=== PATIENT | female | born 1980 | race Caucasian/White ===

== ENCOUNTER 2019-10-21 18:29 | Emergency (ER) | payer OTHER ==
--- NOTE | 2019-10-21 19:31 | RAD REPORT ---
[facility] 7[facility]17 pm CLINICAL HISTORY: Chest pain COMPARISON: none FINDINGS: Lungs are hyperaerated The lungs appear clear of acute infiltrate. The heart is normal size
[2019-10-21 19:51] LABS: Absolute Lymphocytes (CBC) 2.5 K/uL (0.7-4.9); Basophils % 0.6 % (0-1.3); Hematocrit 40.2 % (36.0-45.0); Lymphocytes % 32.9 % (15.3-44.8); MPV 8.3 fL (7.6-11.3)
[2019-10-21] MEDS ORDERED: HYDROCODONE/APAP 5/325 MG TAB ONE (20:01)
[2019-10-21 20:21] LABS: BUN Blood Urea Nitrogen 4 mg/dL (7-18); Bicarbonate 28 mmol/L (21-32); Glucose Level 85 mg/dL (74-106); Magnesium 2.3 mg/dL (1.8-2.4); NT PRO-BNP 22 pg/mL (<125); Sodium Level 139 mmol/L (136-145); Troponin (Emerg Dept Use Only) < 0.02 ng/mL (0.0-0.045)
[2019-10-21] MEDS ORDERED: NA CHLORIDE 0.9% 250 ML ONE (20:32)
[2019-10-21] MEDS ORDERED: KCL 20 MEQ/100 mL IVPB 20 MEQ/100 ML BAG IV ONE (20:33)
[2019-10-21 20:37] LABS: Urine Blood NEGATIVE (NEG); Urine Glucose NEGATIVE (NEG); Urine Protein NEGATIVE (NEG); Urine Specific Gravity <1.005 (1.005-1.030); Urine pH 6.5 (5.0-7.0)
--- NOTE | 2019-10-21 22:14 | EDPHYS ---
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 19:38 The patient presents with a history of heart racing. Context: The symptoms occur at rn rest. 19:38 Onset: The symptoms/episode began/occurred at an unknown time. 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 Modifying factors: The symptoms are aggravated by nothing. The symptoms are alleviated by nothing. Associated signs and symptoms: Pertinent positives: lightheadedness, Pertinent negatives: chest pain, fever, SOB, syncope, near-syncope, vertigo, vomiting. Severity of symptoms: At their worst the symptoms were mild in the emergency department the symptoms are unchanged. The patient has experienced similar episodes in the past. Reports hx of tachycardia, unspecified, reports recently her cardia pp which has 6 lead ecg, showing HR between 100-130s, no chest pain/sob, assoc with dizziness but no syncope. Has had multiple w/u in past including 2 holter monitors that didn't show abnormality, prescribed propranolol in past. Denies current illness/vomiting/diarrhea/drugs. . 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 ca1 Historical: - Allergies: 18:46 Sulfa (Sulfonamide Antibiotics); ca1 18:46 Demerol; ca1 - Home Meds: 18:46 Wellbutrin Oral [Active]; gabapentin oral oral [Active]; amitriptyline Oral [Active]; ca1 eszopiclone oral oral [Active]; propranolol Oral [Active]; Omeprazole Oral [Active]; Promethazine Oral [Active]; - PMHx: 18:46 Gastroparesis; tachycardia; Asthma; Nerve pains; ca1 - PSHx: 18:46 Tonsillectomy; staph infection removed from shoulder; right knee surgery; plate to ca1 right leg; screws to right ankle; band and screws to left ankle; - Immunization history:: Adult Immunizations up to date, Flu vaccine is up to date. - Social history:: Smoking status: Patient denies any tobacco usage or history of. Patient/guardian denies using tobacco, the patient reports quitting approximately 3 years ago. - Family history:: not pertinent. - Hospitalizations: : No recent hospitalization is reported. ROS: 19:38 Constitutional: Negative for fever, chills, and weight loss, Eyes: Negative for injury, rn pain, redness, and discharge, Neck: Negative for injury, pain, and swelling, Cardiovascular: Negative for chest pain, and edema, Respiratory: Negative for shortness of breath, cough, wheezing Abdomen/GI: Negative for abdominal pain, nausea, vomiting, diarrhea, and constipation, MS/Extremity: Negative for injury and deformity, Skin: Negative for injury, rash, and discoloration, Neuro: Negative for headache, weakness, numbness, tingling, and seizure. Exam: 19:18 ECG was reviewed by the Attending Physician. rn 19:38 Constitutional: This is a well developed, well nourished patient who is awake, alert, rn and in no acute distress. Head/Face: Normocephalic, atraumatic. Eyes: Pupils equal round and reactive to light, extra-ocular motions intact. Lids and lashes normal. Conjunctiva and sclera are non-icteric and not injected. Cornea within normal limits. Periorbital areas with no swelling, redness, or edema. Cardiovascular: Tachycardic, regular, intact distal pulses Respiratory: Lungs have equal breath sounds bilaterally, clear to auscultation. No increased work of breathing, no retractions or nasal flaring. Skin: Warm, dry with normal turgor. Normal color with no rashes, no lesions, and no evidence of cellulitis. MS/ Extremity: Pulses equal, no cyanosis. Neurovascular intact. Full, normal range of motion. Equal circumference. Neuro: Awake and alert, GCS 15, oriented to person, place, time, and situation. Cranial nerves II-XII grossly intact. Motor strength 5/5 in all extremities. Sensory grossly intact. Cerebellar exam normal. Vital Signs: 18:39 BP 143 / 86; Pulse 112; Resp 16 S; Temp 98.4(O); Pulse Ox 98% on R/A; Weight 59.42 kg ca1 (R); Height 5 ft. 5 in. (165.10 cm) (R); 19:30 BP 132 / 94; Pulse 97; Resp 15; Pulse Ox 100% on R/A; lp1 20:30 BP 148 / 78; Pulse 96; Resp 18; Pulse Ox 100% on R/A; lp1 21:30 BP 132 / 84; Pulse 93; Resp 20; Pulse Ox 100% on R/A; lp1 18:39 Body Mass Index 21.80 (59.42 kg, 165.10 cm) ca1 MDM: 18:58 Patient medically screened. rn 22:11 Differential diagnosis: arrythmia, dehydration, stress disorder, PE, dehydration, rn effects from smoking, infection, electrolyte abnormality. Data reviewed: vital signs, nurses notes, lab test result(s), EKG, radiologic studies, CT scan, plain films, and as a result, I will discharge patient. Counseling: I had a detailed discussion with the patient and/or guardian regarding: the historical points, exam findings, and any diagnostic results supporting the discharge/admit diagnosis, lab results, radiology results, the need for outpatient follow up, to return to the emergency department if symptoms worsen or persist or if there are any questions or concerns that arise at home. Response to treatment: the patient's symptoms have markedly improved after treatment, and as a result, I will discharge patient. Special discussion: I discussed with the patient/guardian in detail that at this point there is no indication for admission to the hospital. It is understood, however, that if the symptoms persist or worsen the patient needs to return immediately for re-evaluation. Based on the history and exam findings, there is no indication for further emergent testing or inpatient evaluation. I discussed with the patient/guardian the need to see the internal control manager for further evaluation of the symptoms. ED course: Ct shows emphysema, spoke at length with patient, urged to f/u with pulmonology, take multivitamins for potassium, and take her propranolol that her fitness/wellness director prescribed more regularly. . 10/20 19:09 Order name: Basic Metabolic Panel; Complete Time: 20: rn 10/20 19:09 Order name: CBC with Diff; Complete Time: 20: rn 10/20 19:09 Order name: Magnesium; Complete Time: 20: rn 10/20 19:09 Order name: NT PRO-BNP; Complete Time: 20: rn 10/20 19:09 Order name: Troponin (emerg Dept Use Only); Complete Time: 20:22 rn 10/20 19:09 Order name: D-Dimer; Complete Time: 20:02 rn 10/20 19:09 Order name: XRAY Chest (1 view); Complete Time: 19:50 rn 10/20 19:09 Order name: TSH; Complete Time: 20:22 rn 10/20 19:09 Order name: T4 Free; Complete Time: 20:22 rn 10/20 20:02 Order name: CT Chest For PE Angio rn 10/20 20:27 Order name: Urine Dipstick--Ancillary (enter results); Complete Time: 22:01 mw2 10/20 19:09 Order name: EKG; Complete Time: 19:10 rn 10/20 19:09 Order name: Cardiac monitoring; Complete Time: 19:45 rn 10/20 19:09 Order name: EKG - Nurse/Tech; Complete Time: 19:45 rn 10/20 19:09 Order name: IV Saline Lock; Complete Time: 19:45 rn 10/20 19:09 Order name: Labs collected and sent; Complete Time: 19:45 rn 10/20 19:09 Order name: O2 Per Protocol; Complete Time: 19:46 rn 10/20 19:09 Order name: O2 Sat Monitoring; Complete Time: 19:46 rn EC:18 Rate is 110 beats/min. Rhythm is regular. QRS [place] is Normal. ME interval is normal. rn QRS interval is normal. QT interval is normal. No Q waves. T waves are Normal. No ST changes noted. Clinical impression: Normal ECG and Sinus tachycardia. Interpreted by me. Reviewed by me. Administered Medications: 20:01 Drug: [place] 5 mg-325 mg 1 tabs Route: PO; lp1 21:58 Follow up: Response: Pain is decreased lp1 20:52 Drug: Potassium Chloride 20 mEq Route: IV; Rate: calculated rate; Site: right lp1 antecubital; 20:52 Drug: NS 0.9% 250 ml Route: IV; Rate: per protocol; Site: right antecubital; lp1 23:15 Follow up: IV Status: Completed infusion lp1 Disposition: 10/21/19 22:13 Discharged to Home. Impression: Tachycardia, unspecified, Hypokalemia, Emphysema, unspecified. - Condition is Stable. - Discharge Instructions: Potassium Content of Foods, Hypokalemia. - Medication Reconciliation Form, Thank You Letter, Antibiotic Education, Prescription Opioid Use form. - Follow up: Private Physician; When: As needed; Reason: Recheck today's complaints, Re-evaluation by your physician. - Problem is new. - Symptoms have improved. Signatures: Dispatcher [employer] EDMS José Manuel Villarreal MD MD rn Pena, Laura, RN RN lp1 Mae Hanks RN RN [facility] Hillary Gamboa RN RN Corrections: (The following items were deleted from the chart) 23:33 22:13 10/21/2019 22:13 Discharged to Home. Impression: Tachycardia, unspecified; ah Hypokalemia; Emphysema, unspecified. Condition is Stable. Forms are Medication Reconciliation Form, Thank You Letter, Antibiotic Education, Prescription Opioid Use. Follow up: Private Physician; When: As needed; Reason: Recheck today's complaints, Re-evaluation by your physician. Problem is new. Symptoms have improved. rn
--- NOTE | 2019-10-21 22:14 | ER ---
Nurse's Notes [facility] Name: Ellie Perera Age: 38 yrs Sex: Female : 1980 Arrival Date: 10/21/2019 Time: 18:34 Bed 4 Private MD: Diagnosis: Tachycardia, unspecified;Hypokalemia;Emphysema, unspecified Presentation: 10/20 18:39 Chief complaint: Patient states: Monitoring heart rate on the [employer] humberto on phone, HR ca1 highest was 131, but is steady between 116 to 121. Reports history of tachycardia. reports dizziness, neck pain and nausea. Denies fever. Coronavirus screen: The patient has NOT traveled to [place] in the past 14 days. The patient has NOT had contact with known and/or suspected case of Coronavirus. Ebola Screen: Patient negative for fever greater than or equal to 101.5 degrees Fahrenheit, and additional compatible Ebola Virus Disease symptoms Patient denies exposure to infectious person. Patient denies travel to an Ebola-affected area in the 21 days before illness onset. No symptoms or risks identified at this time. Initial Sepsis Screen: Does the patient meet any 2 criteria? No. Patient's initial sepsis screen is negative. Does the patient have a suspected source of infection? No. Patient's initial sepsis screen is negative. Risk Assessment: Do you want to hurt yourself or someone else? Patient reports no desire to harm self or others. Onset of symptoms was October 21, 2019. 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 ca1 Historical: - Allergies: 18:46 Sulfa (Sulfonamide Antibiotics); ca1 18:46 Demerol; ca1 - Home Meds: 18:46 Wellbutrin Oral [Active]; gabapentin oral oral [Active]; amitriptyline Oral [Active]; ca1 eszopiclone oral oral [Active]; propranolol Oral [Active]; Omeprazole Oral [Active]; Promethazine Oral [Active]; - PMHx: 18:46 Gastroparesis; tachycardia; Asthma; Nerve pains; ca1 - PSHx: 18:46 Tonsillectomy; staph infection removed from shoulder; right knee surgery; plate to ca1 right leg; screws to right ankle; band and screws to left ankle; - Immunization history:: Adult Immunizations up to date, Flu vaccine is up to date. - Social history:: Smoking status: Patient denies any tobacco usage or history of. Patient/guardian denies using tobacco, the patient reports quitting approximately 3 years ago. - Family history:: not pertinent. - Hospitalizations: : No recent hospitalization is reported. Screenin:44 Abuse screen: Denies threats or abuse. Denies injuries from another. Nutritional lp1 screening: No deficits noted. Tuberculosis screening: No symptoms or risk factors identified. Fall Risk None identified. Assessment: 19:29 General: Appears in no apparent distress. Behavior is calm, cooperative, appropriate lp1 for age. Pain: Complains of pain in chest, bilateral lower legs. Neuro: Level of Consciousness is awake, alert, obeys commands, Oriented to person, place, time, situation, Reports dizziness. Cardiovascular: Patient's skin is warm and dry. Rhythm is sinus tachycardia. Respiratory: Respiratory effort is even, unlabored, Respiratory pattern is regular. 19:31 GI: Abdomen is flat. : No signs and/or symptoms were reported regarding the lp1 genitourinary system. EENT: No signs and/or symptoms were reported regarding the EENT system. Derm: Skin is pink, warm \T\ dry. Musculoskeletal: No deficits noted. 19:57 Reassessment: Provider notified of patient complaint of chronic leg pain, pain scale of lp1 8/10; Verbal order for [place] 5-325 PO now. 21:09 Reassessment: Patient is alert, oriented x 3, equal unlabored respirations, skin lp1 warm/dry/pink. Patient returned from CT at this time; No further needs at this time. 22:30 Reassessment: Patient aware of pending discharge; Potassium infusion continuing. lp1 Vital Signs: 18:39 BP 143 / 86; Pulse 112; Resp 16 S; Temp 98.4(O); Pulse Ox 98% on R/A; Weight 59.42 kg ca1 (R); Height 5 ft. 5 in. (165.10 cm) (R); 19:30 BP 132 / 94; Pulse 97; Resp 15; Pulse Ox 100% on R/A; lp1 20:30 BP 148 / 78; Pulse 96; Resp 18; Pulse Ox 100% on R/A; lp1 21:30 BP 132 / 84; Pulse 93; Resp 20; Pulse Ox 100% on R/A; lp1 18:39 Body Mass Index 21.80 (59.42 kg, 165.10 cm) ca1 ED Course: 18:34 Patient arrived in ED. mr 18:41 Triage completed. ca1 18:46 Arm band placed on. ca1 18:58 José Manuel Villarreal MD is Attending Physician. rn 19:15 Patient has correct armband on for positive identification. Placed in gown. Bed in low lp1 position. Call light in reach. lunchroom monitor on. Pulse ox on. NIBP on. 19:19 XRAY Chest (1 view) In Process Unspecified. EDMS 19:29 Stephanie Loving, RN is Primary Nurse. lp1 19:40 Inserted saline lock: 20 gauge in right antecubital area, using aseptic technique. lp1 Blood collected. 20:02 Notified ED physician of a critical lab result(s). D-dimer of 511. jd3 21:[address] back from [address]. 21:13 CT Chest For PE Angio In Process Unspecified. EDMS 23:20 No provider procedures requiring assistance completed. IV discontinued, intact, bleeding controlled, No redness/swelling at site. Pressure dressing applied. Administered Medications: 20:01 Drug: [place] 5 mg-325 mg 1 tabs Route: PO; lp1 21:58 Follow up: Response: Pain is decreased lp1 20:52 Drug: Potassium Chloride 20 mEq Route: IV; Rate: calculated rate; Site: right lp1 antecubital; 20:52 Drug: NS 0.9% 250 ml Route: IV; Rate: per protocol; Site: right antecubital; lp1 23:15 Follow up: IV Status: Completed infusion lp1 Outcome: 22:13 Discharge ordered by . rn 23:20 Discharged to home ambulatory. 23:20 Condition: good 23:20 Discharge instructions given to patient, family, Instructed on discharge instructions, follow up and referral plans. Demonstrated understanding of instructions, follow-up care. 23:33 Patient left the ED. Signatures: Dispatcher [employer] EDCO Marla Perera José Manuel Villarreal MD MD rn Pena, Laura, RN RN lp1 Jose Malin RN RN jd3 Mae Hanks RN RN ca1 Hillary Gamboa RN RN Corrections: (The following items were deleted from the chart) 18:47 18:46 LMP 10/13/2019 ca1 ca1 19:55 19:29 Pain: Complains of pain in chest lp1 lp1 20:04 19:57 Reassessment: Provider notified of patient complaint of leg pain; Verbal order lp1 for [place] 5-325 PO now lp1 22:48 20:30 BP 148 / ???; Pulse 78bpm; Resp 96bpm; Pulse Ox 100% RA; lp1 lp1
[2019-10-22 02:09] VITALS: TEMP 98.4
[2019-10-22 02:11] VITALS: O2SAT 100
[2019-10-22 02:14] VITALS: BP 132/84
--- NOTE | 2019-10-22 08:24 | EKG ---
Test Date: 2019-10-21 Test Time: 19:16:42 Trim Technician: Aileen FRAIRE MEASUREMENT RESULTS: Intervals: Rate: 110 CA: 180 QRSD: 86 QT: 338 QTc: 457 [place]: P: 75 CA: 180 QRS: 69 T: 47 INTERPRETIVE STATEMENTS: Sinus tachycardia Otherwise normal ECG No previous ECG available for comparison Electronically Signed On 10-22-19 08:23:52 EXECUTIVE ADMIN by Shree Gamboa
--- NOTE | 2019-10-22 11:02 | RAD REPORT ---
EXAM DESCRIPTION: CT Chest For PE Angio CLINICAL HISTORY: 38 years Female Chest pain; Palpitations TECHNIQUE: Contiguous axial images obtained through the chest were obtained from the thoracic inlet to the level of the upper abdomen during the pulmonary arterial phase of intravenous contrast adminis tration. Coronal, sagittal, and coronal oblique reformatted images provided. This CT exam was performed according to our departmental dose-optimization program, which includes on e or more of the following dose reduction techniques: automated exposure control, adjustment of the m A and/or kV according to patient size, and/or use of iterative reconstruction technique. COMPARISON: No prior exams provided for comparison. FINDINGS: There is no pulmonary embolus. The thoracic aorta is normal without aneurysm or dissection. The heart is normal in size without niurka cardial effusion. Mild to moderate paraseptal emphysema. No focal airspace infiltrate, pleural effusion, or pneumothora x. The central airways are patent. No enlarged mediastinal lymph nodes. There are no visualized acute osseous or upper abdominal abnormalities. IMPRESSION: No pulmonary embolus. Emphysema. No acute cardiopulmonary findings. Electronically signed by: Yudelka Gibbs MD 10/21/2019 9:40 PM CENTER CONSULTANT Due to temporary technical issues with the PACS/Fluency reporting system, reports are being signed by the in house radiologist as a courtesy to ensure prompt reporting. The interpreting radiologist is f ully responsible for the content of the report.
== END 2019-10-21 23:33 | disposition home or self-care (01) ==
LOC: ER 18:29
DX: R00.0 Tachycardia, unspecified (principal); E87.6 Hypokalemia; J43.9 Emphysema, unspecified; J45.909 Unspecified asthma, uncomplicated; Z88.2 Allergy status to sulfonamides; Z88.5 Allergy status to narcotic agent
CPT/HCPCS: 96365; 93005; 85025; 80048; 36415; 83735; 85379; 84443; 81003; 84484; 84439; 83880; 71275; 71045; 96375; 99285; 96366; Q9967; J7030

== ENCOUNTER 2022-10-21 04:24 | Emergency (ER) | payer OTHER ==
--- OUTSIDE RECORDS SUMMARY | 2022-10-21 04:43 | XMS REPORT | Continuity of Care Document ---
:[address] [facility] t Address [address] [place] [address] Care Team Providers Name Role Phone Luanne De La Rosa Primary Care Physician [phone] Problems This patient has no known problems. Allergies, Adverse Reactions, Alerts Allergy Allergy Status Severity Reaction(s) Onset Inactive Treating Comm ents Source Name Type Date Date Clinician n Propensi Active ty to 6-27 adverse 00:00: reaction 00 to drug Demerol Propensi Active - Oral ty to 3-28 adverse 00:00: reaction 00 to drug Sulfa Propensi Active (Sulfona ty to 1-17 mide adverse 00:00: Antibiot reaction 00 ics) to drug Medications Ordered Filled Start Stop Current Ordering Indication Dosage Frequency Signature Comments Components Source Medication Medication Date Date Medication? Clinician (SIG) Name Name TAKE 08-21 No CAPSULES BY 0-19 MOUTH THREE 00:00: TIMES DAILY 00 NEEDED TAKE 08-21 No CAPSULES BY 0-19 MOUTH THREE 00:00: TIMES DAILY 00 NEEDED TAKE 08-21 No CAPSULES BY 0-19 MOUTH THREE 00:00: TIMES DAILY 00 NEEDED TAKE 2021-08 No TABLET BY 0-18 MOUTH EVERY 00:00: DAY 00 TAKE 2021-08 No TABLET BY 0-18 MOUTH EVERY 00:00: DAY 00 TAKE 2021-08 No TABLET BY 0-18 MOUTH EVERY 00:00: DAY 00 TAKE No 300 TABLET BY 8-16 MOUTH EVERY 00:00: DAY 00 TAKE No 300 TABLET BY 8-16 MOUTH EVERY 00:00: DAY 00 TAKE No 300 TABLET BY 8-16 MOUTH EVERY 00:00: DAY 00 TAKE 1 2022-0 No 300 TABLET BY 8-16 MOUTH EVERY 00:00: DAY 00 TAKE 1-2 2022-0 No 300 CAPSULES BY 8-15 MOUTH THREE 00:00: TIMES DAILY 00 NEEDED TAKE 1-2 2022-0 No 300 CAPSULES BY 8-15 MOUTH THREE 00:00: TIMES DAILY 00 NEEDED TAKE 1-2 2022-0 No 300 CAPSULES BY 8-15 MOUTH THREE 00:00: TIMES DAILY 00 NEEDED TAKE 1-2 2022-0 No 300 CAPSULES BY 8-15 MOUTH THREE 00:00: TIMES DAILY 00 NEEDED TAKE 1 TO 2 2022-0 No CAPSULES BY 6-27 MOUTH THREE 00:00: TIMES DAILY 00 NEEDED &lt 2022-0 No 6-27 00:00: 00 INHALE 1 2022-0 No PUFF BY 6-27 MOUTH EVERY 00:00: 24 HOURS 00 TAKE 1 TO 2 2022-0 No CAPSULES BY 6-27 MOUTH THREE 00:00: TIMES DAILY 00 NEEDED &lt 2022-0 No 6-27 00:00: 00 INHALE 1 2022-0 No PUFF BY 6-27 MOUTH EVERY 00:00: 24 HOURS 00 TAKE 1 TO 2 2022-0 No CAPSULES BY 6-27 MOUTH THREE 00:00: TIMES DAILY 00 NEEDED &lt 2022-0 No 6-27 00:00: 00 INHALE 1 2022-0 No PUFF BY 6-27 MOUTH EVERY 00:00: 24 HOURS 00 TAKE 1 TO 2 2022-0 No CAPSULES BY 6-27 MOUTH THREE 00:00: TIMES DAILY 00 NEEDED &lt 2022-0 No 6-27 00:00: 00 INHALE 1 2022-0 No PUFF BY 6-27 MOUTH EVERY 00:00: 24 HOURS 00 Dose 2022-0 No Unknown 4-07 00:00: 00 Dose 2022-0 No Unknown 4-07 00:00: 00 Dose 2022-0 No Unknown 4-07 00:00: 00 Dose 2022-0 No Unknown 4-07 00:00: 00 Dose 2022-0 No Unknown 4-07 00:00: 00 Dose 2022-0 No Unknown 4-07 00:00: 00 Dose 2022-0 No Unknown 4-07 00:00: 00 Dose 2022-0 No Unknown 4-07 00:00: 00 Dose 2022-0 No Unknown 4-07 00:00: 00 Dose 2022-0 No Unknown 4-07 00:00: 00 Dose 2022-0 No Unknown 4-07 00:00: 00 Dose 2022-0 No Unknown 4-07 00:00: 00 Dose 2022-0 No Unknown 4-07 00:00: 00 Dose 2022-0 No Unknown 4-07 00:00: 00 Dose 2022-0 No Unknown 4-07 00:00: 00 Dose 2022-0 No Unknown 4-07 00:00: 00 Dose 2022-0 No Unknown 4-07 00:00: 00 Dose 2022-0 No Unknown 4-07 00:00: 00 Dose 2022-0 No Unknown 4-07 00:00: 00 Dose 2022-0 No Unknown 4-07 00:00: 00 Dose 2022-0 No Unknown 4-07 00:00: 00 Dose 2022-0 No Unknown 4-07 00:00: 00 Dose 2022-0 No Unknown 4-07 00:00: 00 Dose 2022-0 No Unknown 4-07 00:00: 00 Dose 2022-0 No Unknown 4-06 00:00: 00 Dose 2022-0 No Unknown 4-06 00:00: 00 Dose 2022-0 No Unknown 4-06 00:00: 00 Dose 2022-0 No Unknown 4-06 00:00: 00 Dose 2022-0 No Unknown 4-06 00:00: 00 Dose 2022-0 No Unknown 4-06 00:00: 00 Dose 2022-0 No Unknown 4-06 00:00: 00 Dose 2022-0 No Unknown 4-06 00:00: 00 Dose 2022-0 No Unknown 4-06 00:00: 00 Dose 2022-0 No Unknown 4-06 00:00: 00 Dose 2022-0 No Unknown 4-06 00:00: 00 Dose 2022-0 No Unknown 4-06 00:00: 00 pravastatin 2022-0 No 1mg 40 mg 4-01 tablet 00:00: 00 pravastatin 2022-0 No 1mg 40 mg 4-01 tablet 00:00: 00 pravastatin 2022-0 No 1mg 40 mg 4-01 tablet 00:00: 00 pravastatin 2022-0 No 1mg 40 mg 4-01 tablet 00:00: 00 Dose 2022-0 No Unknown 3-28 00:00: 00 Dose 2022-0 No Unknown 3-28 00:00: 00 Dose 2022-0 No Unknown 3-28 00:00: 00 Dose 2022-0 No Unknown 3-28 00:00: 00 Dose 2022-0 No Unknown 3-28 00:00: 00 Dose 2022-0 No Unknown 3-28 00:00: 00 Dose 2022-0 No Unknown 3-28 00:00: 00 Dose 2022-0 No Unknown 3-28 00:00: 00 Dose 2022-0 No Unknown 3-28 00:00: 00 Dose 2022-0 No Unknown 3-28 00:00: 00 Dose 2022-0 No Unknown 3-28 00:00: 00 Dose 2022-0 No Unknown 3-28 00:00: 00 Dose 2022-0 No Unknown 3-28 00:00: 00 Dose 2022-0 No Unknown 3-28 00:00: 00 Dose 2022-0 No Unknown 3-28 00:00: 00 Dose 2022-0 No Unknown 3-28 00:00: 00 Dose 2022-0 No Unknown 3-28 00:00: 00 Dose 2022-0 No Unknown 3-28 00:00: 00 Dose 2022-0 No Unknown 3-28 00:00: 00 Dose 2022-0 No Unknown 3-28 00:00: 00 Dose 2022-0 No Unknown 3-28 00:00: 00 Dose 2022-0 No Unknown 3-28 00:00: 00 Dose 2022-0 No Unknown 3-28 00:00: 00 Dose 2022-0 No Unknown 3-28 00:00: 00 Dose 2022-0 No Unknown 3-28 00:00: 00 Dose 2022-0 No Unknown 3-28 00:00: 00 Dose 2022-0 No Unknown 3-28 00:00: 00 Dose 2022-0 No Unknown 3-28 00:00: 00 Dose 2022-0 No Unknown 3-28 00:00: 00 Dose 2022-0 No Unknown 3-28 00:00: 00 Dose 2022-0 No Unknown 3-28 00:00: 00 Dose 2022-0 No Unknown 3-28 00:00: 00 Dose 2022-0 No Unknown 3-28 00:00: 00 Dose 2022-0 No Unknown 3-28 00:00: 00 Dose 2022-0 No Unknown 3-28 00:00: 00 Dose 2022-0 No Unknown 3-28 00:00: 00 Dose 2022-0 No Unknown 3-28 00:00: 00 Dose 2022-0 No Unknown 3-28 00:00: 00 Dose 2022-0 No Unknown 3-28 00:00: 00 Dose 2022-0 No Unknown 3-28 00:00: 00 Dose 2022-0 No Unknown 3-28 00:00: 00 Dose 2022-0 No Unknown 3-28 00:00: 00 Dose 2022-0 No Unknown 3-28 00:00: 00 Dose 2022-0 No Unknown 3-28 00:00: 00 Dose 2022-0 No Unknown 3-28 00:00: 00 Dose 2022-0 No Unknown 3-28 00:00: 00 Dose 2022-0 No Unknown 3-28 00:00: 00 Dose 2022-0 No Unknown 3-28 00:00: 00 Dose 2022-0 No Unknown 3-28 00:00: 00 Dose 2022-0 No Unknown 3-28 00:00: 00 Dose 2022-0 No Unknown 3-28 00:00: 00 Dose 2022-0 No Unknown 3-28 00:00: 00 Dose 2022-0 No Unknown 3-28 00:00: 00 Dose 2022-0 No Unknown 3-28 00:00: 00 Dose 2022-0 No Unknown 3-28 00:00: 00 Dose 2022-0 No Unknown 3-28 00:00: 00 Dose 2022-0 No Unknown 3-28 00:00: 00 Dose 2022-0 No Unknown 3-28 00:00: 00 Dose 2022-0 No Unknown 3-28 00:00: 00 Dose 2022-0 No Unknown 3-28 00:00: 00 Dose 2022-0 No Unknown 3-28 00:00: 00 Dose 2022-0 No Unknown 3-28 00:00: 00 Dose 2022-0 No Unknown 3-28 00:00: 00 Dose 2022-0 No Unknown 3-28 00:00: 00 Dose 2022-0 No Unknown 3-28 00:00: 00 Dose 2022-0 No Unknown 3-28 00:00: 00 Dose 2022-0 No Unknown 3-28 00:00: 00 Dose 2022-0 No Unknown 3-28 00:00: 00 Dose 2022-0 No Unknown 3-28 00:00: 00 Dose 2022-0 No Unknown 3-28 00:00: 00 Dose 2022-0 No Unknown 3-28 00:00: 00 Dose 2022-0 No Unknown 3-28 00:00: 00 Dose 2022-0 No Unknown 3-28 00:00: 00 Dose 2022-0 No Unknown 3-28 00:00: 00 Dose 2022-0 No Unknown 3-28 00:00: 00 Dose 2022-0 No Unknown 3-28 00:00: 00 Dose 2022-0 No Unknown 3-28 00:00: 00 Dose 2022-0 No Unknown 3-28 00:00: 00 Dose 2022-0 No Unknown 3-28 00:00: 00 Dose 2022-0 No Unknown 3-28 00:00: 00 Dose 2022-0 No Unknown 3-28 00:00: 00 Dose 2022-0 No Unknown 3-28 00:00: 00 Dose 2022-0 No Unknown 3-28 00:00: 00 Dose 2022-0 No Unknown 3-28 00:00: 00 Dose 2022-0 No Unknown 3-28 00:00: 00 Dose 2022-0 No Unknown 3-28 00:00: 00 Dose 2022-0 No Unknown 3-28 00:00: 00 Dose 2022-0 No Unknown 3-28 00:00: 00 Dose 2022-0 No Unknown 3-28 00:00: 00 Dose 2022-0 No Unknown 3-28 00:00: 00 Dose 2022-0 No Unknown 3-28 00:00: 00 Dose 2022-0 No Unknown 3-28 00:00: 00 Dose 2022-0 No Unknown 3-28 00:00: 00 Dose 2022-0 No Unknown 3-28 00:00: 00 Dose 2022-0 No Unknown 3-28 00:00: 00 Dose 2022-0 No Unknown 3-28 00:00: 00 Dose 2022-0 No Unknown 3-28 00:00: 00 Dose 2022-0 No Unknown 3-28 00:00: 00 Dose 2022-0 No Unknown 3-28 00:00: 00 Dose 2022-0 No Unknown 3-28 00:00: 00 Dose 2022-0 No Unknown 3-28 00:00: 00 Dose 2022-0 No Unknown 3-28 00:00: 00 Dose 2022-0 No Unknown 3-28 00:00: 00 Dose 2022-0 No Unknown 3-28 00:00: 00 Dose 2022-0 No Unknown 3-28 00:00: 00 Dose 2022-0 No Unknown 3-28 00:00: 00 Dose 2022-0 No Unknown 3-28 00:00: 00 Dose 2022-0 No Unknown 3-28 00:00: 00 Dose 2022-0 No Unknown 3-28 00:00: 00 Dose 2022-0 No Unknown 3-28 00:00: 00 Dose 2022-0 No Unknown 3-28 00:00: 00 Dose 2022-0 No Unknown 3-28 00:00: 00 Dose 2022-0 No Unknown 3-28 00:00: 00 Dose 2022-0 No Unknown 3-28 00:00: 00 Dose 2022-0 No Unknown 3-28 00:00: 00 Dose 2022-0 No Unknown 3-28 00:00: 00 Dose 2022-0 No Unknown 3-28 00:00: 00 Dose 2022-0 No Unknown 3-28 00:00: 00 Dose 2022-0 No Unknown 3-28 00:00: 00 Dose 2022-0 No Unknown 3-28 00:00: 00 Dose 2022-0 No Unknown 3-28 00:00: 00 Dose 2022-0 No Unknown 3-28 00:00: 00 Dose 2022-0 No Unknown 3-28 00:00: 00 Dose 2022-0 No Unknown 3-28 00:00: 00 Dose 2022-0 No Unknown 3-28 00:00: 00 Dose 2022-0 No Unknown 3-28 00:00: 00 Dose 2022-0 No Unknown 3-28 00:00: 00 Dose 2022-0 No Unknown 3-28 00:00: 00 Dose 2022-0 No Unknown 3-28 00:00: 00 Dose 2022-0 No Unknown 3-28 00:00: 00 Dose 2022-0 No Unknown 3-28 00:00: 00 Dose 2022-0 No Unknown 3-28 00:00: 00 Dose 2022-0 No Unknown 3-28 00:00: 00 Dose 2022-0 No Unknown 3-28 00:00: 00 Dose 2022-0 No Unknown 3-28 00:00: 00 Dose 2022-0 No Unknown 3-28 00:00: 00 Dose 2022-0 No Unknown 3-28 00:00: 00 Dose 2022-0 No Unknown 3-28 00:00: 00 Dose 2022-0 No Unknown 3-28 00:00: 00 Dose 2022-0 No Unknown 3-28 00:00: 00 Dose 2022-0 No Unknown 3-28 00:00: 00 Dose 2022-0 No Unknown 3-28 00:00: 00 Dose 2022-0 No Unknown 3-28 00:00: 00 Dose 2022-0 No Unknown 3-28 00:00: 00 Dose 2022-0 No Unknown 3-28 00:00: 00 Dose 2022-0 No Unknown 3-28 00:00: 00 Dose 2022-0 No Unknown 3-28 00:00: 00 Dose 2022-0 No Unknown 3-28 00:00: 00 Dose 2022-0 No Unknown 3-28 00:00: 00 Dose 2022-0 No Unknown 3-28 00:00: 00 Dose 2022-0 No Unknown 3-28 00:00: 00 Dose 2022-0 No Unknown 3-28 00:00: 00 Dose 2022-0 No Unknown 3-28 00:00: 00 Dose 2022-0 No Unknown 3-28 00:00: 00 Dose 2022-0 No Unknown 3-28 00:00: 00 Dose 2022-0 No Unknown 3-28 00:00: 00 Dose 2022-0 No Unknown 3-28 00:00: 00 Dose 2022-0 No Unknown 3-28 00:00: 00 Dose 2022-0 No Unknown 3-28 00:00: 00 Dose 2022-0 No Unknown 3-28 00:00: 00 Dose 2022-0 No Unknown 3-28 00:00: 00 Dose 2022-0 No Unknown 3-28 00:00: 00 Dose 2022-0 No Unknown 3-28 00:00: 00 Dose 2022-0 No Unknown 3-28 00:00: 00 Dose 2022-0 No Unknown 3-28 00:00: 00 Dose 2022-0 No Unknown 3-28 00:00: 00 Dose 2022-0 No Unknown 3-28 00:00: 00 Dose 2022-0 No Unknown 3-28 00:00: 00 Dose 2022-0 No Unknown 3-28 00:00: 00 Dose 2022-0 No Unknown 3-28 00:00: 00 Dose 2022-0 No Unknown 3-28 00:00: 00 Dose 2022-0 No Unknown 3-28 00:00: 00 Dose 2022-0 No Unknown 3-28 00:00: 00 Dose 2022-0 No Unknown 3-28 00:00: 00 Dose 2022-0 No Unknown 3-28 00:00: 00 Dose 2022-0 No Unknown 3-28 00:00: 00 Dose 2022-0 No Unknown 3-28 00:00: 00 Dose 2022-0 No Unknown 3-28 00:00: 00 Dose 2022-0 No Unknown 3-28 00:00: 00 Dose 2022-0 No Unknown 3-28 00:00: 00 Dose 2022-0 No Unknown 3-28 00:00: 00 Dose 2022-0 No Unknown 3-28 00:00: 00 Dose 2022-0 No Unknown 3-28 00:00: 00 Dose 2022-0 No Unknown 3-28 00:00: 00 Dose 2022-0 No Unknown 3-28 00:00: 00 Dose 2022-0 No Unknown 3-28 00:00: 00 Dose 2022-0 No Unknown 3-28 00:00: 00 Dose 2022-0 No Unknown 3-28 00:00: 00 Dose 2022-0 No Unknown 3-28 00:00: 00 Dose 2022-0 No Unknown 3-28 00:00: 00 Dose 2022-0 No Unknown 3-28 00:00: 00 Dose 2022-0 No Unknown 3-28 00:00: 00 Dose 2022-0 No Unknown 3-28 00:00: 00 Dose 2022-0 No Unknown 3-28 00:00: 00 Dose 2022-0 No Unknown 3-28 00:00: 00 Dose 2022-0 No Unknown 3-28 00:00: 00 Dose 2022-0 No Unknown 3-28 00:00: 00 Dose 2022-0 No Unknown 3-28 00:00: 00 Dose 2022-0 No Unknown 3-28 00:00: 00 Dose 2022-0 No Unknown 3-28 00:00: 00 Dose 2022-0 No Unknown 3-28 00:00: 00 Dose 2022-0 No Unknown 3-28 00:00: 00 Dose 2022-0 No Unknown 3-28 00:00: 00 Dose 2022-0 No Unknown 3-28 00:00: 00 Dose 2022-0 No Unknown 3-28 00:00: 00 Dose 2022-0 No Unknown 3-28 00:00: 00 Dose 2022-0 No Unknown 3-28 00:00: 00 Dose 2022-0 No Unknown 3-28 00:00: 00 Dose 2022-0 No Unknown 3-28 00:00: 00 Dose 2022-0 No Unknown 3-28 00:00: 00 Dose 2022-0 No Unknown 3-28 00:00: 00 Dose 2022-0 No Unknown 3-28 00:00: 00 Dose 2022-0 No Unknown 3-28 00:00: 00 Dose 2022-0 No Unknown 3-28 00:00: 00 Dose 2022-0 No Unknown 3-28 00:00: 00 Dose 2022-0 No Unknown 3-28 00:00: 00 Dose 2022-0 No Unknown 3-28 00:00: 00 Dose 2022-0 No Unknown 3-28 00:00: 00 Dose 2022-0 No Unknown 3-28 00:00: 00 Dose 2022-0 No Unknown 3-28 00:00: 00 Dose 2022-0 No Unknown 3-28 00:00: 00 Dose 2022-0 No Unknown 3-28 00:00: 00 Dose 2022-0 No Unknown 3-28 00:00: 00 Dose 2022-0 No Unknown 3-28 00:00: 00 Dose 2022-0 No Unknown 3-28 00:00: 00 Dose 2022-0 No Unknown 3-28 00:00: 00 Dose 2022-0 No Unknown 3-28 00:00: 00 Dose 2022-0 No Unknown 3-28 00:00: 00 Dose 2022-0 No Unknown 3-28 00:00: 00 Dose 2022-0 No Unknown 3-28 00:00: 00 Dose 2022-0 No Unknown 3-28 00:00: 00 Dose 2022-0 No Unknown 3-28 00:00: 00 Dose 2022-0 No Unknown 3-28 00:00: 00 Dose 2022-0 No Unknown 3-28 00:00: 00 Dose 2022-0 No Unknown 3-28 00:00: 00 Dose 2022-0 No Unknown 3-28 00:00: 00 Dose 2022-0 No Unknown 3-28 00:00: 00 Dose 2022-0 No Unknown 3-28 00:00: 00 Dose 2022-0 No Unknown 3-28 00:00: 00 Dose 2022-0 No Unknown 3-28 00:00: 00 Dose 2022-0 No Unknown 3-28 00:00: 00 Dose 2022-0 No Unknown 3-28 00:00: 00 Dose 2022-0 No Unknown 3-28 00:00: 00 Dose 2022-0 No Unknown 3-28 00:00: 00 Dose 2022-0 No Unknown 3-28 00:00: 00 Dose 2022-0 No Unknown 3-28 00:00: 00 Dose 2022-0 No Unknown 3-28 00:00: 00 Dose 2022-0 No Unknown 3-28 00:00: 00 Dose 2022-0 No Unknown 3-28 00:00: 00 Dose 2022-0 No Unknown 3-28 00:00: 00 Dose 2022-0 No Unknown 3-28 00:00: 00 Dose 2022-0 No Unknown 3-28 00:00: 00 Dose 2022-0 No Unknown 3-28 00:00: 00 Dose 2022-0 No Unknown 3-28 00:00: 00 Dose 2022-0 No Unknown 3-28 00:00: 00 Dose 2022-0 No Unknown 3-28 00:00: 00 Dose 2022-0 No Unknown 3-28 00:00: 00 Dose 2022-0 No Unknown 3-28 00:00: 00 Dose 2022-0 No Unknown 3-28 00:00: 00 Dose 2022-0 No Unknown 3-28 00:00: 00 Dose 2022-0 No Unknown 3-28 00:00: 00 Dose 2022-0 No Unknown 3-28 00:00: 00 Dose 2022-0 No Unknown 3-28 00:00: 00 Dose 2022-0 No Unknown 3-28 00:00: 00 Dose 2022-0 No Unknown 3-28 00:00: 00 Dose 2022-0 No Unknown 3-28 00:00: 00 Dose 2022-0 No Unknown 3-28 00:00: 00 Dose 2022-0 No Unknown 3-28 00:00: 00 Dose 2022-0 No Unknown 3-28 00:00: 00 Dose 2022-0 No Unknown 3-28 00:00: 00 Dose 2022-0 No Unknown 3-28 00:00: 00 Dose 2022-0 No Unknown 3-28 00:00: 00 Dose 2022-0 No Unknown 3-28 00:00: 00 Dose 2022-0 No Unknown 3-28 00:00: 00 Dose 2022-0 No Unknown 3-28 00:00: 00 Dose 2022-0 No Unknown 3-28 00:00: 00 Dose 2022-0 No Unknown 3-28 00:00: 00 Dose 2022-0 No Unknown 3-28 00:00: 00 Dose 2022-0 No Unknown 3-28 00:00: 00 Dose 2022-0 No Unknown 3-28 00:00: 00 Dose 2022-0 No Unknown 3-28 00:00: 00 Dose 2022-0 No Unknown 3-28 00:00: 00 Dose 2022-0 No Unknown 3-28 00:00: 00 Dose 2022-0 No Unknown 3-28 00:00: 00 Dose 2022-0 No Unknown 3-28 00:00: 00 Dose 2022-0 No Unknown 3-28 00:00: 00 Dose 2022-0 No Unknown 3-28 00:00: 00 Dose 2022-0 No Unknown 3-28 00:00: 00 Dose 2022-0 No Unknown 3-28 00:00: 00 Dose 2022-0 No Unknown 3-28 00:00: 00 Dose 2022-0 No Unknown 3-28 00:00: 00 Dose 2022-0 No Unknown 3-28 00:00: 00 Dose 2022-0 No Unknown 3-28 00:00: 00 Dose 2022-0 No Unknown 3-28 00:00: 00 Dose 2022-0 No Unknown 3-28 00:00: 00 Dose 2022-0 No Unknown 3-28 00:00: 00 Dose 2022-0 No Unknown 3-28 00:00: 00 Dose 2022-0 No Unknown 3-28 00:00: 00 Dose 2022-0 No Unknown 3-28 00:00: 00 Dose 2022-0 No Unknown 3-28 00:00: 00 Dose 2022-0 No Unknown 3-28 00:00: 00 Dose 2022-0 No Unknown 3-28 00:00: 00 Dose 2022-0 No Unknown 3-28 00:00: 00 Dose 2022-0 No Unknown 3-28 00:00: 00 Dose 2022-0 No Unknown 3-28 00:00: 00 Dose 2022-0 No Unknown 3-28 00:00: 00 Dose 2022-0 No Unknown 3-28 00:00: 00 Dose 2022-0 No Unknown 3-28 00:00: 00 Dose 2022-0 No Unknown 3-28 00:00: 00 Dose 2022-0 No Unknown 3-28 00:00: 00 Dose 2022-0 No Unknown 3-28 00:00: 00 Dose 2022-0 No Unknown 3-28 00:00: 00 Dose 2022-0 No Unknown 3-28 00:00: 00 Dose 2022-0 No Unknown 3-28 00:00: 00 Dose 2022-0 No Unknown 3-28 00:00: 00 Dose 2022-0 No Unknown 3-28 00:00: 00 Dose 2022-0 No Unknown 3-28 00:00: 00 Dose 2022-0 No Unknown 3-28 00:00: 00 Dose 2022-0 No Unknown 3-28 00:00: 00 Dose 2022-0 No Unknown 3-28 00:00: 00 Dose 2022-0 No Unknown 3-28 00:00: 00 Dose 2022-0 No Unknown 3-28 00:00: 00 Dose 2022-0 No Unknown 3-28 00:00: 00 Dose 2022-0 No Unknown 3-28 00:00: 00 Dose 2022-0 No Unknown 3-28 00:00: 00 Dose 2022-0 No Unknown 3-28 00:00: 00 Dose 2022-0 No Unknown 3-28 00:00: 00 Dose 2022-0 No Unknown 3-28 00:00: 00 Dose 2022-0 No Unknown 3-28 00:00: 00 Dose 2022-0 No Unknown 3-28 00:00: 00 Dose 2022-0 No Unknown 3-28 00:00: 00 Dose 2022-0 No Unknown 3-28 00:00: 00 Dose 2022-0 No Unknown 3-28 00:00: 00 Dose 2022-0 No Unknown 3-28 00:00: 00 Dose 2022-0 No Unknown 3-28 00:00: 00 Dose 2022-0 No Unknown 3-28 00:00: 00 Dose 2022-0 No Unknown 3-28 00:00: 00 Dose 2022-0 No Unknown 3-28 00:00: 00 Dose 2022-0 No Unknown 3-28 00:00: 00 Dose 2022-0 No Unknown 3-28 00:00: 00 Dose 2022-0 No Unknown 3-28 00:00: 00 Dose 2022-0 No Unknown 3-28 00:00: 00 Dose 2022-0 No Unknown 3-28 00:00: 00 Dose 2022-0 No Unknown 3-28 00:00: 00 Dose 2022-0 No Unknown 3-28 00:00: 00 Dose 2022-0 No Unknown 3-28 00:00: 00 Dose 2022-0 No Unknown 3-28 00:00: 00 Dose 2022-0 No Unknown 3-28 00:00: 00 Dose 2022-0 No Unknown 3-28 00:00: 00 Dose 2022-0 No Unknown 3-28 00:00: 00 Dose 2022-0 No Unknown 3-28 00:00: 00 Dose 2022-0 No Unknown 3-28 00:00: 00 Dose 2022-0 No Unknown 3-28 00:00: 00 Dose 2022-0 No Unknown 3-28 00:00: 00 Dose 2022-0 No Unknown 3-28 00:00: 00 Dose 2022-0 No Unknown 3-28 00:00: 00 Dose 2022-0 No Unknown 3-28 00:00: 00 Dose 2022-0 No Unknown 3-28 00:00: 00 Dose 2022-0 No Unknown 3-28 00:00: 00 Dose 2022-0 No Unknown 3-28 00:00: 00 Dose 2022-0 No Unknown 3-28 00:00: 00 Dose 2022-0 No Unknown 3-28 00:00: 00 Dose 2022-0 No Unknown 3-28 00:00: 00 Dose 2022-0 No Unknown 3-28 00:00: 00 Dose 2022-0 No Unknown 3-28 00:00: 00 Dose 2022-0 No Unknown 3-28 00:00: 00 Dose 2022-0 No Unknown 3-28 00:00: 00 Dose 2022-0 No Unknown 3-28 00:00: 00 Dose 2022-0 No Unknown 3-28 00:00: 00 Dose 2022-0 No Unknown 3-28 00:00: 00 Dose 2022-0 No Unknown 3-28 00:00: 00 Dose 2022-0 No Unknown 3-28 00:00: 00 Dose 2022-0 No Unknown 3-28 00:00: 00 Dose 2022-0 No Unknown 3-28 00:00: 00 Dose 2022-0 No Unknown 3-28 00:00: 00 Dose 2022-0 No Unknown 3-28 00:00: 00 Dose 2022-0 No Unknown 3-28 00:00: 00 Dose 2022-0 No Unknown 3-28 00:00: 00 Dose 2022-0 No Unknown 3-28 00:00: 00 Dose 2022-0 No Unknown 3-28 00:00: 00 Dose 2022-0 No Unknown 3-28 00:00: 00 Dose 2022-0 No Unknown 3-28 00:00: 00 Dose 2022-0 No Unknown 3-28 00:00: 00 Dose 2022-0 No Unknown 3-28 00:00: 00 Dose 2022-0 No Unknown 3-28 00:00: 00 Dose 2022-0 No Unknown 3-28 00:00: 00 Dose 2022-0 No Unknown 3-28 00:00: 00 Dose 2022-0 No Unknown 3-28 00:00: 00 Dose 2022-0 No Unknown 3-28 00:00: 00 Dose 2022-0 No Unknown 3-28 00:00: 00 Dose 2022-0 No Unknown 3-28 00:00: 00 Dose 2022-0 No Unknown 3-28 00:00: 00 Dose 2022-0 No Unknown 3-28 00:00: 00 Dose 2022-0 No Unknown 3-28 00:00: 00 Dose 2022-0 No Unknown 3-28 00:00: 00 Dose 2022-0 No Unknown 3-28 00:00: 00 Dose 2022-0 No Unknown 3-28 00:00: 00 Dose 2022-0 No Unknown 3-28 00:00: 00 Dose 2022-0 No Unknown 3-28 00:00: 00 Dose 2022-0 No Unknown 3-28 00:00: 00 Dose 2022-0 No Unknown 3-28 00:00: 00 Dose 2022-0 No Unknown 3-28 00:00: 00 Dose 2022-0 No Unknown 3-28 00:00: 00 Dose 2022-0 No Unknown 3-28 00:00: 00 Dose 2022-0 No Unknown 3-28 00:00: 00 Dose 2022-0 No Unknown 3-28 00:00: 00 Dose 2022-0 No Unknown 3-28 00:00: 00 Dose 2022-0 No Unknown 3-28 00:00: 00 Dose 2022-0 No Unknown 3-28 00:00: 00 Dose 2022-0 No Unknown 3-28 00:00: 00 Dose 2022-0 No Unknown 3-28 00:00: 00 Dose 2022-0 No Unknown 3-28 00:00: 00 Dose 2022-0 No Unknown 3-28 00:00: 00 Dose 2022-0 No Unknown 3-28 00:00: 00 Dose 2022-0 No Unknown 3-28 00:00: 00 Dose 2022-0 No Unknown 3-28 00:00: 00 Dose 2022-0 No Unknown 3-28 00:00: 00 Dose 2022-0 No Unknown 3-28 00:00: 00 Dose 2022-0 No Unknown 3-28 00:00: 00 Dose 2022-0 No Unknown 3-28 00:00: 00 Dose 2022-0 No Unknown 3-28 00:00: 00 Dose 2022-0 No Unknown 3-28 00:00: 00 Dose 2022-0 No Unknown 3-28 00:00: 00 Dose 2022-0 No Unknown 3-28 00:00: 00 Dose 2022-0 No Unknown 3-28 00:00: 00 Dose 2022-0 No Unknown 3-28 00:00: 00 Dose 2022-0 No Unknown 3-28 00:00: 00 Dose 2022-0 No Unknown 3-28 00:00: 00 Dose 2022-0 No Unknown 3-28 00:00: 00 Dose 2022-0 No Unknown 3-28 00:00: 00 Dose 2022-0 No Unknown 3-28 00:00: 00 Dose 2022-0 No Unknown 3-28 00:00: 00 Dose 2022-0 No Unknown 3-28 00:00: 00 Dose 2022-0 No Unknown 3-28 00:00: 00 Dose 2022-0 No Unknown 3-28 00:00: 00 Dose 2022-0 No Unknown 3-28 00:00: 00 Dose 2022-0 No Unknown 3-28 00:00: 00 Dose 2022-0 No Unknown 3-28 00:00: 00 Dose 2022-0 No Unknown 3-28 00:00: 00 Dose 2022-0 No Unknown 3-28 00:00: 00 Dose 2022-0 No Unknown 3-28 00:00: 00 Dose 2022-0 No Unknown 3-28 00:00: 00 Dose 2022-0 No Unknown 3-28 00:00: 00 Dose 2022-0 No Unknown 3-28 00:00: 00 Dose 2022-0 No Unknown 3-28 00:00: 00 Dose 2022-0 No Unknown 3-28 00:00: 00 Dose 2022-0 No Unknown 3-28 00:00: 00 Dose 2022-0 No Unknown 3-28 00:00: 00 Dose 2022-0 No Unknown 3-28 00:00: 00 Dose 2022-0 No Unknown 3-28 00:00: 00 Dose 2022-0 No Unknown 3-28 00:00: 00 Dose 2022-0 No Unknown 3-28 00:00: 00 Dose 2022-0 No Unknown 3-28 00:00: 00 Dose 2022-0 No Unknown 3-28 00:00: 00 Dose 2022-0 No Unknown 3-28 00:00: 00 Dose 2022-0 No Unknown 3-28 00:00: 00 Dose 2022-0 No Unknown 3-28 00:00: 00 Dose 2022-0 No Unknown 3-28 00:00: 00 Dose 2022-0 No Unknown 3-28 00:00: 00 Dose 2022-0 No Unknown 3-28 00:00: 00 Dose 2022-0 No Unknown 3-28 00:00: 00 Dose 2022-0 No Unknown 3-28 00:00: 00 Dose 2022-0 No Unknown 3-28 00:00: 00 Dose 2022-0 No Unknown 3-28 00:00: 00 Dose 2022-0 No Unknown 3-28 00:00: 00 Dose 2022-0 No Unknown 3-28 00:00: 00 Dose 2022-0 No Unknown 3-28 00:00: 00 Dose 2022-0 No Unknown 3-28 00:00: 00 Dose 2022-0 No Unknown 3-28 00:00: 00 Dose 2022-0 No Unknown 3-28 00:00: 00 Dose 2022-0 No Unknown 3-28 00:00: 00 Dose 2022-0 No Unknown 3-28 00:00: 00 Dose 2022-0 No Unknown 3-28 00:00: 00 Dose 2022-0 No Unknown 3-28 00:00: 00 Dose 2022-0 No Unknown 3-28 00:00: 00 Dose 2022-0 No Unknown 3-28 00:00: 00 Dose 2022-0 No Unknown 3-28 00:00: 00 Dose 2022-0 No Unknown 3-28 00:00: 00 Dose 2022-0 No Unknown 3-28 00:00: 00 Dose 2022-0 No Unknown 3-28 00:00: 00 Dose 2022-0 No Unknown 3-28 00:00: 00 Dose 2022-0 No Unknown 3-28 00:00: 00 Dose 2022-0 No Unknown 3-28 00:00: 00 Dose 2022-0 No Unknown 3-28 00:00: 00 Dose 2022-0 No Unknown 3-28 00:00: 00 Dose 2022-0 No Unknown 3-28 00:00: 00 Dose 2022-0 No Unknown 3-28 00:00: 00 Dose 2022-0 No Unknown 3-28 00:00: 00 Dose 2022-0 No Unknown 3-28 00:00: 00 Dose 2022-0 No Unknown 3-28 00:00: 00 Dose 2022-0 No Unknown 3-28 00:00: 00 Dose 2022-0 No Unknown 3-28 00:00: 00 Dose 2022-0 No Unknown 3-28 00:00: 00 Dose 2022-0 No Unknown 3-28 00:00: 00 Dose 2022-0 No Unknown 3-28 00:00: 00 Dose 2022-0 No Unknown 3-28 00:00: 00 Dose 2022-0 No Unknown 3-28 00:00: 00 Dose 2022-0 No Unknown 3-28 00:00: 00 Dose 2022-0 No Unknown 3-28 00:00: 00 Dose 2022-0 No Unknown 3-28 00:00: 00 Dose 2022-0 No Unknown 3-28 00:00: 00 Dose 2022-0 No Unknown 3-28 00:00: 00 Dose 2022-0 No Unknown 3-28 00:00: 00 Dose 2022-0 No Unknown 3-28 00:00: 00 Dose 2022-0 No Unknown 3-28 00:00: 00 Dose 2022-0 No Unknown 3-28 00:00: 00 Dose 2022-0 No Unknown 3-28 00:00: 00 Dose 2022-0 No Unknown 3-28 00:00: 00 Dose 2022-0 No Unknown 3-28 00:00: 00 Dose 2022-0 No Unknown 3-28 00:00: 00 Dose 2022-0 No Unknown 3-28 00:00: 00 Dose 2022-0 No Unknown 3-28 00:00: 00 Dose 2022-0 No Unknown 3-28 00:00: 00 Dose 2022-0 No Unknown 3-28 00:00: 00 Dose 2022-0 No Unknown 3-28 00:00: 00 Dose 2022-0 No Unknown 3-28 00:00: 00 Dose 2022-0 No Unknown 3-28 00:00: 00 Dose 2022-0 No Unknown 3-28 00:00: 00 Dose 2022-0 No Unknown 3-28 00:00: 00 Dose 2022-0 No Unknown 3-28 00:00: 00 Dose 2022-0 No Unknown 3-28 00:00: 00 Dose 2022-0 No Unknown 3-28 00:00: 00 Dose 2022-0 No Unknown 3-28 00:00: 00 Dose 2022-0 No Unknown 3-28 00:00: 00 Dose 2022-0 No Unknown 3-28 00:00: 00 Dose 2022-0 No Unknown 3-28 00:00: 00 Dose 2022-0 No Unknown 3-28 00:00: 00 Dose 2022-0 No Unknown 3-28 00:00: 00 Dose 2022-0 No Unknown 3-28 00:00: 00 Dose 2022-0 No Unknown 3-28 00:00: 00 Dose 2022-0 No Unknown 3-28 00:00: 00 Dose 2022-0 No Unknown 3-28 00:00: 00 Dose 2022-0 No Unknown 3-28 00:00: 00 Dose 2022-0 No Unknown 3-28 00:00: 00 Dose 2022-0 No Unknown 3-28 00:00: 00 Dose 2022-0 No Unknown 3-28 00:00: 00 Dose 2022-0 No Unknown 3-28 00:00: 00 Dose 2022-0 No Unknown 3-28 00:00: 00 Dose 2022-0 No Unknown 3-28 00:00: 00 Dose 2022-0 No Unknown 3-28 00:00: 00 Dose 2022-0 No Unknown 3-28 00:00: 00 Dose 2022-0 No Unknown 3-28 00:00: 00 Dose 2022-0 No Unknown 3-28 00:00: 00 Dose 2022-0 No Unknown 3-28 00:00: 00 Dose 2022-0 No Unknown 3-28 00:00: 00 Dose 2022-0 No Unknown 3-28 00:00: 00 Dose 2022-0 No Unknown 3-28 00:00: 00 Dose 2022-0 No Unknown 3-28 00:00: 00 Dose 2022-0 No Unknown 3-28 00:00: 00 Dose 2022-0 No Unknown 3-28 00:00: 00 Dose 2022-0 No Unknown 3-28 00:00: 00 Dose 2022-0 No Unknown 3-28 00:00: 00 Dose 2022-0 No Unknown 3-28 00:00: 00 Dose 2022-0 No Unknown 3-28 00:00: 00 Dose 2022-0 No Unknown 3-28 00:00: 00 Dose 2022-0 No Unknown 3-28 00:00: 00 Dose 2022-0 No Unknown 3-28 00:00: 00 Dose 2022-0 No Unknown 3-28 00:00: 00 Dose 2022-0 No Unknown 3-28 00:00: 00 Dose 2022-0 No Unknown 3-28 00:00: 00 Dose 2022-0 No Unknown 3-28 00:00: 00 Dose 2022-0 No Unknown 3-28 00:00: 00 Dose 2022-0 No Unknown 3-28 00:00: 00 Dose 2022-0 No Unknown 3-28 00:00: 00 Dose 2022-0 No Unknown 3-28 00:00: 00 Dose 2022-0 No Unknown 3-28 00:00: 00 Dose 2022-0 No Unknown 3-28 00:00: 00 Dose 2022-0 No Unknown 3-28 00:00: 00 Dose 2022-0 No Unknown 3-28 00:00: 00 Dose 2022-0 No Unknown 3-28 00:00: 00 Dose 2022-0 No Unknown 3-28 00:00: 00 Dose 2022-0 No Unknown 3-28 00:00: 00 Dose 2022-0 No Unknown 3-28 00:00: 00 Dose 2022-0 No Unknown 3-28 00:00: 00 Dose 2022-0 No Unknown 3-28 00:00: 00 Dose 2022-0 No Unknown 3-28 00:00: 00 Dose 2022-0 No Unknown 3-28 00:00: 00 Dose 2022-0 No Unknown 3-28 00:00: 00 Dose 2022-0 No Unknown 3-28 00:00: 00 Dose 2022-0 No Unknown 3-28 00:00: 00 Dose 2022-0 No Unknown 3-28 00:00: 00 Dose 2022-0 No Unknown 3-28 00:00: 00 Dose 2022-0 No Unknown 3-28 00:00: 00 Dose 2022-0 No Unknown 3-28 00:00: 00 Dose 2022-0 No Unknown 3-28 00:00: 00 Dose 2022-0 No Unknown 3-28 00:00: 00 Dose 2022-0 No Unknown 3-28 00:00: 00 Dose 2022-0 No Unknown 3-28 00:00: 00 Dose 2022-0 No Unknown 3-28 00:00: 00 Dose 2022-0 No Unknown 3-28 00:00: 00 Dose 2022-0 No Unknown 3-28 00:00: 00 Dose 2022-0 No Unknown 3-28 00:00: 00 Dose 2022-0 No Unknown 3-28 00:00: 00 Dose 2022-0 No Unknown 3-28 00:00: 00 Dose 2022-0 No Unknown 3-28 00:00: 00 Dose 2022-0 No Unknown 3-28 00:00: 00 Dose 2022-0 No Unknown 3-28 00:00: 00 Dose 2022-0 No Unknown 3-28 00:00: 00 Dose 2022-0 No Unknown 3-28 00:00: 00 Dose 2022-0 No Unknown 3-28 00:00: 00 Dose 2022-0 No Unknown 3-28 00:00: 00 Dose 2022-0 No Unknown 3-28 00:00: 00 Dose 2022-0 No Unknown 3-28 00:00: 00 Dose 2022-0 No Unknown 3-28 00:00: 00 Dose 2022-0 No Unknown 3-28 00:00: 00 Dose 2022-0 No Unknown 3-28 00:00: 00 Dose 2022-0 No Unknown 3-28 00:00: 00 Dose 2022-0 No Unknown 3-28 00:00: 00 Dose 2022-0 No Unknown 3-28 00:00: 00 Dose 2022-0 No Unknown 3-28 00:00: 00 Dose 2022-0 No Unknown 3-28 00:00: 00 Dose 2022-0 No Unknown 3-28 00:00: 00 Dose 2022-0 No Unknown 3-28 00:00: 00 Dose 2022-0 No Unknown 3-28 00:00: 00 Dose 2022-0 No Unknown 3-28 00:00: 00 Dose 2022-0 No Unknown 3-28 00:00: 00 Dose 2022-0 No Unknown 3-28 00:00: 00 Dose 2022-0 No Unknown 3-28 00:00: 00 Dose 2022-0 No Unknown 3-28 00:00: 00 Dose 2022-0 No Unknown 3-28 00:00: 00 Dose 2022-0 No Unknown 3-28 00:00: 00 Dose 2022-0 No Unknown 3-28 00:00: 00 Dose 2022-0 No Unknown 3-28 00:00: 00 Dose 2022-0 No Unknown 3-28 00:00: 00 Dose 2022-0 No Unknown 3-28 00:00: 00 Dose 2022-0 No Unknown 3-28 00:00: 00 Dose 2022-0 No Unknown 3-28 00:00: 00 Dose 2022-0 No Unknown 3-28 00:00: 00 Dose 2022-0 No Unknown 3-28 00:00: 00 Dose 2022-0 No Unknown 3-28 00:00: 00 Dose 2022-0 No Unknown 3-28 00:00: 00 Dose 2022-0 No Unknown 3-28 00:00: 00 Dose 2022-0 No Unknown 3-28 00:00: 00 Dose 2022-0 No Unknown 3-28 00:00: 00 Dose 2022-0 No Unknown 3-28 00:00: 00 Dose 2022-0 No Unknown 3-28 00:00: 00 Dose 2022-0 No Unknown 3-28 00:00: 00 Dose 2022-0 No Unknown 3-28 00:00: 00 Dose 2022-0 No Unknown 3-28 00:00: 00 Dose 2022-0 No Unknown 3-28 00:00: 00 Dose 2022-0 No Unknown 3-28 00:00: 00 Dose 2022-0 No Unknown 3-28 00:00: 00 Dose 2022-0 No Unknown 3-28 00:00: 00 Dose 2022-0 No Unknown 3-28 00:00: 00 Dose 2022-0 No Unknown 3-28 00:00: 00 Dose 2022-0 No Unknown 3-28 00:00: 00 Dose 2022-0 No Unknown 3-28 00:00: 00 Dose 2022-0 No Unknown 3-28 00:00: 00 Dose 2022-0 No Unknown 3-28 00:00: 00 Dose 2022-0 No Unknown 3-28 00:00: 00 Dose 2022-0 No Unknown 3-28 00:00: 00 Dose 2022-0 No Unknown 3-28 00:00: 00 Dose 2022-0 No Unknown 3-28 00:00: 00 Dose 2022-0 No Unknown 3-28 00:00: 00 Dose 2022-0 No Unknown 3-28 00:00: 00 Dose 2022-0 No Unknown 3-28 00:00: 00 Dose 2022-0 No Unknown 3-28 00:00: 00 Dose 2022-0 No Unknown 3-28 00:00: 00 Dose 2022-0 No Unknown 3-28 00:00: 00 Dose 2022-0 No Unknown 3-28 00:00: 00 Dose 2022-0 No Unknown 3-28 00:00: 00 Dose 2022-0 No Unknown 3-28 00:00: 00 Dose 2022-0 No Unknown 3-28 00:00: 00 Dose 2022-0 No Unknown 3-28 00:00: 00 Dose 2022-0 No Unknown 3-28 00:00: 00 Dose 2022-0 No Unknown 3-28 00:00: 00 Dose 2022-0 No Unknown 3-28 00:00: 00 Dose 2022-0 No Unknown 3-28 00:00: 00 Dose 2022-0 No Unknown 3-28 00:00: 00 Dose 2022-0 No Unknown 3-28 00:00: 00 Dose 2022-0 No Unknown 3-28 00:00: 00 Dose 2022-0 No Unknown 3-28 00:00: 00 Dose 2022-0 No Unknown 3-28 00:00: 00 Dose 2022-0 No Unknown 3-28 00:00: 00 Dose 2022-0 No Unknown 3-28 00:00: 00 Dose 2022-0 No Unknown 3-28 00:00: 00 Dose 2022-0 No Unknown 3-28 00:00: 00 Dose 2022-0 No Unknown 3-28 00:00: 00 Dose 2022-0 No Unknown 3-28 00:00: 00 Dose 2022-0 No Unknown 3-28 00:00: 00 Dose 2022-0 No Unknown 3-28 00:00: 00 Dose 2022-0 No Unknown 3-28 00:00: 00 Dose 2022-0 No Unknown 3-28 00:00: 00 Dose 2022-0 No Unknown 3-28 00:00: 00 Dose 2022-0 No Unknown 3-28 00:00: 00 Dose 2022-0 No Unknown 3-28 00:00: 00 Dose 2022-0 No Unknown 3-28 00:00: 00 Dose 2022-0 No Unknown 3-28 00:00: 00 Dose 2022-0 No Unknown 3-28 00:00: 00 Dose 2022-0 No Unknown 3-28 00:00: 00 Dose 2022-0 No Unknown 3-28 00:00: 00 Dose 2022-0 No Unknown 3-28 00:00: 00 Dose 2022-0 No Unknown 3-28 00:00: 00 Dose 2022-0 No Unknown 3-28 00:00: 00 Dose 2022-0 No Unknown 3-28 00:00: 00 Dose 2022-0 No Unknown 3-28 00:00: 00 Dose 2022-0 No Unknown 3-28 00:00: 00 Dose 2022-0 No Unknown 3-28 00:00: 00 Dose 2022-0 No Unknown 3-28 00:00: 00 Dose 2022-0 No Unknown 3-28 00:00: 00 Dose 2022-0 No Unknown 3-28 00:00: 00 Dose 2022-0 No Unknown 3-28 00:00: 00 Dose 2022-0 No Unknown 3-28 00:00: 00 Dose 2022-0 No Unknown 3-28 00:00: 00 Dose 2022-0 No Unknown 3-28 00:00: 00 Dose 2022-0 No Unknown 3-28 00:00: 00 Dose 2022-0 No Unknown 3-28 00:00: 00 Dose 2022-0 No Unknown 3-28 00:00: 00 Dose 2022-0 No Unknown 3-28 00:00: 00 Dose 2022-0 No Unknown 3-28 00:00: 00 Dose 2022-0 No Unknown 3-28 00:00: 00 Dose 2022-0 No Unknown 3-28 00:00: 00 Dose 2022-0 No Unknown 3-28 00:00: 00 Dose 2022-0 No Unknown 3-28 00:00: 00 Dose 2022-0 No Unknown 3-28 00:00: 00 Dose 2022-0 No Unknown 3-28 00:00: 00 Dose 2022-0 No Unknown 3-28 00:00: 00 Dose 2022-0 No Unknown 3-28 00:00: 00 Dose 2022-0 No Unknown 3-28 00:00: 00 Dose 2022-0 No Unknown 3-28 00:00: 00 Dose 2022-0 No Unknown 3-28 00:00: 00 Dose 2022-0 No Unknown 3-28 00:00: 00 Dose 2022-0 No Unknown 3-28 00:00: 00 Dose 2022-0 No Unknown 3-28 00:00: 00 Dose 2022-0 No Unknown 3-28 00:00: 00 Dose 2022-0 No Unknown 3-28 00:00: 00 Dose 2022-0 No Unknown 3-28 00:00: 00 Dose 2022-0 No Unknown 3-28 00:00: 00 Dose 2022-0 No Unknown 3-28 00:00: 00 Dose 2022-0 No Unknown 3-28 00:00: 00 Dose 2022-0 No Unknown 3-28 00:00: 00 Dose 2022-0 No Unknown 3-28 00:00: 00 Dose 2022-0 No Unknown 3-28 00:00: 00 Dose 2022-0 No Unknown 3-28 00:00: 00 Dose 2022-0 No Unknown 3-28 00:00: 00 Dose 2022-0 No Unknown 3-28 00:00: 00 Dose 2022-0 No Unknown 3-28 00:00: 00 Dose 2022-0 No Unknown 3-28 00:00: 00 Dose 2022-0 No Unknown 3-28 00:00: 00 Dose 2022-0 No Unknown 3-28 00:00: 00 Dose 2022-0 No Unknown 3-28 00:00: 00 Dose 2022-0 No Unknown 3-28 00:00: 00 Dose 2022-0 No Unknown 3-28 00:00: 00 Dose 2022-0 No Unknown 3-28 00:00: 00 Dose 2022-0 No Unknown 3-28 00:00: 00 Dose 2022-0 No Unknown 3-28 00:00: 00 Dose 2022-0 No Unknown 3-28 00:00: 00 Dose 2022-0 No Unknown 3-28 00:00: 00 Dose 2022-0 No Unknown 3-28 00:00: 00 Dose 2022-0 No Unknown 3-28 00:00: 00 Dose 2022-0 No Unknown 3-28 00:00: 00 Dose 2022-0 No Unknown 3-28 00:00: 00 Dose 2022-0 No Unknown 3-28 00:00: 00 Dose 2022-0 No Unknown 3-28 00:00: 00 Dose 2022-0 No Unknown 3-28 00:00: 00 Dose 2022-0 No Unknown 3-28 00:00: 00 Dose 2022-0 No Unknown 3-28 00:00: 00 Dose 2022-0 No Unknown 3-28 00:00: 00 Dose 2022-0 No Unknown 3-28 00:00: 00 Dose 2022-0 No Unknown 3-28 00:00: 00 Dose 2022-0 No Unknown 3-28 00:00: 00 Dose 2022-0 No Unknown 3-28 00:00: 00 Dose 2022-0 No Unknown 3-28 00:00: 00 Dose 2022-0 No Unknown 3-28 00:00: 00 Dose 2022-0 No Unknown 3-28 00:00: 00 Dose 2022-0 No Unknown 3-28 00:00: 00 Dose 2022-0 No Unknown 3-28 00:00: 00 Dose 2022-0 No Unknown 3-28 00:00: 00 Dose 2022-0 No Unknown 3-28 00:00: 00 Dose 2022-0 No Unknown 3-28 00:00: 00 Dose 2022-0 No Unknown 3-28 00:00: 00 Dose 2022-0 No Unknown 3-28 00:00: 00 Dose 2022-0 No Unknown 3-28 00:00: 00 Dose 2022-0 No Unknown 3-28 00:00: 00 Dose 2022-0 No Unknown 3-28 00:00: 00 Dose 2022-0 No Unknown 3-28 00:00: 00 Dose 2022-0 No Unknown 3-28 00:00: 00 Dose 2022-0 No Unknown 3-28 00:00: 00 Dose 2022-0 No Unknown 3-28 00:00: 00 Dose 2022-0 No Unknown 3-28 00:00: 00 Dose 2022-0 No Unknown 3-28 00:00: 00 Dose 2022-0 No Unknown 3-28 00:00: 00 Dose 2022-0 No Unknown 3-28 00:00: 00 Dose 2022-0 No Unknown 3-28 00:00: 00 Dose 2022-0 No Unknown 3-28 00:00: 00 Dose 2022-0 No Unknown 3-28 00:00: 00 Dose 2022-0 No Unknown 3-28 00:00: 00 Dose 2022-0 No Unknown 3-28 00:00: 00 Dose 2022-0 No Unknown 3-28 00:00: 00 Dose 2022-0 No Unknown 3-28 00:00: 00 Dose 2022-0 No Unknown 3-28 00:00: 00 Dose 2022-0 No Unknown 3-28 00:00: 00 Dose 2022-0 No Unknown 3-28 00:00: 00 Dose 2022-0 No Unknown 3-28 00:00: 00 Dose 2022-0 No Unknown 3-28 00:00: 00 Dose 2022-0 No Unknown 3-28 00:00: 00 Dose 2022-0 No Unknown 3-28 00:00: 00 Dose 2022-0 No Unknown 3-28 00:00: 00 Dose 2022-0 No Unknown 3-28 00:00: 00 Dose 2022-0 No Unknown 3-28 00:00: 00 Dose 2022-0 No Unknown 3-28 00:00: 00 Dose 2022-0 No Unknown 3-28 00:00: 00 Dose 2022-0 No Unknown 3-28 00:00: 00 Dose 2022-0 No Unknown 3-28 00:00: 00 Dose 2022-0 No Unknown 3-28 00:00: 00 Dose 2022-0 No Unknown 3-28 00:00: 00 Dose 2022-0 No Unknown 3-28 00:00: 00 Dose 2022-0 No Unknown 3-28 00:00: 00 Dose 2022-0 No Unknown 3-28 00:00: 00 Dose 2022-0 No Unknown 3-28 00:00: 00 Dose 2022-0 No Unknown 3-28 00:00: 00 Dose 2022-0 No Unknown 3-28 00:00: 00 Dose 2022-0 No Unknown 3-28 00:00: 00 Dose 2022-0 No Unknown 3-28 00:00: 00 Dose 2022-0 No Unknown 3-28 00:00: 00 Dose 2022-0 No Unknown 3-28 00:00: 00 Dose 2022-0 No Unknown 3-28 00:00: 00 Dose 2022-0 No Unknown 3-28 00:00: 00 Dose 2022-0 No Unknown 3-28 00:00: 00 Dose 2022-0 No Unknown 3-28 00:00: 00 Dose 2022-0 No Unknown 3-28 00:00: 00 Dose 2022-0 No Unknown 3-28 00:00: 00 Dose 2022-0 No Unknown 3-28 00:00: 00 Dose 2022-0 No Unknown 3-28 00:00: 00 Dose 2022-0 No Unknown 3-28 00:00: 00 Dose 2022-0 No Unknown 3-28 00:00: 00 Dose 2022-0 No Unknown 3-28 00:00: 00 Dose 2022-0 No Unknown 3-28 00:00: 00 Dose 2022-0 No Unknown 3-28 00:00: 00 Dose 2022-0 No Unknown 3-28 00:00: 00 Dose 2022-0 No Unknown 3-28 00:00: 00 Dose 2022-0 No Unknown 3-28 00:00: 00 Dose 2022-0 No Unknown 3-28 00:00: 00 Dose 2022-0 No Unknown 3-28 00:00: 00 Dose 2022-0 No Unknown 3-28 00:00: 00 Dose 2022-0 No Unknown 3-28 00:00: 00 Dose 2022-0 No Unknown 3-28 00:00: 00 Dose 2022-0 No Unknown 3-28 00:00: 00 Dose 2022-0 No Unknown 3-28 00:00: 00 Dose 2022-0 No Unknown 3-28 00:00: 00 Dose 2022-0 No Unknown 3-28 00:00: 00 Dose 2022-0 No Unknown 3-28 00:00: 00 Dose 2022-0 No Unknown 3-28 00:00: 00 Dose 2022-0 No Unknown 3-28 00:00: 00 Dose 2022-0 No Unknown 3-28 00:00: 00 Dose 2022-0 No Unknown 3-28 00:00: 00 Dose 2022-0 No Unknown 3-28 00:00: 00 Dose 2022-0 No Unknown 3-28 00:00: 00 Dose 2022-0 No Unknown 3-28 00:00: 00 Dose 2022-0 No Unknown 3-28 00:00: 00 Dose 2022-0 No Unknown 3-28 00:00: 00 Dose 2022-0 No Unknown 3-28 00:00: 00 Dose 2022-0 No Unknown 3-28 00:00: 00 Dose 2022-0 No Unknown 3-28 00:00: 00 Dose 2022-0 No Unknown 3-28 00:00: 00 Dose 2022-0 No Unknown 3-28 00:00: 00 Dose 2022-0 No Unknown 3-28 00:00: 00 Dose 2022-0 No Unknown 3-28 00:00: 00 Dose 2022-0 No Unknown 3-28 00:00: 00 Dose 2022-0 No Unknown 3-28 00:00: 00 Dose 2022-0 No Unknown 3-28 00:00: 00 Dose 2022-0 No Unknown 3-28 00:00: 00 Dose 2022-0 No Unknown 3-28 00:00: 00 Dose 2022-0 No Unknown 3-28 00:00: 00 Dose 2022-0 No Unknown 3-28 00:00: 00 Dose 2022-0 No Unknown 3-28 00:00: 00 Dose 2022-0 No Unknown 3-28 00:00: 00 Dose 2022-0 No Unknown 3-28 00:00: 00 Dose 2022-0 No Unknown 3-28 00:00: 00 Dose 2022-0 No Unknown 3-28 00:00: 00 Dose 2022-0 No Unknown 3-28 00:00: 00 Dose 2022-0 No Unknown 3-28 00:00: 00 Dose 2022-0 No Unknown 3-28 00:00: 00 Dose 2022-0 No Unknown 3-28 00:00: 00 Dose 2022-0 No Unknown 3-28 00:00: 00 Dose 2022-0 No Unknown 3-28 00:00: 00 Dose 2022-0 No Unknown 3-28 00:00: 00 Dose 2022-0 No Unknown 3-28 00:00: 00 Dose 2022-0 No Unknown 3-28 00:00: 00 Dose 2022-0 No Unknown 3-28 00:00: 00 Dose 2022-0 No Unknown 3-28 00:00: 00 Dose 2022-0 No Unknown 3-28 00:00: 00 Dose 2022-0 No Unknown 3-28 00:00: 00 Dose 2022-0 No Unknown 3-28 00:00: 00 Dose 2022-0 No Unknown 3-28 00:00: 00 Dose 2022-0 No Unknown 3-28 00:00: 00 Dose 2022-0 No Unknown 3-28 00:00: 00 Dose 2022-0 No Unknown 3-28 00:00: 00 Dose 2022-0 No Unknown 3-28 00:00: 00 Dose 2022-0 No Unknown 3-28 00:00: 00 Dose 2022-0 No Unknown 3-28 00:00: 00 Dose 2022-0 No Unknown 3-28 00:00: 00 Dose 2022-0 No Unknown 3-28 00:00: 00 Dose 2022-0 No Unknown 3-28 00:00: 00 Dose 2022-0 No Unknown 3-28 00:00: 00 Dose 2022-0 No Unknown 3-28 00:00: 00 Dose 2022-0 No Unknown 3-28 00:00: 00 Dose 2022-0 No Unknown 3-28 00:00: 00 Dose 2022-0 No Unknown 3-28 00:00: 00 Dose 2022-0 No Unknown 3-28 00:00: 00 Dose 2022-0 No Unknown 3-28 00:00: 00 Dose 2022-0 No Unknown 3-28 00:00: 00 Dose 2022-0 No Unknown 3-28 00:00: 00 Dose 2022-0 No Unknown 3-28 00:00: 00 Dose 2022-0 No Unknown 3-28 00:00: 00 Dose 2022-0 No Unknown 3-28 00:00: 00 Dose 2022-0 No Unknown 3-28 00:00: 00 Dose 2022-0 No Unknown 3-28 00:00: 00 Dose 2022-0 No Unknown 3-28 00:00: 00 Dose 2022-0 No Unknown 3-28 00:00: 00 Dose 2022-0 No Unknown 3-28 00:00: 00 Dose 2022-0 No Unknown 3-28 00:00: 00 Dose 2022-0 No Unknown 3-28 00:00: 00 Dose 2022-0 No Unknown 3-28 00:00: 00 Dose 2022-0 No Unknown 3-28 00:00: 00 Dose 2022-0 No Unknown 3-28 00:00: 00 Dose 2022-0 No Unknown 3-28 00:00: 00 Dose 2022-0 No Unknown 3-28 00:00: 00 Dose 2022-0 No Unknown 3-28 00:00: 00 Dose 2022-0 No Unknown 3-28 00:00: 00 Dose 2022-0 No Unknown 3-28 00:00: 00 Dose 2022-0 No Unknown 3-28 00:00: 00 Dose 2022-0 No Unknown 3-28 00:00: 00 Dose 2022-0 No Unknown 3-28 00:00: 00 Dose 2022-0 No Unknown 3-28 00:00: 00 Dose 2022-0 No Unknown 3-28 00:00: 00 Dose 2022-0 No Unknown 3-28 00:00: 00 Dose 2022-0 No Unknown 3-28 00:00: 00 Dose 2022-0 No Unknown 3-28 00:00: 00 Dose 2022-0 No Unknown 3-28 00:00: 00 Dose 2022-0 No Unknown 3-28 00:00: 00 Dose 2022-0 No Unknown 3-28 00:00: 00 Dose 2022-0 No Unknown 3-28 00:00: 00 Dose 2022-0 No Unknown 3-28 00:00: 00 Dose 2022-0 No Unknown 3-28 00:00: 00 Dose 2022-0 No Unknown 3-28 00:00: 00 Dose 2022-0 No Unknown 3-28 00:00: 00 Dose 2022-0 No Unknown 3-28 00:00: 00 Dose 2022-0 No Unknown 3-28 00:00: 00 Dose 2022-0 No Unknown 3-28 00:00: 00 Dose 2022-0 No Unknown 3-28 00:00: 00 Dose 2022-0 No Unknown 3-28 00:00: 00 Dose 2022-0 No Unknown 3-28 00:00: 00 Dose 2022-0 No Unknown 3-28 00:00: 00 Dose 2022-0 No Unknown 3-28 00:00: 00 Dose 2022-0 No Unknown 3-28 00:00: 00 Dose 2022-0 No Unknown 3-28 00:00: 00 Dose 2022-0 No Unknown 3-28 00:00: 00 Dose 2022-0 No Unknown 3-28 00:00: 00 Dose 2022-0 No Unknown 3-28 00:00: 00 Dose 2022-0 No Unknown 3-28 00:00: 00 Dose 2022-0 No Unknown 3-28 00:00: 00 Dose 2022-0 No Unknown 3-28 00:00: 00 Dose 2022-0 No Unknown 3-28 00:00: 00 Dose 2022-0 No Unknown 3-28 00:00: 00 Dose 2022-0 No Unknown 3-28 00:00: 00 Dose 2022-0 No Unknown 3-28 00:00: 00 Dose 2022-0 No Unknown 3-28 00:00: 00 Dose 2022-0 No Unknown 3-28 00:00: 00 Dose 2022-0 No Unknown 3-28 00:00: 00 Dose 2022-0 No Unknown 3-28 00:00: 00 Dose 2022-0 No Unknown 3-28 00:00: 00 Dose 2022-0 No Unknown 3-28 00:00: 00 Dose 2022-0 No Unknown 3-28 00:00: 00 Dose 2022-0 No Unknown 3-28 00:00: 00 Dose 2022-0 No Unknown 3-28 00:00: 00 Dose 2022-0 No Unknown 3-28 00:00: 00 Dose 2022-0 No Unknown 3-28 00:00: 00 Dose 2022-0 No Unknown 3-28 00:00: 00 Dose 2022-0 No Unknown 3-28 00:00: 00 Dose 2022-0 No Unknown 3-28 00:00: 00 Dose 2022-0 No Unknown 3-28 00:00: 00 Dose 2022-0 No Unknown 3-28 00:00: 00 Dose 2022-0 No Unknown 3-28 00:00: 00 Dose 2022-0 No Unknown 3-28 00:00: 00 Dose 2022-0 No Unknown 3-28 00:00: 00 Dose 2022-0 No Unknown 3-28 00:00: 00 Dose 2022-0 No Unknown 3-28 00:00: 00 Dose 2022-0 No Unknown 3-28 00:00: 00 Dose 2022-0 No Unknown 3-28 00:00: 00 Dose 2022-0 No Unknown 3-28 00:00: 00 Dose 2022-0 No Unknown 3-28 00:00: 00 Dose 2022-0 No Unknown 3-28 00:00: 00 Dose 2022-0 No Unknown 3-28 00:00: 00 Dose 2022-0 No Unknown 3-28 00:00: 00 Dose 2022-0 No Unknown 3-28 00:00: 00 Dose 2022-0 No Unknown 3-28 00:00: 00 Dose 2022-0 No Unknown 3-28 00:00: 00 Dose 2022-0 No Unknown 3-28 00:00: 00 Dose 2022-0 No Unknown 3-28 00:00: 00 Dose 2022-0 No Unknown 3-28 00:00: 00 Dose 2022-0 No Unknown 3-28 00:00: 00 Dose 2022-0 No Unknown 3-28 00:00: 00 Dose 2022-0 No Unknown 3-28 00:00: 00 Dose 2022-0 No Unknown 3-28 00:00: 00 Dose 2022-0 No Unknown 3-28 00:00: 00 Dose 2022-0 No Unknown 3-28 00:00: 00 Dose 2022-0 No Unknown 3-28 00:00: 00 Dose 2022-0 No Unknown 3-28 00:00: 00 Dose 2022-0 No Unknown 3-28 00:00: 00 Dose 2022-0 No Unknown 3-28 00:00: 00 Dose 2022-0 No Unknown 3-28 00:00: 00 Dose 2022-0 No Unknown 3-28 00:00: 00 Dose 2022-0 No Unknown 3-28 00:00: 00 Dose 2022-0 No Unknown 3-28 00:00: 00 Dose 2022-0 No Unknown 3-28 00:00: 00 Dose 2022-0 No Unknown 3-28 00:00: 00 Dose 2022-0 No Unknown 3-28 00:00: 00 Dose 2022-0 No Unknown 3-28 00:00: 00 Dose 2022-0 No Unknown 3-28 00:00: 00 Dose 2022-0 No Unknown 3-28 00:00: 00 Dose 2022-0 No Unknown 3-28 00:00: 00 Dose 2022-0 No Unknown 3-28 00:00: 00 Dose 2022-0 No Unknown 3-28 00:00: 00 Dose 2022-0 No Unknown 3-28 00:00: 00 Dose 2022-0 No Unknown 3-28 00:00: 00 Dose 2022-0 No Unknown 3-28 00:00: 00 Dose 2022-0 No Unknown 3-28 00:00: 00 Dose 2022-0 No Unknown 3-28 00:00: 00 Dose 2022-0 No Unknown 3-28 00:00: 00 Dose 2022-0 No Unknown 3-28 00:00: 00 Dose 2022-0 No Unknown 3-28 00:00: 00 Dose 2022-0 No Unknown 3-28 00:00: 00 Dose 2022-0 No Unknown 3-28 00:00: 00 Dose 2022-0 No Unknown 3-28 00:00: 00 Dose 2022-0 No Unknown 3-28 00:00: 00 Dose 2022-0 No Unknown 3-28 00:00: 00 Dose 2022-0 No Unknown 3-28 00:00: 00 Dose 2022-0 No Unknown 3-28 00:00: 00 Dose 2022-0 No Unknown 3-28 00:00: 00 Dose 2022-0 No Unknown 3-28 00:00: 00 Dose 2022-0 No Unknown 3-28 00:00: 00 Dose 2022-0 No Unknown 3-28 00:00: 00 Dose 2022-0 No Unknown 3-28 00:00: 00 Dose 2022-0 No Unknown 3-28 00:00: 00 Dose 2022-0 No Unknown 3-28 00:00: 00 Dose 2022-0 No Unknown 3-28 00:00: 00 Dose 2022-0 No Unknown 3-28 00:00: 00 Dose 2022-0 No Unknown 3-28 00:00: 00 Dose 2022-0 No Unknown 3-28 00:00: 00 Dose 2022-0 No Unknown 3-28 00:00: 00 Dose 2022-0 No Unknown 3-28 00:00: 00 Dose 2022-0 No Unknown 3-28 00:00: 00 Dose 2022-0 No Unknown 3-28 00:00: 00 Dose 2022-0 No Unknown 3-28 00:00: 00 Dose 2022-0 No Unknown 3-28 00:00: 00 Dose 2022-0 No Unknown 3-28 00:00: 00 Dose 2022-0 No Unknown 3-28 00:00: 00 Dose 2022-0 No Unknown 3-28 00:00: 00 Dose 2022-0 No Unknown 3-28 00:00: 00 Dose 2022-0 No Unknown 3-28 00:00: 00 Dose 2022-0 No Unknown 3-28 00:00: 00 Dose 2022-0 No Unknown 3-28 00:00: 00 Dose 2022-0 No Unknown 3-28 00:00: 00 Dose 2022-0 No Unknown 3-28 00:00: 00 Dose 2022-0 No Unknown 3-28 00:00: 00 Dose 2022-0 No Unknown 3-28 00:00: 00 Dose 2022-0 No Unknown 3-28 00:00: 00 Dose 2022-0 No Unknown 3-28 00:00: 00 Dose 2022-0 No Unknown 3-28 00:00: 00 Dose 2022-0 No Unknown 3-28 00:00: 00 Dose 2022-0 No Unknown 3-28 00:00: 00 Dose 2022-0 No Unknown 3-28 00:00: 00 Dose 2022-0 No Unknown 3-28 00:00: 00 Dose 2022-0 No Unknown 3-28 00:00: 00 Dose 2022-0 No Unknown 3-28 00:00: 00 Dose 2022-0 No Unknown 3-28 00:00: 00 Dose 2022-0 No Unknown 3-28 00:00: 00 Dose 2022-0 No Unknown 3-28 00:00: 00 Dose 2022-0 No Unknown 3-28 00:00: 00 Dose 2022-0 No Unknown 3-28 00:00: 00 Dose 2022-0 No Unknown 3-28 00:00: 00 Dose 2022-0 No Unknown 3-28 00:00: 00 Dose 2022-0 No Unknown 3-28 00:00: 00 Dose 2022-0 No Unknown 3-28 00:00: 00 Dose 2022-0 No Unknown 3-28 00:00: 00 Dose 2022-0 No Unknown 3-28 00:00: 00 Dose 2022-0 No Unknown 3-28 00:00: 00 Dose 2022-0 No Unknown 3-28 00:00: 00 Dose 2022-0 No Unknown 3-28 00:00: 00 Dose 2022-0 No Unknown 3-28 00:00: 00 Dose 2022-0 No Unknown 3-28 00:00: 00 Dose 2022-0 No Unknown 3-28 00:00: 00 Dose 2022-0 No Unknown 3-28 00:00: 00 Dose 2022-0 No Unknown 3-28 00:00: 00 Dose 2022-0 No Unknown 3-28 00:00: 00 Dose 2022-0 No Unknown 3-28 00:00: 00 Dose 2022-0 No Unknown 3-28 00:00: 00 Dose 2022-0 No Unknown 3-28 00:00: 00 Dose 2022-0 No Unknown 3-28 00:00: 00 Dose 2022-0 No Unknown 3-28 00:00: 00 Dose 2022-0 No Unknown 3-28 00:00: 00 Dose 2022-0 No Unknown 3-28 00:00: 00 Dose 2022-0 No Unknown 3-28 00:00: 00 Dose 2022-0 No Unknown 3-28 00:00: 00 Dose 2022-0 No Unknown 3-28 00:00: 00 Dose 2022-0 No Unknown 3-28 00:00: 00 Dose 2022-0 No Unknown 3-28 00:00: 00 Dose 2022-0 No Unknown 3-28 00:00: 00 Dose 2022-0 No Unknown 3-28 00:00: 00 Dose 2022-0 No Unknown 3-28 00:00: 00 Dose 2022-0 No Unknown 3-28 00:00: 00 Dose 2022-0 No Unknown 3-28 00:00: 00 Dose 2022-0 No Unknown 3-28 00:00: 00 Dose 2022-0 No Unknown 3-28 00:00: 00 Dose 2022-0 No Unknown 3-28 00:00: 00 Dose 2022-0 No Unknown 3-28 00:00: 00 Dose 2022-0 No Unknown 3-28 00:00: 00 Dose 2022-0 No Unknown 3-28 00:00: 00 Dose 2022-0 No Unknown 3-28 00:00: 00 Dose 2022-0 No Unknown 3-28 00:00: 00 Dose 2022-0 No Unknown 3-28 00:00: 00 Dose 2022-0 No Unknown 3-28 00:00: 00 Dose 2022-0 No Unknown 3-28 00:00: 00 Dose 2022-0 No Unknown 3-28 00:00: 00 Dose 2022-0 No Unknown 3-28 00:00: 00 Dose 2022-0 No Unknown 3-28 00:00: 00 Dose 2022-0 No Unknown 3-28 00:00: 00 Dose 2022-0 No Unknown 3-28 00:00: 00 Dose 2022-0 No Unknown 3-28 00:00: 00 Dose 2022-0 No Unknown 3-28 00:00: 00 Dose 2022-0 No Unknown 3-28 00:00: 00 Dose 2022-0 No Unknown 3-28 00:00: 00 Dose 2022-0 No Unknown 3-28 00:00: 00 Dose 2022-0 No Unknown 3-28 00:00: 00 Dose 2022-0 No Unknown 3-28 00:00: 00 Dose 2022-0 No Unknown 3-28 00:00: 00 Dose 2022-0 No Unknown 3-28 00:00: 00 Dose 2022-0 No Unknown 3-28 00:00: 00 Dose 2022-0 No Unknown 3-28 00:00: 00 Dose 2022-0 No Unknown 3-28 00:00: 00 Dose 2022-0 No Unknown 3-28 00:00: 00 Dose 2022-0 No Unknown 3-28 00:00: 00 Dose 2022-0 No Unknown 3-28 00:00: 00 Dose 2022-0 No Unknown 3-28 00:00: 00 Dose 2022-0 No Unknown 3-28 00:00: 00 Dose 2022-0 No Unknown 3-28 00:00: 00 Dose 2022-0 No Unknown 3-28 00:00: 00 Dose 2022-0 No Unknown 3-28 00:00: 00 Dose 2022-0 No Unknown 3-28 00:00: 00 Dose 2022-0 No Unknown 3-28 00:00: 00 Dose 2022-0 No Unknown 3-28 00:00: 00 Dose 2022-0 No Unknown 3-28 00:00: 00 Dose 2022-0 No Unknown 3-28 00:00: 00 Dose 2022-0 No Unknown 3-28 00:00: 00 Dose 2022-0 No Unknown 3-28 00:00: 00 Dose 2022-0 No Unknown 3-28 00:00: 00 Dose 2022-0 No Unknown 3-28 00:00: 00 Dose 2022-0 No Unknown 3-28 00:00: 00 Dose 2022-0 No Unknown 3-28 00:00: 00 Dose 2022-0 No Unknown 3-28 00:00: 00 Dose 2022-0 No Unknown 3-28 00:00: 00 Dose 2022-0 No Unknown 3-28 00:00: 00 Dose 2022-0 No Unknown 3-28 00:00: 00 Dose 2022-0 No Unknown 3-28 00:00: 00 Dose 2022-0 No Unknown 3-28 00:00: 00 Dose 2022-0 No Unknown 3-28 00:00: 00 Dose 2022-0 No Unknown 3-28 00:00: 00 Dose 2022-0 No Unknown 3-28 00:00: 00 Dose 2022-0 No Unknown 3-28 00:00: 00 Dose 2022-0 No Unknown 3-28 00:00: 00 Dose 2022-0 No Unknown 3-28 00:00: 00 Dose 2022-0 No Unknown 3-28 00:00: 00 Dose 2022-0 No Unknown 3-28 00:00: 00 Dose 2022-0 No Unknown 3-28 00:00: 00 Dose 2022-0 No Unknown 3-28 00:00: 00 Dose 2022-0 No Unknown 3-28 00:00: 00 Dose 2022-0 No Unknown 3-28 00:00: 00 Dose 2022-0 No Unknown 3-28 00:00: 00 Dose 2022-0 No Unknown 3-28 00:00: 00 Dose 2022-0 No Unknown 3-28 00:00: 00 Dose 2022-0 No Unknown 3-28 00:00: 00 Dose 2022-0 No Unknown 3-28 00:00: 00 Dose 2022-0 No Unknown 3-28 00:00: 00 Dose 2022-0 No Unknown 3-28 00:00: 00 Dose 2022-0 No Unknown 3-28 00:00: 00 Dose 2022-0 No Unknown 3-28 00:00: 00 Dose 2022-0 No Unknown 3-28 00:00: 00 Dose 2022-0 No Unknown 3-28 00:00: 00 Dose 2022-0 No Unknown 3-28 00:00: 00 Dose 2022-0 No Unknown 3-28 00:00: 00 Dose 2022-0 No Unknown 3-28 00:00: 00 Dose 2022-0 No Unknown 3-28 00:00: 00 Dose 2022-0 No Unknown 3-28 00:00: 00 Dose 2022-0 No Unknown 3-28 00:00: 00 Dose 2022-0 No Unknown 3-28 00:00: 00 Dose 2022-0 No Unknown 3-28 00:00: 00 Dose 2022-0 No Unknown 3-28 00:00: 00 Dose 2022-0 No Unknown 3-28 00:00: 00 Dose 2022-0 No Unknown 3-28 00:00: 00 Dose 2022-0 No Unknown 3-28 00:00: 00 Dose 2022-0 No Unknown 3-28 00:00: 00 Dose 2022-0 No Unknown 3-28 00:00: 00 Dose 2022-0 No Unknown 3-28 00:00: 00 Dose 2022-0 No Unknown 3-28 00:00: 00 Dose 2022-0 No Unknown 3-28 00:00: 00 Dose 2022-0 No Unknown 3-28 00:00: 00 Dose 2022-0 No Unknown 3-28 00:00: 00 Dose 2022-0 No Unknown 3-28 00:00: 00 Dose 2022-0 No Unknown 3-28 00:00: 00 Dose 2022-0 No Unknown 3-28 00:00: 00 Dose 2022-0 No Unknown 3-28 00:00: 00 Dose 2022-0 No Unknown 3-28 00:00: 00 Dose 2022-0 No Unknown 3-28 00:00: 00 Dose 2022-0 No Unknown 3-28 00:00: 00 Dose 2022-0 No Unknown 3-28 00:00: 00 Dose 2022-0 No Unknown 3-28 00:00: 00 Dose 2022-0 No Unknown 3-28 00:00: 00 Dose 2022-0 No Unknown 3-28 00:00: 00 Dose 2022-0 No Unknown 3-28 00:00: 00 Dose 2022-0 No Unknown 3-28 00:00: 00 Dose 2022-0 No Unknown 3-28 00:00: 00 Dose 2022-0 No Unknown 3-28 00:00: 00 Dose 2022-0 No Unknown 3-28 00:00: 00 Dose 2022-0 No Unknown 3-28 00:00: 00 Dose 2022-0 No Unknown 3-28 00:00: 00 Dose 2022-0 No Unknown 3-28 00:00: 00 Dose 2022-0 No Unknown 3-28 00:00: 00 Dose 2022-0 No Unknown 3-28 00:00: 00 Dose 2022-0 No Unknown 3-28 00:00: 00 Dose 2022-0 No Unknown 3-28 00:00: 00 Dose 2022-0 No Unknown 3-28 00:00: 00 Dose 2022-0 No Unknown 3-28 00:00: 00 Dose 2022-0 No Unknown 3-28 00:00: 00 Dose 2022-0 No Unknown 3-28 00:00: 00 Dose 2022-0 No Unknown 3-28 00:00: 00 Dose 2022-0 No Unknown 3-28 00:00: 00 Dose 2022-0 No Unknown 3-28 00:00: 00 Dose 2022-0 No Unknown 3-28 00:00: 00 Dose 2022-0 No Unknown 3-28 00:00: 00 Dose 2022-0 No Unknown 3-28 00:00: 00 Dose 2022-0 No Unknown 3-28 00:00: 00 Dose 2022-0 No Unknown 3-28 00:00: 00 Dose 2022-0 No Unknown 3-28 00:00: 00 Dose 2022-0 No Unknown 3-28 00:00: 00 Dose 2022-0 No Unknown 3-28 00:00: 00 Dose 2022-0 No Unknown 3-28 00:00: 00 Dose 2022-0 No Unknown 3-28 00:00: 00 Dose 2022-0 No Unknown 3-28 00:00: 00 Dose 2022-0 No Unknown 3-28 00:00: 00 Dose 2022-0 No Unknown 3-28 00:00: 00 Dose 2022-0 No Unknown 3-28 00:00: 00 Dose 2022-0 No Unknown 3-28 00:00: 00 Dose 2022-0 No Unknown 3-28 00:00: 00 Dose 2022-0 No Unknown 3-28 00:00: 00 Dose 2022-0 No Unknown 3-28 00:00: 00 Dose 2022-0 No Unknown 3-28 00:00: 00 Dose 2022-0 No Unknown 3-28 00:00: 00 Dose 2022-0 No Unknown 3-28 00:00: 00 Dose 2022-0 No Unknown 3-28 00:00: 00 Dose 2022-0 No Unknown 3-28 00:00: 00 Dose 2022-0 No Unknown 3-28 00:00: 00 Dose 2022-0 No Unknown 3-28 00:00: 00 Dose 2022-0 No Unknown 3-28 00:00: 00 Dose 2022-0 No Unknown 3-28 00:00: 00 Dose 2022-0 No Unknown 3-28 00:00: 00 Dose 2022-0 No Unknown 3-28 00:00: 00 Dose 2022-0 No Unknown 3-28 00:00: 00 Dose 2022-0 No Unknown 3-28 00:00: 00 Dose 2022-0 No Unknown 3-28 00:00: 00 Dose 2022-0 No Unknown 3-28 00:00: 00 Dose 2022-0 No Unknown 3-28 00:00: 00 Dose 2022-0 No Unknown 3-28 00:00: 00 Dose 2022-0 No Unknown 3-28 00:00: 00 Dose 2022-0 No Unknown 3-28 00:00: 00 Dose 2022-0 No Unknown 3-28 00:00: 00 Dose 2022-0 No Unknown 3-28 00:00: 00 Dose 2022-0 No Unknown 3-28 00:00: 00 Dose 2022-0 No Unknown 3-28 00:00: 00 Dose 2022-0 No Unknown 3-28 00:00: 00 Dose 2022-0 No Unknown 3-28 00:00: 00 Dose 2022-0 No Unknown 3-28 00:00: 00 Dose 2022-0 No Unknown 3-28 00:00: 00 Dose 2022-0 No Unknown 3-28 00:00: 00 Dose 2022-0 No Unknown 3-28 00:00: 00 Dose 2022-0 No Unknown 3-28 00:00: 00 Dose 2022-0 No Unknown 3-28 00:00: 00 Dose 2022-0 No Unknown 3-28 00:00: 00 Dose 2022-0 No Unknown 3-28 00:00: 00 Dose 2022-0 No Unknown 3-28 00:00: 00 Dose 2022-0 No Unknown 3-28 00:00: 00 Dose 2022-0 No Unknown 3-28 00:00: 00 Dose 2022-0 No Unknown 3-28 00:00: 00 Dose 2022-0 No Unknown 3-28 00:00: 00 Dose 2022-0 No Unknown 3-28 00:00: 00 Dose 2022-0 No Unknown 3-28 00:00: 00 Dose 2022-0 No Unknown 3-28 00:00: 00 Dose 2022-0 No Unknown 3-28 00:00: 00 Dose 2022-0 No Unknown 3-28 00:00: 00 Dose 2022-0 No Unknown 3-28 00:00: 00 Dose 2022-0 No Unknown 3-28 00:00: 00 Dose 2022-0 No Unknown 3-28 00:00: 00 Dose 2022-0 No Unknown 3-28 00:00: 00 Dose 2022-0 No Unknown 3-28 00:00: 00 Dose 2022-0 No Unknown 3-28 00:00: 00 Dose 2022-0 No Unknown 3-28 00:00: 00 Dose 2022-0 No Unknown 3-28 00:00: 00 Dose 2022-0 No Unknown 3-28 00:00: 00 Dose 2022-0 No Unknown 3-28 00:00: 00 Dose 2022-0 No Unknown 3-28 00:00: 00 Dose 2022-0 No Unknown 3-28 00:00: 00 Dose 2022-0 No Unknown 3-28 00:00: 00 Dose 2022-0 No Unknown 3-28 00:00: 00 Dose 2022-0 No Unknown 3-28 00:00: 00 Dose 2022-0 No Unknown 3-28 00:00: 00 Dose 2022-0 No Unknown 3-28 00:00: 00 Dose 2022-0 No Unknown 3-28 00:00: 00 Dose 2022-0 No Unknown 3-28 00:00: 00 Dose 2022-0 No Unknown 3-28 00:00: 00 Dose 2022-0 No Unknown 3-28 00:00: 00 Dose 2022-0 No Unknown 3-28 00:00: 00 Dose 2022-0 No Unknown 3-28 00:00: 00 Dose 2022-0 No Unknown 3-28 00:00: 00 Dose 2022-0 No Unknown 3-28 00:00: 00 Dose 2022-0 No Unknown 3-28 00:00: 00 Dose 2022-0 No Unknown 3-28 00:00: 00 Dose 2022-0 No Unknown 3-28 00:00: 00 Dose 2022-0 No Unknown 3-28 00:00: 00 Dose 2022-0 No Unknown 3-28 00:00: 00 Dose 2022-0 No Unknown 3-28 00:00: 00 Dose 2022-0 No Unknown 3-28 00:00: 00 Dose 2022-0 No Unknown 3-28 00:00: 00 Dose 2022-0 No Unknown 3-28 00:00: 00 Dose 2022-0 No Unknown 3-28 00:00: 00 Dose 2022-0 No Unknown 3-28 00:00: 00 Dose 2022-0 No Unknown 3-28 00:00: 00 Dose 2022-0 No Unknown 3-28 00:00: 00 Dose 2022-0 No Unknown 3-28 00:00: 00 Dose 2022-0 No Unknown 3-28 00:00: 00 Dose 2022-0 No Unknown 3-28 00:00: 00 Dose 2022-0 No Unknown 3-28 00:00: 00 Dose 2022-0 No Unknown 3-28 00:00: 00 Dose 2022-0 No Unknown 3-28 00:00: 00 Dose 2022-0 No Unknown 3-28 00:00: 00 Dose 2022-0 No Unknown 3-28 00:00: 00 Dose 2022-0 No Unknown 3-28 00:00: 00 Dose 2022-0 No Unknown 3-28 00:00: 00 Dose 2022-0 No Unknown 3-28 00:00: 00 Dose 2022-0 No Unknown 3-28 00:00: 00 Dose 2022-0 No Unknown 3-28 00:00: 00 Dose 2022-0 No Unknown 3-28 00:00: 00 Dose 2022-0 No Unknown 3-28 00:00: 00 Dose 2022-0 No Unknown 3-28 00:00: 00 Dose 2022-0 No Unknown 3-28 00:00: 00 Dose 2022-0 No Unknown 3-28 00:00: 00 Dose 2022-0 No Unknown 3-28 00:00: 00 Dose 2022-0 No Unknown 3-28 00:00: 00 Dose 2022-0 No Unknown 3-28 00:00: 00 Dose 2022-0 No Unknown 3-28 00:00: 00 Dose 2022-0 No Unknown 3-28 00:00: 00 Dose 2022-0 No Unknown 3-28 00:00: 00 Dose 2022-0 No Unknown 3-28 00:00: 00 Dose 2022-0 No Unknown 3-28 00:00: 00 Dose 2022-0 No Unknown 3-28 00:00: 00 Dose 2022-0 No Unknown 3-28 00:00: 00 Dose 2022-0 No Unknown 3-28 00:00: 00 Dose 2022-0 No Unknown 3-28 00:00: 00 Dose 2022-0 No Unknown 3-28 00:00: 00 Dose 2022-0 No Unknown 3-28 00:00: 00 Dose 2022-0 No Unknown 3-28 00:00: 00 Dose 2022-0 No Unknown 3-28 00:00: 00 Dose 2022-0 No Unknown 3-28 00:00: 00 Dose 2022-0 No Unknown 3-28 00:00: 00 Dose 2022-0 No Unknown 3-28 00:00: 00 Dose 2022-0 No Unknown 3-28 00:00: 00 Dose 2022-0 No Unknown 3-28 00:00: 00 Dose 2022-0 No Unknown 3-28 00:00: 00 Dose 2022-0 No Unknown 3-28 00:00: 00 Dose 2022-0 No Unknown 3-28 00:00: 00 Dose 2022-0 No Unknown 3-28 00:00: 00 Dose 2022-0 No Unknown 3-28 00:00: 00 Dose 2022-0 No Unknown 3-28 00:00: 00 Dose 2022-0 No Unknown 3-28 00:00: 00 Dose 2022-0 No Unknown 3-28 00:00: 00 Dose 2022-0 No Unknown 3-28 00:00: 00 Dose 2022-0 No Unknown 3-28 00:00: 00 Dose 2022-0 No Unknown 3-28 00:00: 00 Dose 2022-0 No Unknown 3-28 00:00: 00 Dose 2022-0 No Unknown 3-28 00:00: 00 Dose 2022-0 No Unknown 3-28 00:00: 00 Dose 2022-0 No Unknown 3-28 00:00: 00 Dose 2022-0 No Unknown 3-28 00:00: 00 Dose 2022-0 No Unknown 3-28 00:00: 00 Dose 2022-0 No Unknown 3-28 00:00: 00 Dose 2022-0 No Unknown 3-28 00:00: 00 Dose 2022-0 No Unknown 3-28 00:00: 00 Dose 2022-0 No Unknown 3-28 00:00: 00 Dose 2022-0 No Unknown 3-28 00:00: 00 Dose 2022-0 No Unknown 3-28 00:00: 00 Dose 2022-0 No Unknown 3-28 00:00: 00 Dose 2022-0 No Unknown 3-28 00:00: 00 Dose 2022-0 No Unknown 3-28 00:00: 00 Dose 2022-0 No Unknown 3-28 00:00: 00 Dose 2022-0 No Unknown 3-28 00:00: 00 Dose 2022-0 No Unknown 3-28 00:00: 00 Dose 2022-0 No Unknown 3-28 00:00: 00 Dose 2022-0 No Unknown 3-28 00:00: 00 Dose 2022-0 No Unknown 3-28 00:00: 00 Dose 2022-0 No Unknown 3-28 00:00: 00 Dose 2022-0 No Unknown 3-28 00:00: 00 Dose 2022-0 No Unknown 3-28 00:00: 00 Dose 2022-0 No Unknown 3-28 00:00: 00 Dose 2022-0 No Unknown 3-28 00:00: 00 Dose 2022-0 No Unknown 3-28 00:00: 00 Dose 2022-0 No Unknown 3-28 00:00: 00 Dose 2022-0 No Unknown 3-28 00:00: 00 Dose 2022-0 No Unknown 3-28 00:00: 00 Dose 2022-0 No Unknown 3-28 00:00: 00 Dose 2022-0 No Unknown 3-28 00:00: 00 Dose 2022-0 No Unknown 3-28 00:00: 00 Dose 2022-0 No Unknown 3-28 00:00: 00 Dose 2022-0 No Unknown 3-28 00:00: 00 Dose 2022-0 No Unknown 3-28 00:00: 00 Dose 2022-0 No Unknown 3-28 00:00: 00 Dose 2022-0 No Unknown 3-28 00:00: 00 Dose 2022-0 No Unknown 3-28 00:00: 00 Dose 2022-0 No Unknown 3-28 00:00: 00 Dose 2022-0 No Unknown 3-28 00:00: 00 Dose 2022-0 No Unknown 3-28 00:00: 00 Dose 2022-0 No Unknown 3-28 00:00: 00 Dose 2022-0 No Unknown 3-28 00:00: 00 Dose 2022-0 No Unknown 3-28 00:00: 00 Dose 2022-0 No Unknown 3-28 00:00: 00 Dose 2022-0 No Unknown 3-28 00:00: 00 Dose 2022-0 No Unknown 3-28 00:00: 00 Dose 2022-0 No Unknown 3-28 00:00: 00 Dose 2022-0 No Unknown 3-28 00:00: 00 Dose 2022-0 No Unknown 3-28 00:00: 00 Dose 2022-0 No Unknown 3-28 00:00: 00 Dose 2022-0 No Unknown 3-28 00:00: 00 Dose 2022-0 No Unknown 3-28 00:00: 00 Dose 2022-0 No Unknown 3-28 00:00: 00 Dose 2022-0 No Unknown 3-28 00:00: 00 Dose 2022-0 No Unknown 3-28 00:00: 00 Dose 2022-0 No Unknown 3-28 00:00: 00 Dose 2022-0 No Unknown 3-28 00:00: 00 Dose 2022-0 No Unknown 3-28 00:00: 00 Dose 2022-0 No Unknown 3-28 00:00: 00 Dose 2022-0 No Unknown 3-28 00:00: 00 Dose 2022-0 No Unknown 3-28 00:00: 00 Dose 2022-0 No Unknown 3-28 00:00: 00 Dose 2022-0 No Unknown 3-28 00:00: 00 Dose 2022-0 No Unknown 3-28 00:00: 00 Dose 2022-0 No Unknown 3-28 00:00: 00 Dose 2022-0 No Unknown 3-28 00:00: 00 Dose 2022-0 No Unknown 3-28 00:00: 00 Dose 2022-0 No Unknown 3-28 00:00: 00 Dose 2022-0 No Unknown 3-28 00:00: 00 Dose 2022-0 No Unknown 3-28 00:00: 00 Dose 2022-0 No Unknown 3-28 00:00: 00 Dose 2022-0 No Unknown 3-28 00:00: 00 Dose 2022-0 No Unknown 3-28 00:00: 00 Dose 2022-0 No Unknown 3-28 00:00: 00 Dose 2022-0 No Unknown 3-28 00:00: 00 Dose 2022-0 No Unknown 3-28 00:00: 00 Dose 2022-0 No Unknown 3-28 00:00: 00 Dose 2022-0 No Unknown 3-28 00:00: 00 Dose 2022-0 No Unknown 3-28 00:00: 00 Dose 2022-0 No Unknown 3-28 00:00: 00 Dose 2022-0 No Unknown 3-28 00:00: 00 Dose 2022-0 No Unknown 3-28 00:00: 00 Dose 2022-0 No Unknown 3-28 00:00: 00 Dose 2022-0 No Unknown 3-28 00:00: 00 Dose 2022-0 No Unknown 3-28 00:00: 00 Dose 2022-0 No Unknown 3-28 00:00: 00 Dose 2022-0 No Unknown 3-28 00:00: 00 Dose 2022-0 No Unknown 3-28 00:00: 00 Dose 2022-0 No Unknown 3-28 00:00: 00 Dose 2022-0 No Unknown 3-28 00:00: 00 Dose 2022-0 No Unknown 3-28 00:00: 00 Dose 2022-0 No Unknown 3-28 00:00: 00 Dose 2022-0 No Unknown 3-28 00:00: 00 Dose 2022-0 No Unknown 3-28 00:00: 00 Dose 2022-0 No Unknown 3-28 00:00: 00 Dose 2022-0 No Unknown 3-28 00:00: 00 Dose 2022-0 No Unknown 3-28 00:00: 00 Dose 2022-0 No Unknown 3-28 00:00: 00 Dose 2022-0 No Unknown 3-28 00:00: 00 Dose 2022-0 No Unknown 3-28 00:00: 00 Dose 2022-0 No Unknown 3-28 00:00: 00 Dose 2022-0 No Unknown 3-28 00:00: 00 Dose 2022-0 No Unknown 3-28 00:00: 00 Dose 2022-0 No Unknown 3-28 00:00: 00 Dose 2022-0 No Unknown 3-28 00:00: 00 Dose 2022-0 No Unknown 3-28 00:00: 00 Dose 2022-0 No Unknown 3-28 00:00: 00 Dose 2022-0 No Unknown 3-28 00:00: 00 Dose 2022-0 No Unknown 3-28 00:00: 00 Dose 2022-0 No Unknown 3-28 00:00: 00 Dose 2022-0 No Unknown 3-28 00:00: 00 Dose 2022-0 No Unknown 3-28 00:00: 00 Dose 2022-0 No Unknown 3-28 00:00: 00 Dose 2022-0 No Unknown 3-28 00:00: 00 Dose 2022-0 No Unknown 3-28 00:00: 00 Dose 2022-0 No Unknown 3-28 00:00: 00 Dose 2022-0 No Unknown 3-28 00:00: 00 Dose 2022-0 No Unknown 3-28 00:00: 00 Dose 2022-0 No Unknown 3-28 00:00: 00 Dose 2022-0 No Unknown 3-28 00:00: 00 Dose 2022-0 No Unknown 3-28 00:00: 00 Dose 2022-0 No Unknown 3-28 00:00: 00 Dose 2022-0 No Unknown 3-28 00:00: 00 Dose 2022-0 No Unknown 3-28 00:00: 00 Dose 2022-0 No Unknown 3-28 00:00: 00 Dose 2022-0 No Unknown 3-28 00:00: 00 Dose 2022-0 No Unknown 3-28 00:00: 00 Dose 2022-0 No Unknown 3-28 00:00: 00 Dose 2022-0 No Unknown 3-28 00:00: 00 Dose 2022-0 No Unknown 3-28 00:00: 00 Dose 2022-0 No Unknown 3-28 00:00: 00 Dose 2022-0 No Unknown 3-28 00:00: 00 Dose 2022-0 No Unknown 3-28 00:00: 00 Dose 2022-0 No Unknown 3-28 00:00: 00 Dose 2022-0 No Unknown 3-28 00:00: 00 Dose 2022-0 No Unknown 3-28 00:00: 00 Dose 2022-0 No Unknown 3-28 00:00: 00 Dose 2022-0 No Unknown 3-28 00:00: 00 Dose 2022-0 No Unknown 3-28 00:00: 00 Dose 2022-0 No Unknown 3-28 00:00: 00 Dose 2022-0 No Unknown 3-28 00:00: 00 Dose 2022-0 No Unknown 3-28 00:00: 00 Dose 2022-0 No Unknown 3-28 00:00: 00 Dose 2022-0 No Unknown 3-28 00:00: 00 Dose 2022-0 No Unknown 3-28 00:00: 00 Dose 2022-0 No Unknown 3-28 00:00: 00 Dose 2022-0 No Unknown 3-28 00:00: 00 Dose 2022-0 No Unknown 3-28 00:00: 00 Dose 2022-0 No Unknown 3-28 00:00: 00 Dose 2022-0 No Unknown 3-28 00:00: 00 Dose 2022-0 No Unknown 3-28 00:00: 00 Dose 2022-0 No Unknown 3-28 00:00: 00 Dose 2022-0 No Unknown 3-28 00:00: 00 Dose 2022-0 No Unknown 3-28 00:00: 00 Dose 2022-0 No Unknown 3-28 00:00: 00 Dose 2022-0 No Unknown 3-28 00:00: 00 Dose 2022-0 No Unknown 3-28 00:00: 00 Dose 2022-0 No Unknown 3-28 00:00: 00 Dose 2022-0 No Unknown 3-28 00:00: 00 Dose 2022-0 No Unknown 3-28 00:00: 00 Dose 2022-0 No Unknown 3-28 00:00: 00 Dose 2022-0 No Unknown 3-28 00:00: 00 Dose 2022-0 No Unknown 3-28 00:00: 00 Dose 2022-0 No Unknown 3-28 00:00: 00 Dose 2022-0 No Unknown 3-28 00:00: 00 Dose 2022-0 No Unknown 3-28 00:00: 00 Dose 2022-0 No Unknown 3-28 00:00: 00 Dose 2022-0 No Unknown 3-28 00:00: 00 Dose 2022-0 No Unknown 3-28 00:00: 00 Dose 2022-0 No Unknown 3-28 00:00: 00 Dose 2022-0 No Unknown 3-28 00:00: 00 Dose 2022-0 No Unknown 3-28 00:00: 00 Dose 2022-0 No Unknown 3-28 00:00: 00 Dose 2022-0 No Unknown 3-28 00:00: 00 Dose 2022-0 No Unknown 3-28 00:00: 00 Dose 2022-0 No Unknown 3-28 00:00: 00 Dose 2022-0 No Unknown 3-28 00:00: 00 Dose 2022-0 No Unknown 3-28 00:00: 00 Dose 2022-0 No Unknown 3-28 00:00: 00 Dose 2022-0 No Unknown 3-28 00:00: 00 Dose 2022-0 No Unknown 3-28 00:00: 00 Dose 2022-0 No Unknown 3-28 00:00: 00 Dose 2022-0 No Unknown 3-28 00:00: 00 Dose 2022-0 No Unknown 3-28 00:00: 00 Dose 2022-0 No Unknown 3-28 00:00: 00 Dose 2022-0 No Unknown 3-28 00:00: 00 Dose 2022-0 No Unknown 3-28 00:00: 00 Dose 2022-0 No Unknown 3-28 00:00: 00 Dose 2022-0 No Unknown 3-28 00:00: 00 Dose 2022-0 No Unknown 3-28 00:00: 00 Dose 2022-0 No Unknown 3-28 00:00: 00 Dose 2022-0 No Unknown 3-28 00:00: 00 Dose 2022-0 No Unknown 3-28 00:00: 00 Dose 2022-0 No Unknown 3-28 00:00: 00 Dose 2022-0 No Unknown 3-28 00:00: 00 Dose 2022-0 No Unknown 3-28 00:00: 00 Dose 2022-0 No Unknown 3-28 00:00: 00 Dose 2022-0 No Unknown 3-28 00:00: 00 Dose 2022-0 No Unknown 3-28 00:00: 00 Dose 2022-0 No Unknown 3-28 00:00: 00 Dose 2022-0 No Unknown 3-28 00:00: 00 Dose 2022-0 No Unknown 3-28 00:00: 00 Dose 2022-0 No Unknown 3-28 00:00: 00 Dose 2022-0 No Unknown 3-28 00:00: 00 Dose 2022-0 No Unknown 3-28 00:00: 00 Dose 2022-0 No Unknown 3-28 00:00: 00 Dose 2022-0 No Unknown 3-28 00:00: 00 Dose 2022-0 No Unknown 3-28 00:00: 00 Dose 2022-0 No Unknown 3-28 00:00: 00 Dose 2022-0 No Unknown 3-28 00:00: 00 Dose 2022-0 No Unknown 3-28 00:00: 00 Dose 2022-0 No Unknown 3-28 00:00: 00 Dose 2022-0 No Unknown 3-28 00:00: 00 Dose 2022-0 No Unknown 3-28 00:00: 00 Dose 2022-0 No Unknown 3-28 00:00: 00 Dose 2022-0 No Unknown 3-28 00:00: 00 Dose 2022-0 No Unknown 3-28 00:00: 00 Dose 2022-0 No Unknown 3-28 00:00: 00 Dose 2022-0 No Unknown 3-28 00:00: 00 Dose 2022-0 No Unknown 3-28 00:00: 00 Dose 2022-0 No Unknown 3-28 00:00: 00 Dose 2022-0 No Unknown 3-28 00:00: 00 Dose 2022-0 No Unknown 3-28 00:00: 00 Dose 2022-0 No Unknown 3-28 00:00: 00 Dose 2022-0 No Unknown 3-28 00:00: 00 Dose 2022-0 No Unknown 3-28 00:00: 00 Dose 2022-0 No Unknown 3-28 00:00: 00 Dose 2022-0 No Unknown 3-28 00:00: 00 Dose 2022-0 No Unknown 3-28 00:00: 00 Dose 2022-0 No Unknown 3-28 00:00: 00 Dose 2022-0 No Unknown 3-28 00:00: 00 Dose 2022-0 No Unknown 3-28 00:00: 00 Dose 2022-0 No Unknown 3-28 00:00: 00 Dose 2022-0 No Unknown 3-28 00:00: 00 Dose 2022-0 No Unknown 3-28 00:00: 00 Dose 2022-0 No Unknown 3-28 00:00: 00 Dose 2022-0 No Unknown 3-28 00:00: 00 Dose 2022-0 No Unknown 3-28 00:00: 00 Dose 2022-0 No Unknown 3-28 00:00: 00 Dose 2022-0 No Unknown 3-28 00:00: 00 Dose 2022-0 No Unknown 3-28 00:00: 00 Dose 2022-0 No Unknown 3-28 00:00: 00 Dose 2022-0 No Unknown 3-28 00:00: 00 Dose 2022-0 No Unknown 3-28 00:00: 00 Dose 2022-0 No Unknown 3-28 00:00: 00 Dose 2022-0 No Unknown 3-28 00:00: 00 Dose 2022-0 No Unknown 3-28 00:00: 00 Dose 2022-0 No Unknown 3-28 00:00: 00 Dose 2022-0 No Unknown 3-28 00:00: 00 Dose 2022-0 No Unknown 3-28 00:00: 00 Dose 2022-0 No Unknown 3-28 00:00: 00 Dose 2022-0 No Unknown 3-28 00:00: 00 Dose 2022-0 No Unknown 3-28 00:00: 00 Dose 2022-0 No Unknown 3-28 00:00: 00 Dose 2022-0 No Unknown 3-28 00:00: 00 Dose 2022-0 No Unknown 3-28 00:00: 00 Dose 2022-0 No Unknown 3-28 00:00: 00 Dose 2022-0 No Unknown 3-28 00:00: 00 Dose 2022-0 No Unknown 3-28 00:00: 00 Dose 2022-0 No Unknown 3-28 00:00: 00 Dose 2022-0 No Unknown 3-28 00:00: 00 Dose 2022-0 No Unknown 3-28 00:00: 00 Dose 2022-0 No Unknown 3-28 00:00: 00 Dose 2022-0 No Unknown 3-28 00:00: 00 Dose 2022-0 No Unknown 3-28 00:00: 00 Dose 2022-0 No Unknown 3-28 00:00: 00 Dose 2022-0 No Unknown 3-28 00:00: 00 Dose 2022-0 No Unknown 3-28 00:00: 00 Dose 2022-0 No Unknown 3-28 00:00: 00 Dose 2022-0 No Unknown 3-28 00:00: 00 Dose 2022-0 No Unknown 3-28 00:00: 00 Dose 2022-0 No Unknown 3-28 00:00: 00 Dose 2022-0 No Unknown 3-28 00:00: 00 Dose 2022-0 No Unknown 3-28 00:00: 00 Dose 2022-0 No Unknown 3-28 00:00: 00 Dose 2022-0 No Unknown 3-28 00:00: 00 Dose 2022-0 No Unknown 3-28 00:00: 00 Dose 2022-0 No Unknown 3-28 00:00: 00 Dose 2022-0 No Unknown 3-28 00:00: 00 Dose 2022-0 No Unknown 3-28 00:00: 00 Dose 2022-0 No Unknown 3-28 00:00: 00 Dose 2022-0 No Unknown 3-28 00:00: 00 Dose 2022-0 No Unknown 3-28 00:00: 00 Dose 2022-0 No Unknown 3-28 00:00: 00 Dose 2022-0 No Unknown 3-28 00:00: 00 Dose 2022-0 No Unknown 3-28 00:00: 00 Dose 2022-0 No Unknown 3-28 00:00: 00 Dose 2022-0 No Unknown 3-28 00:00: 00 Dose 2022-0 No Unknown 3-28 00:00: 00 Dose 2022-0 No Unknown 3-28 00:00: 00 Dose 2022-0 No Unknown 3-28 00:00: 00 Dose 2022-0 No Unknown 3-28 00:00: 00 Dose 2022-0 No Unknown 3-28 00:00: 00 Dose 2022-0 No Unknown 3-28 00:00: 00 Dose 2022-0 No Unknown 3-28 00:00: 00 Dose 2022-0 No Unknown 3-28 00:00: 00 Dose 2022-0 No Unknown 3-28 00:00: 00 Dose 2022-0 No Unknown 3-28 00:00: 00 Dose 2022-0 No Unknown 3-28 00:00: 00 Dose 2022-0 No Unknown 3-28 00:00: 00 Dose 2022-0 No Unknown 3-28 00:00: 00 Dose 2022-0 No Unknown 3-28 00:00: 00 Dose 2022-0 No Unknown 3-28 00:00: 00 Dose 2022-0 No Unknown 3-28 00:00: 00 Dose 2022-0 No Unknown 3-28 00:00: 00 Dose 2022-0 No Unknown 3-28 00:00: 00 Dose 2022-0 No Unknown 3-28 00:00: 00 Dose 2022-0 No Unknown 3-28 00:00: 00 Dose 2022-0 No Unknown 3-28 00:00: 00 Dose 2022-0 No Unknown 3-28 00:00: 00 Dose 2022-0 No Unknown 3-28 00:00: 00 Dose 2022-0 No Unknown 3-28 00:00: 00 Dose 2022-0 No Unknown 3-28 00:00: 00 Dose 2022-0 No Unknown 3-28 00:00: 00 Dose 2022-0 No Unknown 3-28 00:00: 00 Dose 2022-0 No Unknown 3-28 00:00: 00 Dose 2022-0 No Unknown 3-28 00:00: 00 Dose 2022-0 No Unknown 3-28 00:00: 00 Dose 2022-0 No Unknown 3-28 00:00: 00 Dose 2022-0 No Unknown 3-28 00:00: 00 Dose 2022-0 No Unknown 3-28 00:00: 00 Dose 2022-0 No Unknown 3-28 00:00: 00 Dose 2022-0 No Unknown 3-28 00:00: 00 Dose 2022-0 No Unknown 3-28 00:00: 00 Dose 2022-0 No Unknown 3-28 00:00: 00 Dose 2022-0 No Unknown 3-28 00:00: 00 Dose 2022-0 No Unknown 3-28 00:00: 00 Dose 2022-0 No Unknown 3-28 00:00: 00 Dose 2022-0 No Unknown 3-28 00:00: 00 Dose 2022-0 No Unknown 3-28 00:00: 00 Dose 2022-0 No Unknown 3-28 00:00: 00 Dose 2022-0 No Unknown 3-28 00:00: 00 Dose 2022-0 No Unknown 3-28 00:00: 00 Dose 2022-0 No Unknown 3-28 00:00: 00 Dose 2022-0 No Unknown 3-28 00:00: 00 Dose 2022-0 No Unknown 3-28 00:00: 00 Dose 2022-0 No Unknown 3-28 00:00: 00 Dose 2022-0 No Unknown 3-28 00:00: 00 Dose 2022-0 No Unknown 3-28 00:00: 00 Dose 2022-0 No Unknown 3-28 00:00: 00 Dose 2022-0 No Unknown 3-28 00:00: 00 Dose 2022-0 No Unknown 3-28 00:00: 00 Dose 2022-0 No Unknown 3-28 00:00: 00 Dose 2022-0 No Unknown 3-28 00:00: 00 Dose 2022-0 No Unknown 3-28 00:00: 00 Dose 2022-0 No Unknown 3-28 00:00: 00 Dose 2022-0 No Unknown 3-28 00:00: 00 Dose 2022-0 No Unknown 3-28 00:00: 00 Dose 2022-0 No Unknown 3-28 00:00: 00 Dose 2022-0 No Unknown 3-28 00:00: 00 Dose 2022-0 No Unknown 3-28 00:00: 00 Dose 2022-0 No Unknown 3-28 00:00: 00 Dose 2022-0 No Unknown 3-28 00:00: 00 Dose 2022-0 No Unknown 3-28 00:00: 00 Dose 2022-0 No Unknown 3-28 00:00: 00 Dose 2022-0 No Unknown 3-28 00:00: 00 Dose 2022-0 No Unknown 3-28 00:00: 00 Dose 2022-0 No Unknown 3-28 00:00: 00 Dose 2022-0 No Unknown 3-28 00:00: 00 Dose 2022-0 No Unknown 3-28 00:00: 00 Dose 2022-0 No Unknown 3-28 00:00: 00 Dose 2022-0 No Unknown 3-28 00:00: 00 Dose 2022-0 No Unknown 3-28 00:00: 00 Dose 2022-0 No Unknown 3-28 00:00: 00 Dose 2022-0 No Unknown 3-28 00:00: 00 Dose 2022-0 No Unknown 3-28 00:00: 00 Dose 2022-0 No Unknown 3-28 00:00: 00 Dose 2022-0 No Unknown 3-28 00:00: 00 Dose 2022-0 No Unknown 3-28 00:00: 00 Dose 2022-0 No Unknown 3-28 00:00: 00 Dose 2022-0 No Unknown 3-28 00:00: 00 Dose 2022-0 No Unknown 3-28 00:00: 00 Dose 2022-0 No Unknown 3-28 00:00: 00 Dose 2022-0 No Unknown 3-28 00:00: 00 Dose 2022-0 No Unknown 3-28 00:00: 00 Dose 2022-0 No Unknown 3-28 00:00: 00 Dose 2022-0 No Unknown 3-28 00:00: 00 Dose 2022-0 No Unknown 3-28 00:00: 00 Dose 2022-0 No Unknown 3-28 00:00: 00 Dose 2022-0 No Unknown 3-28 00:00: 00 Dose 2022-0 No Unknown 3-28 00:00: 00 Dose 2022-0 No Unknown 3-28 00:00: 00 Dose 2022-0 No Unknown 3-28 00:00: 00 Dose 2022-0 No Unknown 3-28 00:00: 00 Dose 2022-0 No Unknown 3-28 00:00: 00 Dose 2022-0 No Unknown 3-28 00:00: 00 Dose 2022-0 No Unknown 3-28 00:00: 00 Dose 2022-0 No Unknown 3-28 00:00: 00 Dose 2022-0 No Unknown 3-28 00:00: 00 Dose 2022-0 No Unknown 3-28 00:00: 00 Dose 2022-0 No Unknown 3-28 00:00: 00 Dose 2022-0 No Unknown 3-28 00:00: 00 Dose 2022-0 No Unknown 3-28 00:00: 00 Dose 2022-0 No Unknown 3-28 00:00: 00 Dose 2022-0 No Unknown 3-28 00:00: 00 Dose 2022-0 No Unknown 3-28 00:00: 00 Dose 2022-0 No Unknown 3-28 00:00: 00 Dose 2022-0 No Unknown 3-28 00:00: 00 Dose 2022-0 No Unknown 3-28 00:00: 00 Dose 2022-0 No Unknown 3-28 00:00: 00 Dose 2022-0 No Unknown 3-28 00:00: 00 Dose 2022-0 No Unknown 3-28 00:00: 00 Dose 2022-0 No Unknown 3-28 00:00: 00 Dose 2022-0 No Unknown 3-28 00:00: 00 Dose 2022-0 No Unknown 3-28 00:00: 00 Dose 2022-0 No Unknown 3-28 00:00: 00 Dose 2022-0 No Unknown 3-28 00:00: 00 Dose 2022-0 No Unknown 3-28 00:00: 00 Dose 2022-0 No Unknown 3-28 00:00: 00 Dose 2022-0 No Unknown 3-28 00:00: 00 Dose 2022-0 No Unknown 3-28 00:00: 00 Dose 2022-0 No Unknown 3-28 00:00: 00 Dose 2022-0 No Unknown 3-28 00:00: 00 Dose 2022-0 No Unknown 3-28 00:00: 00 Dose 2022-0 No Unknown 3-28 00:00: 00 Dose 2022-0 No Unknown 3-28 00:00: 00 Dose 2022-0 No Unknown 3-28 00:00: 00 Dose 2022-0 No Unknown 3-28 00:00: 00 Dose 2022-0 No Unknown 3-28 00:00: 00 Dose 2022-0 No Unknown 3-28 00:00: 00 Dose 2022-0 No Unknown 3-28 00:00: 00 Dose 2022-0 No Unknown 3-28 00:00: 00 Dose 2022-0 No Unknown 3-28 00:00: 00 Dose 2022-0 No Unknown 3-28 00:00: 00 Dose 2022-0 No Unknown 3-28 00:00: 00 Dose 2022-0 No Unknown 3-28 00:00: 00 Dose 2022-0 No Unknown 3-28 00:00: 00 Dose 2022-0 No Unknown 3-28 00:00: 00 Dose 2022-0 No Unknown 3-28 00:00: 00 Dose 2022-0 No Unknown 3-28 00:00: 00 Dose 2022-0 No Unknown 3-28 00:00: 00 Dose 2022-0 No Unknown 3-28 00:00: 00 Dose 2022-0 No Unknown 3-28 00:00: 00 Dose 2022-0 No Unknown 3-28 00:00: 00 Dose 2022-0 No Unknown 3-28 00:00: 00 Dose 2022-0 No Unknown 3-28 00:00: 00 Dose 2022-0 No Unknown 3-28 00:00: 00 Dose 2022-0 No Unknown 3-28 00:00: 00 Dose 2022-0 No Unknown 3-28 00:00: 00 Dose 2022-0 No Unknown 3-28 00:00: 00 Dose 2022-0 No Unknown 3-28 00:00: 00 Dose 2022-0 No Unknown 3-28 00:00: 00 Dose 2022-0 No Unknown 3-28 00:00: 00 Dose 2022-0 No Unknown 3-28 00:00: 00 Dose 2022-0 No Unknown 3-28 00:00: 00 Dose 2022-0 No Unknown 3-28 00:00: 00 Dose 2022-0 No Unknown 3-28 00:00: 00 Dose 2022-0 No Unknown 3-28 00:00: 00 Dose 2022-0 No Unknown 3-28 00:00: 00 Dose 2022-0 No Unknown 3-28 00:00: 00 Dose 2022-0 No Unknown 3-28 00:00: 00 Dose 2022-0 No Unknown 3-28 00:00: 00 Dose 2022-0 No Unknown 3-28 00:00: 00 Dose 2022-0 No Unknown 3-28 00:00: 00 Dose 2022-0 No Unknown 3-28 00:00: 00 Dose 2022-0 No Unknown 3-28 00:00: 00 Dose 2022-0 No Unknown 3-28 00:00: 00 Dose 2022-0 No Unknown 3-28 00:00: 00 Dose 2022-0 No Unknown 3-28 00:00: 00 Dose 2022-0 No Unknown 3-28 00:00: 00 Dose 2022-0 No Unknown 3-28 00:00: 00 Dose 2022-0 No Unknown 3-28 00:00: 00 Dose 2022-0 No Unknown 3-28 00:00: 00 Dose 2022-0 No Unknown 3-28 00:00: 00 Dose 2022-0 No Unknown 3-28 00:00: 00 Dose 2022-0 No Unknown 3-28 00:00: 00 Dose 2022-0 No Unknown 3-28 00:00: 00 Dose 2022-0 No Unknown 3-28 00:00: 00 Dose 2022-0 No Unknown 3-28 00:00: 00 Dose 2022-0 No Unknown 3-28 00:00: 00 Dose 2022-0 No Unknown 3-28 00:00: 00 Dose 2022-0 No Unknown 3-28 00:00: 00 Dose 2022-0 No Unknown 3-28 00:00: 00 Dose 2022-0 No Unknown 3-28 00:00: 00 Dose 2022-0 No Unknown 3-28 00:00: 00 Dose 2022-0 No Unknown 3-28 00:00: 00 Dose 2022-0 No Unknown 3-28 00:00: 00 Dose 2022-0 No Unknown 3-28 00:00: 00 Dose 2022-0 No Unknown 3-28 00:00: 00 Dose 2022-0 No Unknown 3-28 00:00: 00 Dose 2022-0 No Unknown 3-28 00:00: 00 Dose 2022-0 No Unknown 3-28 00:00: 00 Dose 2022-0 No Unknown 3-28 00:00: 00 Dose 2022-0 No Unknown 3-28 00:00: 00 Dose 2022-0 No Unknown 3-28 00:00: 00 Dose 2022-0 No Unknown 3-28 00:00: 00 Dose 2022-0 No Unknown 3-28 00:00: 00 Dose 2022-0 No Unknown 3-28 00:00: 00 Dose 2022-0 No Unknown 3-28 00:00: 00 Dose 2022-0 No Unknown 3-28 00:00: 00 Dose 2022-0 No Unknown 3-28 00:00: 00 Dose 2022-0 No Unknown 3-28 00:00: 00 Dose 2022-0 No Unknown 3-28 00:00: 00 Dose 2022-0 No Unknown 3-28 00:00: 00 Dose 2022-0 No Unknown 3-28 00:00: 00 Dose 2022-0 No Unknown 3-28 00:00: 00 Dose 2022-0 No Unknown 3-28 00:00: 00 Dose 2022-0 No Unknown 3-28 00:00: 00 Dose 2022-0 No Unknown 3-28 00:00: 00 Dose 2022-0 No Unknown 3-28 00:00: 00 Dose 2022-0 No Unknown 3-28 00:00: 00 Dose 2022-0 No Unknown 3-28 00:00: 00 Dose 2022-0 No Unknown 3-28 00:00: 00 Dose 2022-0 No Unknown 3-28 00:00: 00 Dose 2022-0 No Unknown 3-28 00:00: 00 Dose 2022-0 No Unknown 3-28 00:00: 00 Dose 2022-0 No Unknown 3-28 00:00: 00 Dose 2022-0 No Unknown 3-28 00:00: 00 Dose 2022-0 No Unknown 3-28 00:00: 00 Dose 2022-0 No Unknown 3-28 00:00: 00 Dose 2022-0 No Unknown 3-28 00:00: 00 Dose 2022-0 No Unknown 3-28 00:00: 00 Dose 2022-0 No Unknown 3-28 00:00: 00 Dose 2022-0 No Unknown 3-28 00:00: 00 Dose 2022-0 No Unknown 3-28 00:00: 00 Dose 2022-0 No Unknown 3-28 00:00: 00 Dose 2022-0 No Unknown 3-28 00:00: 00 Dose 2022-0 No Unknown 3-28 00:00: 00 Dose 2022-0 No Unknown 3-28 00:00: 00 Dose 2022-0 No Unknown 3-28 00:00: 00 Dose 2022-0 No Unknown 3-28 00:00: 00 Dose 2022-0 No Unknown 3-28 00:00: 00 Dose 2022-0 No Unknown 3-28 00:00: 00 Dose 2022-0 No Unknown 3-28 00:00: 00 Dose 2022-0 No Unknown 3-28 00:00: 00 Dose 2022-0 No Unknown 3-28 00:00: 00 Dose 2022-0 No Unknown 3-28 00:00: 00 Dose 2022-0 No Unknown 3-28 00:00: 00 Dose 2022-0 No Unknown 3-28 00:00: 00 Dose 2022-0 No Unknown 3-28 00:00: 00 Dose 2022-0 No Unknown 3-28 00:00: 00 Dose 2022-0 No Unknown 3-28 00:00: 00 Dose 2022-0 No Unknown 3-28 00:00: 00 Dose 2022-0 No Unknown 3-28 00:00: 00 Dose 2022-0 No Unknown 3-28 00:00: 00 Dose 2022-0 No Unknown 3-28 00:00: 00 Dose 2022-0 No Unknown 3-28 00:00: 00 Dose 2022-0 No Unknown 3-28 00:00: 00 Dose 2022-0 No Unknown 3-28 00:00: 00 Dose 2022-0 No Unknown 3-28 00:00: 00 Dose 2022-0 No Unknown 3-28 00:00: 00 Dose 2022-0 No Unknown 3-28 00:00: 00 Dose 2022-0 No Unknown 3-28 00:00: 00 Dose 2022-0 No Unknown 3-28 00:00: 00 Dose 2022-0 No Unknown 3-28 00:00: 00 Dose 2022-0 No Unknown 3-28 00:00: 00 Dose 2022-0 No Unknown 3-28 00:00: 00 Dose 2022-0 No Unknown 3-28 00:00: 00 Dose 2022-0 No Unknown 3-28 00:00: 00 Dose 2022-0 No Unknown 3-28 00:00: 00 Dose 2022-0 No Unknown 3-28 00:00: 00 Dose 2022-0 No Unknown 3-28 00:00: 00 Dose 2022-0 No Unknown 3-28 00:00: 00 Dose 2022-0 No Unknown 3-28 00:00: 00 Dose 2022-0 No Unknown 3-28 00:00: 00 Dose 2022-0 No Unknown 3-28 00:00: 00 Dose 2022-0 No Unknown 3-28 00:00: 00 Dose 2022-0 No Unknown 3-28 00:00: 00 Dose 2022-0 No Unknown 3-28 00:00: 00 Dose 2022-0 No Unknown 3-28 00:00: 00 Dose 2022-0 No Unknown 3-28 00:00: 00 Dose 2022-0 No Unknown 3-28 00:00: 00 Dose 2022-0 No Unknown 3-28 00:00: 00 Dose 2022-0 No Unknown 3-28 00:00: 00 Dose 2022-0 No Unknown 3-28 00:00: 00 Dose 2022-0 No Unknown 3-28 00:00: 00 Dose 2022-0 No Unknown 3-28 00:00: 00 Dose 2022-0 No Unknown 3-28 00:00: 00 Dose 2022-0 No Unknown 3-28 00:00: 00 Dose 2022-0 No Unknown 3-28 00:00: 00 Dose 2022-0 No Unknown 3-28 00:00: 00 Dose 2022-0 No Unknown 3-28 00:00: 00 Dose 2022-0 No Unknown 3-28 00:00: 00 Dose 2022-0 No Unknown 3-28 00:00: 00 Dose 2022-0 No Unknown 3-28 00:00: 00 Dose 2022-0 No Unknown 3-28 00:00: 00 Dose 2022-0 No Unknown 3-28 00:00: 00 Dose 2022-0 No Unknown 3-28 00:00: 00 Dose 2022-0 No Unknown 3-28 00:00: 00 Dose 2022-0 No Unknown 3-28 00:00: 00 Dose 2022-0 No Unknown 3-28 00:00: 00 Dose 2022-0 No Unknown 3-28 00:00: 00 Dose 2022-0 No Unknown 3-28 00:00: 00 Dose 2022-0 No Unknown 3-28 00:00: 00 Dose 2022-0 No Unknown 3-28 00:00: 00 Dose 2022-0 No Unknown 3-28 00:00: 00 Dose 2022-0 No Unknown 3-28 00:00: 00 Dose 2022-0 No Unknown 3-28 00:00: 00 Dose 2022-0 No Unknown 3-28 00:00: 00 Dose 2022-0 No Unknown 3-28 00:00: 00 Dose 2022-0 No Unknown 3-28 00:00: 00 Dose 2022-0 No Unknown 3-28 00:00: 00 Dose 2022-0 No Unknown 3-28 00:00: 00 Dose 2022-0 No Unknown 3-28 00:00: 00 Dose 2022-0 No Unknown 3-28 00:00: 00 Dose 2022-0 No Unknown 3-28 00:00: 00 Dose 2022-0 No Unknown 3-28 00:00: 00 Dose 2022-0 No Unknown 3-28 00:00: 00 Dose 2022-0 No Unknown 3-28 00:00: 00 Dose 2022-0 No Unknown 3-28 00:00: 00 Dose 2022-0 No Unknown 3-28 00:00: 00 Dose 2022-0 No Unknown 3-28 00:00: 00 Dose 2022-0 No Unknown 3-28 00:00: 00 Dose 2022-0 No Unknown 3-28 00:00: 00 Dose 2022-0 No Unknown 3-28 00:00: 00 Dose 2022-0 No Unknown 3-28 00:00: 00 Dose 2022-0 No Unknown 3-28 00:00: 00 Dose 2022-0 No Unknown 3-28 00:00: 00 Dose 2022-0 No Unknown 3-28 00:00: 00 Dose 2022-0 No Unknown 3-28 00:00: 00 Dose 2022-0 No Unknown 3-28 00:00: 00 Dose 2022-0 No Unknown 3-28 00:00: 00 Dose 2022-0 No Unknown 3-28 00:00: 00 Dose 2022-0 No Unknown 3-28 00:00: 00 Dose 2022-0 No Unknown 3-28 00:00: 00 Dose 2022-0 No Unknown 3-28 00:00: 00 Dose 2022-0 No Unknown 3-28 00:00: 00 Dose 2022-0 No Unknown 3-28 00:00: 00 Dose 2022-0 No Unknown 3-28 00:00: 00 Dose 2022-0 No Unknown 3-28 00:00: 00 Dose 2022-0 No Unknown 3-28 00:00: 00 Dose 2022-0 No Unknown 3-28 00:00: 00 Dose 2022-0 No Unknown 3-28 00:00: 00 Dose 2022-0 No Unknown 3-28 00:00: 00 Dose 2022-0 No Unknown 3-28 00:00: 00 Dose 2022-0 No Unknown 3-28 00:00: 00 Dose 2022-0 No Unknown 3-28 00:00: 00 Dose 2022-0 No Unknown 3-28 00:00: 00 Dose 2022-0 No Unknown 3-28 00:00: 00 Dose 2022-0 No Unknown 3-28 00:00: 00 Dose 2022-0 No Unknown 3-28 00:00: 00 Dose 2022-0 No Unknown 3-28 00:00: 00 Dose 2022-0 No Unknown 3-28 00:00: 00 Dose 2022-0 No Unknown 3-28 00:00: 00 Dose 2022-0 No Unknown 3-28 00:00: 00 Dose 2022-0 No Unknown 3-28 00:00: 00 Dose 2022-0 No Unknown 3-28 00:00: 00 Dose 2022-0 No Unknown 3-28 00:00: 00 Dose 2022-0 No Unknown 3-28 00:00: 00 Dose 2022-0 No Unknown 3-28 00:00: 00 Dose 2022-0 No Unknown 3-28 00:00: 00 Dose 2022-0 No Unknown 3-28 00:00: 00 Dose 2022-0 No Unknown 3-28 00:00: 00 Dose 2022-0 No Unknown 3-28 00:00: 00 Dose 2022-0 No Unknown 3-28 00:00: 00 Dose 2022-0 No Unknown 3-28 00:00: 00 Dose 2022-0 No Unknown 3-28 00:00: 00 Dose 2022-0 No Unknown 3-28 00:00: 00 Dose 2022-0 No Unknown 3-28 00:00: 00 Dose 2022-0 No Unknown 3-28 00:00: 00 Dose 2022-0 No Unknown 3-28 00:00: 00 Dose 2022-0 No Unknown 3-28 00:00: 00 Dose 2022-0 No Unknown 3-28 00:00: 00 Dose 2022-0 No Unknown 3-28 00:00: 00 Dose 2022-0 No Unknown 3-28 00:00: 00 Dose 2022-0 No Unknown 3-28 00:00: 00 Dose 2022-0 No Unknown 3-28 00:00: 00 Dose 2022-0 No Unknown 3-28 00:00: 00 Dose 2022-0 No Unknown 3-28 00:00: 00 Dose 2022-0 No Unknown 3-28 00:00: 00 Dose 2022-0 No Unknown 3-28 00:00: 00 Dose 2022-0 No Unknown 3-28 00:00: 00 Dose 2022-0 No Unknown 3-28 00:00: 00 Dose 2022-0 No Unknown 3-28 00:00: 00 Dose 2022-0 No Unknown 3-28 00:00: 00 Dose 2022-0 No Unknown 3-28 00:00: 00 Dose 2022-0 No Unknown 3-28 00:00: 00 Dose 2022-0 No Unknown 3-28 00:00: 00 Dose 2022-0 No Unknown 3-28 00:00: 00 Dose 2022-0 No Unknown 3-28 00:00: 00 Dose 2022-0 No Unknown 3-28 00:00: 00 Dose 2022-0 No Unknown 3-28 00:00: 00 Dose 2022-0 No Unknown 3-28 00:00: 00 Dose 2022-0 No Unknown 3-28 00:00: 00 Dose 2022-0 No Unknown 3-28 00:00: 00 Dose 2022-0 No Unknown 3-28 00:00: 00 Dose 2022-0 No Unknown 3-28 00:00: 00 Dose 2022-0 No Unknown 3-28 00:00: 00 Dose 2022-0 No Unknown 3-28 00:00: 00 Dose 2022-0 No Unknown 3-28 00:00: 00 Dose 2022-0 No Unknown 3-28 00:00: 00 Dose 2022-0 No Unknown 3-28 00:00: 00 Dose 2022-0 No Unknown 3-28 00:00: 00 Dose 2022-0 No Unknown 3-28 00:00: 00 Dose 2022-0 No Unknown 3-28 00:00: 00 Dose 2022-0 No Unknown 3-28 00:00: 00 Dose 2022-0 No Unknown 3-28 00:00: 00 Dose 2022-0 No Unknown 3-28 00:00: 00 Dose 2022-0 No Unknown 3-28 00:00: 00 Dose 2022-0 No Unknown 3-28 00:00: 00 Dose 2022-0 No Unknown 3-28 00:00: 00 Dose 2022-0 No Unknown 3-28 00:00: 00 Dose 2022-0 No Unknown 3-28 00:00: 00 Dose 2022-0 No Unknown 3-28 00:00: 00 Dose 2022-0 No Unknown 3-28 00:00: 00 Dose 2022-0 No Unknown 3-28 00:00: 00 Dose 2022-0 No Unknown 3-28 00:00: 00 Dose 2022-0 No Unknown 3-28 00:00: 00 Dose 2022-0 No Unknown 3-28 00:00: 00 Dose 2022-0 No Unknown 3-28 00:00: 00 Dose 2022-0 No Unknown 3-28 00:00: 00 Dose 2022-0 No Unknown 3-28 00:00: 00 Dose 2022-0 No Unknown 3-28 00:00: 00 Dose 2022-0 No Unknown 3-28 00:00: 00 Dose 2022-0 No Unknown 3-28 00:00: 00 Dose 2022-0 No Unknown 3-28 00:00: 00 Dose 2022-0 No Unknown 3-28 00:00: 00 Dose 2022-0 No Unknown 3-28 00:00: 00 Dose 2022-0 No Unknown 3-28 00:00: 00 Dose 2022-0 No Unknown 3-28 00:00: 00 Dose 2022-0 No Unknown 3-28 00:00: 00 Dose 2022-0 No Unknown 3-28 00:00: 00 Dose 2022-0 No Unknown 3-28 00:00: 00 Dose 2022-0 No Unknown 3-28 00:00: 00 Dose 2022-0 No Unknown 3-28 00:00: 00 Dose 2022-0 No Unknown 3-28 00:00: 00 Dose 2022-0 No Unknown 3-28 00:00: 00 Dose 2022-0 No Unknown 3-28 00:00: 00 Dose 2022-0 No Unknown 3-28 00:00: 00 Dose 2022-0 No Unknown 3-28 00:00: 00 Dose 2022-0 No Unknown 3-28 00:00: 00 Dose 2022-0 No Unknown 3-28 00:00: 00 Dose 2022-0 No Unknown 3-28 00:00: 00 Dose 2022-0 No Unknown 3-28 00:00: 00 Dose 2022-0 No Unknown 3-28 00:00: 00 Dose 2022-0 No Unknown 3-28 00:00: 00 Dose 2022-0 No Unknown 3-28 00:00: 00 Dose 2022-0 No Unknown 3-28 00:00: 00 Dose 2022-0 No Unknown 3-28 00:00: 00 Dose 2022-0 No Unknown 3-28 00:00: 00 Dose 2022-0 No Unknown 3-28 00:00: 00 Dose 2022-0 No Unknown 3-28 00:00: 00 Dose 2022-0 No Unknown 3-28 00:00: 00 Dose 2022-0 No Unknown 3-28 00:00: 00 Dose 2022-0 No Unknown 3-28 00:00: 00 Dose 2022-0 No Unknown 3-28 00:00: 00 Dose 2022-0 No Unknown 3-28 00:00: 00 Dose 2022-0 No Unknown 3-28 00:00: 00 Dose 2022-0 No Unknown 3-28 00:00: 00 Dose 2022-0 No Unknown 3-28 00:00: 00 Dose 2022-0 No Unknown 3-28 00:00: 00 Dose 2022-0 No Unknown 3-28 00:00: 00 Dose 2022-0 No Unknown 3-28 00:00: 00 Dose 2022-0 No Unknown 3-28 00:00: 00 Dose 2022-0 No Unknown 3-28 00:00: 00 Dose 2022-0 No Unknown 3-28 00:00: 00 Dose 2022-0 No Unknown 3-28 00:00: 00 Dose 2022-0 No Unknown 3-28 00:00: 00 Dose 2022-0 No Unknown 3-28 00:00: 00 Dose 2022-0 No Unknown 3-28 00:00: 00 Dose 2022-0 No Unknown 3-28 00:00: 00 Dose 2022-0 No Unknown 3-28 00:00: 00 Dose 2022-0 No Unknown 3-28 00:00: 00 Dose 2022-0 No Unknown 3-28 00:00: 00 Dose 2022-0 No Unknown 3-28 00:00: 00 Dose 2022-0 No Unknown 3-28 00:00: 00 Dose 2022-0 No Unknown 3-28 00:00: 00 Dose 2022-0 No Unknown 3-28 00:00: 00 Dose 2022-0 No Unknown 3-28 00:00: 00 Dose 2022-0 No Unknown 3-28 00:00: 00 Dose 2022-0 No Unknown 3-28 00:00: 00 Dose 2022-0 No Unknown 3-28 00:00: 00 Dose 2022-0 No Unknown 3-28 00:00: 00 Dose 2022-0 No Unknown 3-28 00:00: 00 Dose 2022-0 No Unknown 3-28 00:00: 00 Dose 2022-0 No Unknown 3-28 00:00: 00 Dose 2022-0 No Unknown 3-28 00:00: 00 Dose 2022-0 No Unknown 3-28 00:00: 00 Dose 2022-0 No Unknown 3-28 00:00: 00 Dose 2022-0 No Unknown 3-28 00:00: 00 Dose 2022-0 No Unknown 3-28 00:00: 00 Dose 2022-0 No Unknown 3-28 00:00: 00 Dose 2022-0 No Unknown 3-28 00:00: 00 Dose 2022-0 No Unknown 3-28 00:00: 00 Dose 2022-0 No Unknown 3-28 00:00: 00 Dose 2022-0 No Unknown 3-28 00:00: 00 Dose 2022-0 No Unknown 3-28 00:00: 00 Dose 2022-0 No Unknown 3-28 00:00: 00 Dose 2022-0 No Unknown 3-28 00:00: 00 Dose 2022-0 No Unknown 3-28 00:00: 00 Dose 2022-0 No Unknown 3-28 00:00: 00 Dose 2022-0 No Unknown 3-28 00:00: 00 Dose 2022-0 No Unknown 3-28 00:00: 00 Dose 2022-0 No Unknown 3-28 00:00: 00 Dose 2022-0 No Unknown 3-28 00:00: 00 Dose 2022-0 No Unknown 3-28 00:00: 00 Dose 2022-0 No Unknown 3-28 00:00: 00 Dose 2022-0 No Unknown 3-28 00:00: 00 Dose 2022-0 No Unknown 3-28 00:00: 00 Dose 2022-0 No Unknown 3-28 00:00: 00 Dose 2022-0 No Unknown 3-28 00:00: 00 Dose 2022-0 No Unknown 3-28 00:00: 00 Dose 2022-0 No Unknown 3-28 00:00: 00 Dose 2022-0 No Unknown 3-28 00:00: 00 Dose 2022-0 No Unknown 3-28 00:00: 00 Dose 2022-0 No Unknown 3-28 00:00: 00 Dose 2022-0 No Unknown 3-28 00:00: 00 Dose 2022-0 No Unknown 3-28 00:00: 00 Dose 2022-0 No Unknown 3-28 00:00: 00 Dose 2022-0 No Unknown 3-28 00:00: 00 Dose 2022-0 No Unknown 3-28 00:00: 00 Dose 2022-0 No Unknown 3-28 00:00: 00 Dose 2022-0 No Unknown 3-28 00:00: 00 Dose 2022-0 No Unknown 3-28 00:00: 00 Dose 2022-0 No Unknown 3-28 00:00: 00 Dose 2022-0 No Unknown 3-28 00:00: 00 Dose 2022-0 No Unknown 3-28 00:00: 00 Dose 2022-0 No Unknown 3-28 00:00: 00 Dose 2022-0 No Unknown 3-28 00:00: 00 Dose 2022-0 No Unknown 3-28 00:00: 00 Dose 2022-0 No Unknown 3-28 00:00: 00 Dose 2022-0 No Unknown 3-28 00:00: 00 Dose 2022-0 No Unknown 3-28 00:00: 00 Dose 2022-0 No Unknown 3-28 00:00: 00 Dose 2022-0 No Unknown 3-28 00:00: 00 Dose 2022-0 No Unknown 3-28 00:00: 00 Dose 2022-0 No Unknown 3-28 00:00: 00 Dose 2022-0 No Unknown 3-28 00:00: 00 Dose 2022-0 No Unknown 3-28 00:00: 00 Dose 2022-0 No Unknown 3-28 00:00: 00 Dose 2022-0 No Unknown 3-28 00:00: 00 Dose 2022-0 No Unknown 3-28 00:00: 00 Dose 2022-0 No Unknown 3-28 00:00: 00 Dose 2022-0 No Unknown 3-28 00:00: 00 Dose 2022-0 No Unknown 3-28 00:00: 00 Dose 2022-0 No Unknown 3-28 00:00: 00 Dose 2022-0 No Unknown 3-28 00:00: 00 Dose 2022-0 No Unknown 3-28 00:00: 00 Dose 2022-0 No Unknown 3-28 00:00: 00 Dose 2022-0 No Unknown 3-28 00:00: 00 Dose 2022-0 No Unknown 3-28 00:00: 00 Dose 2022-0 No Unknown 3-28 00:00: 00 Dose 2022-0 No Unknown 3-28 00:00: 00 Dose 2022-0 No Unknown 3-28 00:00: 00 Dose 2022-0 No Unknown 3-28 00:00: 00 Dose 2022-0 No Unknown 3-28 00:00: 00 Dose 2022-0 No Unknown 3-28 00:00: 00 Dose 2022-0 No Unknown 3-28 00:00: 00 Dose 2022-0 No Unknown 3-28 00:00: 00 Dose 2022-0 No Unknown 3-28 00:00: 00 Dose 2022-0 No Unknown 3-28 00:00: 00 Dose 2022-0 No Unknown 3-28 00:00: 00 Dose 2022-0 No Unknown 3-28 00:00: 00 Dose 2022-0 No Unknown 3-28 00:00: 00 Dose 2022-0 No Unknown 3-28 00:00: 00 Dose 2022-0 No Unknown 3-28 00:00: 00 Dose 2022-0 No Unknown 3-28 00:00: 00 Dose 2022-0 No Unknown 3-28 00:00: 00 Dose 2022-0 No Unknown 3-28 00:00: 00 Dose 2022-0 No Unknown 3-28 00:00: 00 Dose 2022-0 No Unknown 3-28 00:00: 00 Dose 2022-0 No Unknown 3-28 00:00: 00 Dose 2022-0 No Unknown 3-28 00:00: 00 Dose 2022-0 No Unknown 3-28 00:00: 00 Dose 2022-0 No Unknown 3-28 00:00: 00 Dose 2022-0 No Unknown 3-28 00:00: 00 Dose 2022-0 No Unknown 3-28 00:00: 00 Dose 2022-0 No Unknown 3-28 00:00: 00 Dose 2022-0 No Unknown 3-28 00:00: 00 Dose 2022-0 No Unknown 3-28 00:00: 00 Dose 2022-0 No Unknown 3-28 00:00: 00 Dose 2022-0 No Unknown 3-28 00:00: 00 Dose 2022-0 No Unknown 3-28 00:00: 00 Dose 2022-0 No Unknown 3-28 00:00: 00 Dose 2022-0 No Unknown 3-28 00:00: 00 Dose 2022-0 No Unknown 3-28 00:00: 00 Dose 2022-0 No Unknown 3-28 00:00: 00 Dose 2022-0 No Unknown 3-28 00:00: 00 Dose 2022-0 No Unknown 3-28 00:00: 00 Dose 2022-0 No Unknown 3-28 00:00: 00 Dose 2022-0 No Unknown 3-28 00:00: 00 Dose 2022-0 No Unknown 3-28 00:00: 00 Dose 2022-0 No Unknown 3-28 00:00: 00 Dose 2022-0 No Unknown 3-28 00:00: 00 Dose 2022-0 No Unknown 3-28 00:00: 00 Dose 2022-0 No Unknown 3-28 00:00: 00 Dose 2022-0 No Unknown 3-28 00:00: 00 Dose 2022-0 No Unknown 3-28 00:00: 00 Dose 2022-0 No Unknown 3-28 00:00: 00 Dose 2022-0 No Unknown 3-28 00:00: 00 Dose 2022-0 No Unknown 3-28 00:00: 00 Dose 2022-0 No Unknown 3-28 00:00: 00 Dose 2022-0 No Unknown 3-28 00:00: 00 Dose 2022-0 No Unknown 3-28 00:00: 00 Dose 2022-0 No Unknown 3-28 00:00: 00 Dose 2022-0 No Unknown 3-28 00:00: 00 Dose 2022-0 No Unknown 3-28 00:00: 00 Dose 2022-0 No Unknown 3-28 00:00: 00 Dose 2022-0 No Unknown 3-28 00:00: 00 Dose 2022-0 No Unknown 3-28 00:00: 00 Dose 2022-0 No Unknown 3-28 00:00: 00 Dose 2022-0 No Unknown 3-28 00:00: 00 Dose 2022-0 No Unknown 3-28 00:00: 00 Dose 2022-0 No Unknown 3-28 00:00: 00 Dose 2022-0 No Unknown 3-28 00:00: 00 Dose 2022-0 No Unknown 3-28 00:00: 00 Dose 2022-0 No Unknown 3-28 00:00: 00 Dose 2022-0 No Unknown 3-28 00:00: 00 Dose 2022-0 No Unknown 3-28 00:00: 00 Dose 2022-0 No Unknown 3-28 00:00: 00 Dose 2022-0 No Unknown 3-28 00:00: 00 Dose 2022-0 No Unknown 3-28 00:00: 00 Dose 2022-0 No Unknown 3-28 00:00: 00 Dose 2022-0 No Unknown 3-28 00:00: 00 Dose 2022-0 No Unknown 3-28 00:00: 00 Dose 2022-0 No Unknown 3-28 00:00: 00 Dose 2022-0 No Unknown 3-28 00:00: 00 Dose 2022-0 No Unknown 3-28 00:00: 00 Dose 2022-0 No Unknown 3-28 00:00: 00 Dose 2022-0 No Unknown 3-28 00:00: 00 Dose 2022-0 No Unknown 3-28 00:00: 00 Dose 2022-0 No Unknown 3-28 00:00: 00 Dose 2022-0 No Unknown 3-28 00:00: 00 Dose 2022-0 No Unknown 3-28 00:00: 00 Dose 2022-0 No Unknown 3-28 00:00: 00 Dose 2022-0 No Unknown 3-28 00:00: 00 Dose 2022-0 No Unknown 3-28 00:00: 00 Dose 2022-0 No Unknown 3-28 00:00: 00 Dose 2022-0 No Unknown 3-28 00:00: 00 Dose 2022-0 No Unknown 3-28 00:00: 00 Dose 2022-0 No Unknown 3-28 00:00: 00 Dose 2022-0 No Unknown 3-28 00:00: 00 Dose 2022-0 No Unknown 3-28 00:00: 00 Dose 2022-0 No Unknown 3-28 00:00: 00 Dose 2022-0 No Unknown 3-28 00:00: 00 Dose 2022-0 No Unknown 3-28 00:00: 00 Dose 2022-0 No Unknown 3-28 00:00: 00 Dose 2022-0 No Unknown 3-28 00:00: 00 Dose 2022-0 No Unknown 3-28 00:00: 00 Dose 2022-0 No Unknown 3-28 00:00: 00 Dose 2022-0 No Unknown 3-28 00:00: 00 Dose 2022-0 No Unknown 3-28 00:00: 00 Dose 2022-0 No Unknown 3-28 00:00: 00 Dose 2022-0 No Unknown 3-28 00:00: 00 Dose 2022-0 No Unknown 3-28 00:00: 00 Dose 2022-0 No Unknown 3-28 00:00: 00 Dose 2022-0 No Unknown 3-28 00:00: 00 Dose 2022-0 No Unknown 3-28 00:00: 00 Dose 2022-0 No Unknown 3-28 00:00: 00 Dose 2022-0 No Unknown 3-28 00:00: 00 Dose 2022-0 No Unknown 3-28 00:00: 00 Dose 2022-0 No Unknown 3-28 00:00: 00 Dose 2022-0 No Unknown 3-28 00:00: 00 Dose 2022-0 No Unknown 3-28 00:00: 00 Dose 2022-0 No Unknown 3-28 00:00: 00 Dose 2022-0 No Unknown 3-28 00:00: 00 Dose 2022-0 No Unknown 3-28 00:00: 00 Dose 2022-0 No Unknown 3-28 00:00: 00 Dose 2022-0 No Unknown 3-28 00:00: 00 Dose 2022-0 No Unknown 3-28 00:00: 00 Dose 2022-0 No Unknown 3-28 00:00: 00 Dose 2022-0 No Unknown 3-28 00:00: 00 Dose 2022-0 No Unknown 3-28 00:00: 00 Dose 2022-0 No Unknown 3-28 00:00: 00 Dose 2022-0 No Unknown 3-28 00:00: 00 Dose 2022-0 No Unknown 3-28 00:00: 00 Dose 2022-0 No Unknown 3-28 00:00: 00 Dose 2022-0 No Unknown 3-28 00:00: 00 Dose 2022-0 No Unknown 3-28 00:00: 00 Dose 2022-0 No Unknown 3-28 00:00: 00 Dose 2022-0 No Unknown 3-28 00:00: 00 Dose 2022-0 No Unknown 3-28 00:00: 00 Dose 2022-0 No Unknown 3-28 00:00: 00 Dose 2022-0 No Unknown 3-28 00:00: 00 Dose 2022-0 No Unknown 3-28 00:00: 00 Dose 2022-0 No Unknown 3-28 00:00: 00 Dose 2022-0 No Unknown 3-28 00:00: 00 Dose 2022-0 No Unknown 3-28 00:00: 00 Dose 2022-0 No Unknown 3-28 00:00: 00 Dose 2022-0 No Unknown 3-28 00:00: 00 Dose 2022-0 No Unknown 3-28 00:00: 00 Dose 2022-0 No Unknown 3-28 00:00: 00 Dose 2022-0 No Unknown 3-28 00:00: 00 Dose 2022-0 No Unknown 3-28 00:00: 00 Dose 2022-0 No Unknown 3-28 00:00: 00 Dose 2022-0 No Unknown 3-28 00:00: 00 Dose 2022-0 No Unknown 3-28 00:00: 00 Dose 2022-0 No Unknown 3-28 00:00: 00 Dose 2022-0 No Unknown 3-28 00:00: 00 Dose 2022-0 No Unknown 3-28 00:00: 00 Dose 2022-0 No Unknown 3-28 00:00: 00 Dose 2022-0 No Unknown 3-28 00:00: 00 Dose 2022-0 No Unknown 3-28 00:00: 00 Dose 2022-0 No Unknown 3-28 00:00: 00 Dose 2022-0 No Unknown 3-28 00:00: 00 Dose 2022-0 No Unknown 3-28 00:00: 00 Dose 2022-0 No Unknown 3-28 00:00: 00 Dose 2022-0 No Unknown 3-28 00:00: 00 Dose 2022-0 No Unknown 3-28 00:00: 00 Dose 2022-0 No Unknown 3-28 00:00: 00 Dose 2022-0 No Unknown 3-28 00:00: 00 Dose 2022-0 No Unknown 3-28 00:00: 00 Dose 2022-0 No Unknown 3-28 00:00: 00 Dose 2022-0 No Unknown 3-28 00:00: 00 Dose 2022-0 No Unknown 3-28 00:00: 00 Dose 2022-0 No Unknown 3-28 00:00: 00 Dose 2022-0 No Unknown 3-28 00:00: 00 Dose 2022-0 No Unknown 3-28 00:00: 00 Dose 2022-0 No Unknown 3-28 00:00: 00 Dose 2022-0 No Unknown 3-28 00:00: 00 Dose 2022-0 No Unknown 3-28 00:00: 00 Dose 2022-0 No Unknown 3-28 00:00: 00 Dose 2022-0 No Unknown 3-28 00:00: 00 Dose 2022-0 No Unknown 3-28 00:00: 00 Dose 2022-0 No Unknown 3-28 00:00: 00 Dose 2022-0 No Unknown 3-28 00:00: 00 Dose 2022-0 No Unknown 3-28 00:00: 00 Dose 2022-0 No Unknown 3-28 00:00: 00 Dose 2022-0 No Unknown 3-28 00:00: 00 Dose 2022-0 No Unknown 3-28 00:00: 00 Dose 2022-0 No Unknown 3-28 00:00: 00 Dose 2022-0 No Unknown 3-28 00:00: 00 Dose 2022-0 No Unknown 3-28 00:00: 00 Dose 2022-0 No Unknown 3-28 00:00: 00 Dose 2022-0 No Unknown 3-28 00:00: 00 Dose 2022-0 No Unknown 3-28 00:00: 00 Dose 2022-0 No Unknown 3-28 00:00: 00 Dose 2022-0 No Unknown 3-28 00:00: 00 Dose 2022-0 No Unknown 3-28 00:00: 00 Dose 2022-0 No Unknown 3-28 00:00: 00 Dose 2022-0 No Unknown 3-28 00:00: 00 Dose 2022-0 No Unknown 3-28 00:00: 00 Dose 2022-0 No Unknown 3-28 00:00: 00 Dose 2022-0 No Unknown 3-28 00:00: 00 Dose 2022-0 No Unknown 3-28 00:00: 00 Dose 2022-0 No Unknown 3-28 00:00: 00 Dose 2022-0 No Unknown 3-28 00:00: 00 Dose 2022-0 No Unknown 3-28 00:00: 00 Dose 2022-0 No Unknown 3-28 00:00: 00 Dose 2022-0 No Unknown 3-28 00:00: 00 Dose 2022-0 No Unknown 3-28 00:00: 00 Dose 2022-0 No Unknown 3-28 00:00: 00 Dose 2022-0 No Unknown 3-28 00:00: 00 Dose 2022-0 No Unknown 3-28 00:00: 00 Dose 2022-0 No Unknown 3-28 00:00: 00 Dose 2022-0 No Unknown 3-28 00:00: 00 Dose 2022-0 No Unknown 3-28 00:00: 00 Dose 2022-0 No Unknown 3-28 00:00: 00 Dose 2022-0 No Unknown 3-28 00:00: 00 Dose 2022-0 No Unknown 3-28 00:00: 00 Dose 2022-0 No Unknown 3-28 00:00: 00 Dose 2022-0 No Unknown 3-28 00:00: 00 Dose 2022-0 No Unknown 3-28 00:00: 00 Dose 2022-0 No Unknown 3-28 00:00: 00 Dose 2022-0 No Unknown 3-28 00:00: 00 Dose 2022-0 No Unknown 3-28 00:00: 00 Dose 2022-0 No Unknown 3-28 00:00: 00 Dose 2022-0 No Unknown 3-28 00:00: 00 Dose 2022-0 No Unknown 3-28 00:00: 00 Dose 2022-0 No Unknown 3-28 00:00: 00 Dose 2022-0 No Unknown 3-28 00:00: 00 Dose 2022-0 No Unknown 3-28 00:00: 00 Dose 2022-0 No Unknown 3-28 00:00: 00 Dose 2022-0 No Unknown 3-28 00:00: 00 Dose 2022-0 No Unknown 3-28 00:00: 00 Dose 2022-0 No Unknown 3-28 00:00: 00 Dose 2022-0 No Unknown 3-28 00:00: 00 Dose 2022-0 No Unknown 3-28 00:00: 00 Dose 2022-0 No Unknown 3-28 00:00: 00 Dose 2022-0 No Unknown 3-28 00:00: 00 Dose 2022-0 No Unknown 3-28 00:00: 00 Dose 2022-0 No Unknown 3-28 00:00: 00 Dose 2022-0 No Unknown 3-28 00:00: 00 Dose 2022-0 No Unknown 3-28 00:00: 00 Dose 2022-0 No Unknown 3-28 00:00: 00 Dose 2022-0 No Unknown 3-28 00:00: 00 Dose 2022-0 No Unknown 3-28 00:00: 00 Dose 2022-0 No Unknown 3-28 00:00: 00 Dose 2022-0 No Unknown 3-28 00:00: 00 Dose 2022-0 No Unknown 3-28 00:00: 00 Dose 2022-0 No Unknown 3-28 00:00: 00 Dose 2022-0 No Unknown 3-28 00:00: 00 Dose 2022-0 No Unknown 3-28 00:00: 00 Dose 2022-0 No Unknown 3-28 00:00: 00 Dose 2022-0 No Unknown 3-28 00:00: 00 Dose 2022-0 No Unknown 3-28 00:00: 00 Dose 2022-0 No Unknown 3-28 00:00: 00 Dose 2022-0 No Unknown 3-28 00:00: 00 Dose 2022-0 No Unknown 3-28 00:00: 00 Dose 2022-0 No Unknown 3-28 00:00: 00 Dose 2022-0 No Unknown 3-28 00:00: 00 Dose 2022-0 No Unknown 3-28 00:00: 00 Dose 2022-0 No Unknown 3-28 00:00: 00 Dose 2022-0 No Unknown 3-28 00:00: 00 Dose 2022-0 No Unknown 3-28 00:00: 00 Dose 2022-0 No Unknown 3-28 00:00: 00 Dose 2022-0 No Unknown 3-28 00:00: 00 Dose 2022-0 No Unknown 3-28 00:00: 00 Dose 2022-0 No Unknown 3-28 00:00: 00 Dose 2022-0 No Unknown 3-28 00:00: 00 Dose 2022-0 No Unknown 3-28 00:00: 00 Dose 2022-0 No Unknown 3-28 00:00: 00 Dose 2022-0 No Unknown 3-28 00:00: 00 Dose 2022-0 No Unknown 3-28 00:00: 00 Dose 2022-0 No Unknown 3-28 00:00: 00 Dose 2022-0 No Unknown 3-28 00:00: 00 Dose 2022-0 No Unknown 3-28 00:00: 00 Dose 2022-0 No Unknown 3-28 00:00: 00 Dose 2022-0 No Unknown 3-28 00:00: 00 Dose 2022-0 No Unknown 3-28 00:00: 00 Dose 2022-0 No Unknown 3-28 00:00: 00 Dose 2022-0 No Unknown 3-28 00:00: 00 Dose 2022-0 No Unknown 3-28 00:00: 00 Dose 2022-0 No Unknown 3-28 00:00: 00 Dose 2022-0 No Unknown 3-28 00:00: 00 Dose 2022-0 No Unknown 3-28 00:00: 00 Dose 2022-0 No Unknown 3-28 00:00: 00 Dose 2022-0 No Unknown 3-28 00:00: 00 Dose 2022-0 No Unknown 3-28 00:00: 00 Dose 2022-0 No Unknown 3-28 00:00: 00 Dose 2022-0 No Unknown 3-28 00:00: 00 Dose 2022-0 No Unknown 3-28 00:00: 00 Dose 2022-0 No Unknown 3-28 00:00: 00 Dose 2022-0 No Unknown 3-28 00:00: 00 Dose 2022-0 No Unknown 3-28 00:00: 00 Dose 2022-0 No Unknown 3-28 00:00: 00 Dose 2022-0 No Unknown 3-28 00:00: 00 Dose 2022-0 No Unknown 3-28 00:00: 00 Dose 2022-0 No Unknown 3-28 00:00: 00 Dose 2022-0 No Unknown 3-28 00:00: 00 Dose 2022-0 No Unknown 3-28 00:00: 00 Dose 2022-0 No Unknown 3-28 00:00: 00 Dose 2022-0 No Unknown 3-28 00:00: 00 Dose 2022-0 No Unknown 3-28 00:00: 00 Dose 2022-0 No Unknown 3-28 00:00: 00 Dose 2022-0 No Unknown 3-28 00:00: 00 Dose 2022-0 No Unknown 3-28 00:00: 00 Dose 2022-0 No Unknown 3-28 00:00: 00 Dose 2022-0 No Unknown 3-28 00:00: 00 Dose 2022-0 No Unknown 3-28 00:00: 00 Dose 2022-0 No Unknown 3-28 00:00: 00 Dose 2022-0 No Unknown 3-28 00:00: 00 Dose 2022-0 No Unknown 3-28 00:00: 00 Dose 2022-0 No Unknown 3-28 00:00: 00 Dose 2022-0 No Unknown 3-28 00:00: 00 Dose 2022-0 No Unknown 3-28 00:00: 00 Dose 2022-0 No Unknown 3-28 00:00: 00 Dose 2022-0 No Unknown 3-28 00:00: 00 Dose 2022-0 No Unknown 3-28 00:00: 00 Dose 2022-0 No Unknown 3-28 00:00: 00 Dose 2022-0 No Unknown 3-28 00:00: 00 Dose 2022-0 No Unknown 3-28 00:00: 00 Dose 2022-0 No Unknown 3-28 00:00: 00 Dose 2022-0 No Unknown 3-28 00:00: 00 Dose 2022-0 No Unknown 3-28 00:00: 00 Dose 2022-0 No Unknown 3-28 00:00: 00 Dose 2022-0 No Unknown 3-28 00:00: 00 Dose 2022-0 No Unknown 3-28 00:00: 00 Dose 2022-0 No Unknown 3-28 00:00: 00 Dose 2022-0 No Unknown 3-28 00:00: 00 Dose 2022-0 No Unknown 3-28 00:00: 00 Dose 2022-0 No Unknown 3-28 00:00: 00 Dose 2022-0 No Unknown 3-28 00:00: 00 Dose 2022-0 No Unknown 3-28 00:00: 00 Dose 2022-0 No Unknown 3-28 00:00: 00 Dose 2022-0 No Unknown 3-28 00:00: 00 Dose 2022-0 No Unknown 3-28 00:00: 00 Dose 2022-0 No Unknown 3-28 00:00: 00 Dose 2022-0 No Unknown 3-28 00:00: 00 Dose 2022-0 No Unknown 3-28 00:00: 00 Dose 2022-0 No Unknown 3-28 00:00: 00 Dose 2022-0 No Unknown 3-28 00:00: 00 Dose 2022-0 No Unknown 3-28 00:00: 00 Dose 2022-0 No Unknown 3-28 00:00: 00 Dose 2022-0 No Unknown 3-28 00:00: 00 Dose 2022-0 No Unknown 3-28 00:00: 00 Dose 2022-0 No Unknown 3-28 00:00: 00 Dose 2022-0 No Unknown 3-28 00:00: 00 Dose 2022-0 No Unknown 3-28 00:00: 00 Dose 2022-0 No Unknown 3-28 00:00: 00 Dose 2022-0 No Unknown 3-28 00:00: 00 Dose 2022-0 No Unknown 3-28 00:00: 00 Dose 2022-0 No Unknown 3-28 00:00: 00 Dose 2022-0 No Unknown 3-28 00:00: 00 Dose 2022-0 No Unknown 3-28 00:00: 00 Dose 2022-0 No Unknown 3-28 00:00: 00 Dose 2022-0 No Unknown 3-28 00:00: 00 Dose 2022-0 No Unknown 3-28 00:00: 00 Dose 2022-0 No Unknown 3-28 00:00: 00 Dose 2022-0 No Unknown 3-28 00:00: 00 Dose 2022-0 No Unknown 3-28 00:00: 00 Dose 2022-0 No Unknown 3-28 00:00: 00 Dose 2022-0 No Unknown 3-28 00:00: 00 Dose 2022-0 No Unknown 3-28 00:00: 00 Dose 2022-0 No Unknown 3-28 00:00: 00 Dose 2022-0 No Unknown 3-28 00:00: 00 Dose 2022-0 No Unknown 3-28 00:00: 00 Dose 2022-0 No Unknown 3-28 00:00: 00 Dose 2022-0 No Unknown 3-28 00:00: 00 Dose 2022-0 No Unknown 3-28 00:00: 00 Dose 2022-0 No Unknown 3-28 00:00: 00 Dose 2022-0 No Unknown 3-28 00:00: 00 Dose 2022-0 No Unknown 3-28 00:00: 00 Dose 2022-0 No Unknown 3-28 00:00: 00 Dose 2022-0 No Unknown 3-28 00:00: 00 Dose 2022-0 No Unknown 3-28 00:00: 00 Dose 2022-0 No Unknown 3-28 00:00: 00 Dose 2022-0 No Unknown 3-28 00:00: 00 Dose 2022-0 No Unknown 3-28 00:00: 00 Dose 2022-0 No Unknown 3-28 00:00: 00 Dose 2022-0 No Unknown 3-28 00:00: 00 Dose 2022-0 No Unknown 3-28 00:00: 00 Dose 2022-0 No Unknown 3-28 00:00: 00 Dose 2022-0 No Unknown 3-28 00:00: 00 Dose 2022-0 No Unknown 3-28 00:00: 00 Dose 2022-0 No Unknown 3-28 00:00: 00 Dose 2022-0 No Unknown 3-28 00:00: 00 Dose 2022-0 No Unknown 3-28 00:00: 00 Dose 2022-0 No Unknown 3-28 00:00: 00 Dose 2022-0 No Unknown 3-28 00:00: 00 Dose 2022-0 No Unknown 3-28 00:00: 00 Dose 2022-0 No Unknown 3-28 00:00: 00 Dose 2022-0 No Unknown 3-28 00:00: 00 Dose 2022-0 No Unknown 3-28 00:00: 00 Dose 2022-0 No Unknown 3-28 00:00: 00 Dose 2022-0 No Unknown 3-28 00:00: 00 Dose 2022-0 No Unknown 3-28 00:00: 00 Dose 2022-0 No Unknown 3-28 00:00: 00 Dose 2022-0 No Unknown 3-28 00:00: 00 Dose 2022-0 No Unknown 3-28 00:00: 00 Dose 2022-0 No Unknown 3-28 00:00: 00 Dose 2022-0 No Unknown 3-28 00:00: 00 Dose 2022-0 No Unknown 3-28 00:00: 00 Dose 2022-0 No Unknown 3-28 00:00: 00 Dose 2022-0 No Unknown 3-28 00:00: 00 Dose 2022-0 No Unknown 3-28 00:00: 00 Dose 2022-0 No Unknown 3-28 00:00: 00 Dose 2022-0 No Unknown 3-28 00:00: 00 Dose 2022-0 No Unknown 3-28 00:00: 00 Dose 2022-0 No Unknown 3-28 00:00: 00 Dose 2022-0 No Unknown 3-28 00:00: 00 Dose 2022-0 No Unknown 3-28 00:00: 00 Dose 2022-0 No Unknown 3-28 00:00: 00 Dose 2022-0 No Unknown 3-28 00:00: 00 Dose 2022-0 No Unknown 3-28 00:00: 00 Dose 2022-0 No Unknown 3-28 00:00: 00 Dose 2022-0 No Unknown 3-28 00:00: 00 Dose 2022-0 No Unknown 3-28 00:00: 00 Dose 2022-0 No Unknown 3-28 00:00: 00 Dose 2022-0 No Unknown 3-28 00:00: 00 Dose 2022-0 No Unknown 3-28 00:00: 00 Dose 2022-0 No Unknown 3-28 00:00: 00 Dose 2022-0 No Unknown 3-28 00:00: 00 Dose 2022-0 No Unknown 3-28 00:00: 00 Dose 2022-0 No Unknown 3-28 00:00: 00 Dose 2022-0 No Unknown 3-28 00:00: 00 Dose 2022-0 No Unknown 3-28 00:00: 00 Dose 2022-0 No Unknown 3-28 00:00: 00 Dose 2022-0 No Unknown 3-28 00:00: 00 Dose 2022-0 No Unknown 3-28 00:00: 00 Dose 2022-0 No Unknown 3-28 00:00: 00 Dose 2022-0 No Unknown 3-28 00:00: 00 Dose 2022-0 No Unknown 3-28 00:00: 00 Dose 2022-0 No Unknown 3-28 00:00: 00 Dose 2022-0 No Unknown 3-28 00:00: 00 Dose 2022-0 No Unknown 3-28 00:00: 00 Dose 2022-0 No Unknown 3-28 00:00: 00 Dose 2022-0 No Unknown 3-28 00:00: 00 Dose 2022-0 No Unknown 3-28 00:00: 00 Dose 2022-0 No Unknown 3-28 00:00: 00 Dose 2022-0 No Unknown 3-28 00:00: 00 Dose 2022-0 No Unknown 3-28 00:00: 00 Dose 2022-0 No Unknown 3-28 00:00: 00 Dose 2022-0 No Unknown 3-28 00:00: 00 Dose 2022-0 No Unknown 3-28 00:00: 00 Dose 2022-0 No Unknown 3-28 00:00: 00 Dose 2022-0 No Unknown 3-28 00:00: 00 Dose 2022-0 No Unknown 3-28 00:00: 00 Dose 2022-0 No Unknown 3-28 00:00: 00 Dose 2022-0 No Unknown 3-28 00:00: 00 Dose 2022-0 No Unknown 3-28 00:00: 00 Dose 2022-0 No Unknown 3-28 00:00: 00 Dose 2022-0 No Unknown 3-28 00:00: 00 Dose 2022-0 No Unknown 3-28 00:00: 00 Dose 2022-0 No Unknown 3-28 00:00: 00 Dose 2022-0 No Unknown 3-28 00:00: 00 Dose 2022-0 No Unknown 3-28 00:00: 00 Dose 2022-0 No Unknown 3-28 00:00: 00 Dose 2022-0 No Unknown 3-28 00:00: 00 Dose 2022-0 No Unknown 3-28 00:00: 00 Dose 2022-0 No Unknown 3-28 00:00: 00 Dose 2022-0 No Unknown 3-28 00:00: 00 Dose 2022-0 No Unknown 3-28 00:00: 00 Dose 2022-0 No Unknown 3-28 00:00: 00 Dose 2022-0 No Unknown 3-28 00:00: 00 Dose 2022-0 No Unknown 3-28 00:00: 00 Dose 2022-0 No Unknown 3-28 00:00: 00 Dose 2022-0 No Unknown 3-28 00:00: 00 Dose 2022-0 No Unknown 3-28 00:00: 00 Dose 2022-0 No Unknown 3-28 00:00: 00 Dose 2022-0 No Unknown 3-28 00:00: 00 Dose 2022-0 No Unknown 3-28 00:00: 00 Dose 2022-0 No Unknown 3-28 00:00: 00 Dose 2022-0 No Unknown 3-28 00:00: 00 Dose 2022-0 No Unknown 3-28 00:00: 00 Dose 2022-0 No Unknown 3-28 00:00: 00 Dose 2022-0 No Unknown 3-28 00:00: 00 Dose 2022-0 No Unknown 3-28 00:00: 00 Dose 2022-0 No Unknown 3-28 00:00: 00 Dose 2022-0 No Unknown 3-28 00:00: 00 Dose 2022-0 No Unknown 3-28 00:00: 00 Dose 2022-0 No Unknown 3-28 00:00: 00 Dose 2022-0 No Unknown 3-28 00:00: 00 Dose 2022-0 No Unknown 3-28 00:00: 00 Dose 2022-0 No Unknown 3-28 00:00: 00 Dose 2022-0 No Unknown 3-28 00:00: 00 Dose 2022-0 No Unknown 3-28 00:00: 00 Dose 2022-0 No Unknown 3-28 00:00: 00 Dose 2022-0 No Unknown 3-28 00:00: 00 Dose 2022-0 No Unknown 3-28 00:00: 00 Dose 2022-0 No Unknown 3-28 00:00: 00 Dose 2022-0 No Unknown 3-28 00:00: 00 Dose 2022-0 No Unknown 3-28 00:00: 00 Dose 2022-0 No Unknown 3-28 00:00: 00 Dose 2022-0 No Unknown 3-28 00:00: 00 Dose 2022-0 No Unknown 3-28 00:00: 00 Dose 2022-0 No Unknown 3-28 00:00: 00 Dose 2022-0 No Unknown 3-28 00:00: 00 Dose 2022-0 No Unknown 3-28 00:00: 00 Dose 2022-0 No Unknown 3-28 00:00: 00 Dose 2022-0 No Unknown 3-28 00:00: 00 Dose 2022-0 No Unknown 3-28 00:00: 00 Dose 2022-0 No Unknown 3-28 00:00: 00 Dose 2022-0 No Unknown 3-28 00:00: 00 Dose 2022-0 No Unknown 3-28 00:00: 00 Dose 2022-0 No Unknown 3-28 00:00: 00 Dose 2022-0 No Unknown 3-28 00:00: 00 Dose 2022-0 No Unknown 3-28 00:00: 00 Dose 2022-0 No Unknown 3-28 00:00: 00 Dose 2022-0 No Unknown 3-28 00:00: 00 Dose 2022-0 No Unknown 3-28 00:00: 00 Dose 2022-0 No Unknown 3-28 00:00: 00 Dose 2022-0 No Unknown 3-28 00:00: 00 Dose 2022-0 No Unknown 3-28 00:00: 00 Dose 2022-0 No Unknown 3-28 00:00: 00 Dose 2022-0 No Unknown 3-28 00:00: 00 Dose 2022-0 No Unknown 3-28 00:00: 00 Dose 2022-0 No Unknown 3-28 00:00: 00 Dose 2022-0 No Unknown 3-28 00:00: 00 Dose 2022-0 No Unknown 3-28 00:00: 00 Dose 2022-0 No Unknown 3-28 00:00: 00 Dose 2022-0 No Unknown 3-28 00:00: 00 Dose 2022-0 No Unknown 3-28 00:00: 00 Dose 2022-0 No Unknown 3-28 00:00: 00 Dose 2022-0 No Unknown 3-28 00:00: 00 Dose 2022-0 No Unknown 3-28 00:00: 00 Dose 2022-0 No Unknown 3-28 00:00: 00 Dose 2022-0 No Unknown 3-28 00:00: 00 Dose 2022-0 No Unknown 3-28 00:00: 00 Dose 2022-0 No Unknown 3-28 00:00: 00 Dose 2022-0 No Unknown 3-28 00:00: 00 Dose 2022-0 No Unknown 3-28 00:00: 00 Dose 2022-0 No Unknown 3-28 00:00: 00 Dose 2022-0 No Unknown 3-28 00:00: 00 Dose 2022-0 No Unknown 3-28 00:00: 00 Dose 2022-0 No Unknown 3-28 00:00: 00 Dose 2022-0 No Unknown 3-28 00:00: 00 Dose 2022-0 No Unknown 3-28 00:00: 00 Dose 2022-0 No Unknown 3-28 00:00: 00 Dose 2022-0 No Unknown 3-28 00:00: 00 Dose 2022-0 No Unknown 3-28 00:00: 00 Dose 2022-0 No Unknown 3-28 00:00: 00 Dose 2022-0 No Unknown 3-28 00:00: 00 Dose 2022-0 No Unknown 3-28 00:00: 00 Dose 2022-0 No Unknown 3-28 00:00: 00 Dose 2022-0 No Unknown 3-28 00:00: 00 Dose 2022-0 No Unknown 3-28 00:00: 00 Dose 2022-0 No Unknown 3-28 00:00: 00 Dose 2022-0 No Unknown 3-28 00:00: 00 Dose 2022-0 No Unknown 3-28 00:00: 00 Dose 2022-0 No Unknown 3-28 00:00: 00 Dose 2022-0 No Unknown 3-28 00:00: 00 Dose 2022-0 No Unknown 3-28 00:00: 00 Dose 2022-0 No Unknown 3-28 00:00: 00 Dose 2022-0 No Unknown 3-28 00:00: 00 Dose 2022-0 No Unknown 3-28 00:00: 00 Dose 2022-0 No Unknown 3-28 00:00: 00 Dose 2022-0 No Unknown 3-28 00:00: 00 Dose 2022-0 No Unknown 3-28 00:00: 00 Dose 2022-0 No Unknown 3-28 00:00: 00 Dose 2022-0 No Unknown 3-28 00:00: 00 Dose 2022-0 No Unknown 3-28 00:00: 00 Dose 2022-0 No Unknown 3-28 00:00: 00 Dose 2022-0 No Unknown 3-28 00:00: 00 Dose 2022-0 No Unknown 3-28 00:00: 00 Dose 2022-0 No Unknown 3-28 00:00: 00 Dose 2022-0 No Unknown 3-28 00:00: 00 Dose 2022-0 No Unknown 3-28 00:00: 00 Dose 2022-0 No Unknown 3-28 00:00: 00 Dose 2022-0 No Unknown 3-28 00:00: 00 Dose 2022-0 No Unknown 3-28 00:00: 00 Dose 2022-0 No Unknown 3-28 00:00: 00 Dose 2022-0 No Unknown 3-28 00:00: 00 Dose 2022-0 No Unknown 3-28 00:00: 00 Dose 2022-0 No Unknown 3-28 00:00: 00 Dose 2022-0 No Unknown 3-28 00:00: 00 Dose 2022-0 No Unknown 3-28 00:00: 00 Dose 2022-0 No Unknown 3-28 00:00: 00 Dose 2022-0 No Unknown 3-28 00:00: 00 Dose 2022-0 No Unknown 3-28 00:00: 00 Dose 2022-0 No Unknown 3-28 00:00: 00 Dose 2022-0 No Unknown 3-28 00:00: 00 Dose 2022-0 No Unknown 3-28 00:00: 00 Dose 2022-0 No Unknown 3-28 00:00: 00 Dose 2022-0 No Unknown 3-28 00:00: 00 Dose 2022-0 No Unknown 3-28 00:00: 00 Dose 2022-0 No Unknown 3-28 00:00: 00 Dose 2022-0 No Unknown 3-28 00:00: 00 Dose 2022-0 No Unknown 3-28 00:00: 00 Dose 2022-0 No Unknown 3-28 00:00: 00 Dose 2022-0 No Unknown 3-28 00:00: 00 Dose 2022-0 No Unknown 3-28 00:00: 00 Dose 2022-0 No Unknown 3-28 00:00: 00 Dose 2022-0 No Unknown 3-28 00:00: 00 Dose 2022-0 No Unknown 3-28 00:00: 00 Dose 2022-0 No Unknown 3-28 00:00: 00 Dose 2022-0 No Unknown 3-28 00:00: 00 Dose 2022-0 No Unknown 3-28 00:00: 00 Dose 2022-0 No Unknown 3-28 00:00: 00 Dose 2022-0 No Unknown 3-28 00:00: 00 Dose 2022-0 No Unknown 3-28 00:00: 00 Dose 2022-0 No Unknown 3-28 00:00: 00 Dose 2022-0 No Unknown 3-28 00:00: 00 Dose 2022-0 No Unknown 3-28 00:00: 00 Dose 2022-0 No Unknown 3-28 00:00: 00 Dose 2022-0 No Unknown 3-28 00:00: 00 Dose 2022-0 No Unknown 3-28 00:00: 00 Dose 2022-0 No Unknown 3-28 00:00: 00 Dose 2022-0 No Unknown 3-28 00:00: 00 Dose 2022-0 No Unknown 3-28 00:00: 00 Dose 2022-0 No Unknown 3-28 00:00: 00 Dose 2022-0 No Unknown 3-28 00:00: 00 Dose 2022-0 No Unknown 3-28 00:00: 00 Dose 2022-0 No Unknown 3-28 00:00: 00 Dose 2022-0 No Unknown 3-28 00:00: 00 Dose 2022-0 No Unknown 3-28 00:00: 00 Dose 2022-0 No Unknown 3-28 00:00: 00 Dose 2022-0 No Unknown 3-28 00:00: 00 Dose 2022-0 No Unknown 3-28 00:00: 00 Dose 2022-0 No Unknown 3-28 00:00: 00 Dose 2022-0 No Unknown 3-28 00:00: 00 Dose 2022-0 No Unknown 3-28 00:00: 00 Dose 2022-0 No Unknown 3-28 00:00: 00 Dose 2022-0 No Unknown 3-28 00:00: 00 Dose 2022-0 No Unknown 3-28 00:00: 00 Dose 2022-0 No Unknown 3-28 00:00: 00 Dose 2022-0 No Unknown 3-28 00:00: 00 Dose 2022-0 No Unknown 3-28 00:00: 00 Dose 2022-0 No Unknown 3-28 00:00: 00 Dose 2022-0 No Unknown 3-28 00:00: 00 Dose 2022-0 No Unknown 3-28 00:00: 00 Dose 2022-0 No Unknown 3-28 00:00: 00 Dose 2022-0 No Unknown 3-28 00:00: 00 Dose 2022-0 No Unknown 3-28 00:00: 00 Dose 2022-0 No Unknown 3-28 00:00: 00 Dose 2022-0 No Unknown 3-28 00:00: 00 Dose 2022-0 No Unknown 3-28 00:00: 00 Dose 2022-0 No Unknown 3-28 00:00: 00 Dose 2022-0 No Unknown 3-28 00:00: 00 Dose 2022-0 No Unknown 3-28 00:00: 00 Dose 2022-0 No Unknown 3-28 00:00: 00 Dose 2022-0 No Unknown 3-28 00:00: 00 Dose 2022-0 No Unknown 3-28 00:00: 00 Dose 2022-0 No Unknown 3-28 00:00: 00 Dose 2022-0 No Unknown 3-28 00:00: 00 Dose 2022-0 No Unknown 3-28 00:00: 00 Dose 2022-0 No Unknown 3-28 00:00: 00 Dose 2022-0 No Unknown 3-28 00:00: 00 Dose 2022-0 No Unknown 3-28 00:00: 00 Dose 2022-0 No Unknown 3-28 00:00: 00 Dose 2022-0 No Unknown 3-28 00:00: 00 Dose 2022-0 No Unknown 3-28 00:00: 00 Dose 2022-0 No Unknown 3-28 00:00: 00 Dose 2022-0 No Unknown 3-28 00:00: 00 Dose 2022-0 No Unknown 3-28 00:00: 00 Dose 2022-0 No Unknown 3-28 00:00: 00 Dose 2022-0 No Unknown 3-28 00:00: 00 Dose 2022-0 No Unknown 3-28 00:00: 00 Dose 2022-0 No Unknown 3-28 00:00: 00 Dose 2022-0 No Unknown 3-28 00:00: 00 Dose 2022-0 No Unknown 3-28 00:00: 00 Dose 2022-0 No Unknown 3-28 00:00: 00 Dose 2022-0 No Unknown 3-28 00:00: 00 Dose 2022-0 No Unknown 3-28 00:00: 00 Dose 2022-0 No Unknown 3-28 00:00: 00 Dose 2022-0 No Unknown 3-28 00:00: 00 Dose 2022-0 No Unknown 3-28 00:00: 00 Dose 2022-0 No Unknown 3-28 00:00: 00 Dose 2022-0 No Unknown 3-28 00:00: 00 Dose 2022-0 No Unknown 3-28 00:00: 00 Dose 2022-0 No Unknown 3-28 00:00: 00 Dose 2022-0 No Unknown 3-28 00:00: 00 Dose 2022-0 No Unknown 3-28 00:00: 00 Dose 2022-0 No Unknown 3-28 00:00: 00 Dose 2022-0 No Unknown 3-28 00:00: 00 Dose 2022-0 No Unknown 3-28 00:00: 00 Dose 2022-0 No Unknown 3-28 00:00: 00 Dose 2022-0 No Unknown 3-28 00:00: 00 Dose 2022-0 No Unknown 3-28 00:00: 00 Dose 2022-0 No Unknown 3-28 00:00: 00 Dose 2022-0 No Unknown 3-28 00:00: 00 Dose 2022-0 No Unknown 3-28 00:00: 00 Dose 2022-0 No Unknown 3-28 00:00: 00 Dose 2022-0 No Unknown 3-28 00:00: 00 Dose 2022-0 No Unknown 3-28 00:00: 00 Dose 2022-0 No Unknown 3-28 00:00: 00 Dose 2022-0 No Unknown 3-28 00:00: 00 Dose 2022-0 No Unknown 3-28 00:00: 00 Dose 2022-0 No Unknown 3-28 00:00: 00 Dose 2022-0 No Unknown 3-28 00:00: 00 Dose 2022-0 No Unknown 3-28 00:00: 00 Dose 2022-0 No Unknown 3-28 00:00: 00 Dose 2022-0 No Unknown 3-28 00:00: 00 Dose 2022-0 No Unknown 3-28 00:00: 00 Dose 2022-0 No Unknown 3-28 00:00: 00 Dose 2022-0 No Unknown 3-28 00:00: 00 Dose 2022-0 No Unknown 3-28 00:00: 00 Dose 2022-0 No Unknown 3-28 00:00: 00 Dose 2022-0 No Unknown 3-28 00:00: 00 Dose 2022-0 No Unknown 3-28 00:00: 00 Dose 2022-0 No Unknown 3-28 00:00: 00 Dose 2022-0 No Unknown 3-28 00:00: 00 Dose 2022-0 No Unknown 3-28 00:00: 00 Dose 2022-0 No Unknown 3-28 00:00: 00 Dose 2022-0 No Unknown 3-28 00:00: 00 Dose 2022-0 No Unknown 3-28 00:00: 00 Dose 2022-0 No Unknown 3-28 00:00: 00 Dose 2022-0 No Unknown 3-28 00:00: 00 Dose 2022-0 No Unknown 3-28 00:00: 00 Dose 2022-0 No Unknown 3-28 00:00: 00 Dose 2022-0 No Unknown 3-28 00:00: 00 Dose 2022-0 No Unknown 3-28 00:00: 00 Dose 2022-0 No Unknown 3-28 00:00: 00 Dose 2022-0 No Unknown 3-28 00:00: 00 Dose 2022-0 No Unknown 3-28 00:00: 00 Dose 2022-0 No Unknown 3-28 00:00: 00 Dose 2022-0 No Unknown 3-28 00:00: 00 Dose 2022-0 No Unknown 3-28 00:00: 00 Dose 2022-0 No Unknown 3-28 00:00: 00 Dose 2022-0 No Unknown 3-28 00:00: 00 Dose 2022-0 No Unknown 3-28 00:00: 00 Dose 2022-0 No Unknown 3-28 00:00: 00 Dose 2022-0 No Unknown 3-28 00:00: 00 Dose 2022-0 No Unknown 3-28 00:00: 00 Dose 2022-0 No Unknown 3-28 00:00: 00 Dose 2022-0 No Unknown 3-28 00:00: 00 Dose 2022-0 No Unknown 3-28 00:00: 00 Dose 2022-0 No Unknown 3-28 00:00: 00 Dose 2022-0 No Unknown 3-28 00:00: 00 Dose 2022-0 No Unknown 3-28 00:00: 00 Dose 2022-0 No Unknown 3-28 00:00: 00 Dose 2022-0 No Unknown 3-28 00:00: 00 Dose 2022-0 No Unknown 3-28 00:00: 00 Dose 2022-0 No Unknown 3-28 00:00: 00 Dose 2022-0 No Unknown 3-28 00:00: 00 Dose 2022-0 No Unknown 3-28 00:00: 00 Dose 2022-0 No Unknown 3-28 00:00: 00 Dose 2022-0 No Unknown 3-28 00:00: 00 Dose 2022-0 No Unknown 3-28 00:00: 00 Dose 2022-0 No Unknown 3-28 00:00: 00 Dose 2022-0 No Unknown 3-28 00:00: 00 Dose 2022-0 No Unknown 3-28 00:00: 00 Dose 2022-0 No Unknown 3-28 00:00: 00 Dose 2022-0 No Unknown 3-28 00:00: 00 Dose 2022-0 No Unknown 3-28 00:00: 00 Dose 2022-0 No Unknown 3-28 00:00: 00 Dose 2022-0 No Unknown 3-28 00:00: 00 Dose 2022-0 No Unknown 3-28 00:00: 00 Dose 2022-0 No Unknown 3-28 00:00: 00 Dose 2022-0 No Unknown 3-28 00:00: 00 Dose 2022-0 No Unknown 3-28 00:00: 00 Dose 2022-0 No Unknown 3-28 00:00: 00 Dose 2022-0 No Unknown 3-28 00:00: 00 Dose 2022-0 No Unknown 3-28 00:00: 00 Dose 2022-0 No Unknown 3-28 00:00: 00 Dose 2022-0 No Unknown 3-28 00:00: 00 Dose 2022-0 No Unknown 3-28 00:00: 00 Dose 2022-0 No Unknown 3-28 00:00: 00 Dose 2022-0 No Unknown 3-28 00:00: 00 Dose 2022-0 No Unknown 3-28 00:00: 00 Dose 2022-0 No Unknown 3-28 00:00: 00 Dose 2022-0 No Unknown 3-28 00:00: 00 Dose 2022-0 No Unknown 3-28 00:00: 00 Dose 2022-0 No Unknown 3-28 00:00: 00 Dose 2022-0 No Unknown 3-28 00:00: 00 Dose 2022-0 No Unknown 3-28 00:00: 00 Dose 2022-0 No Unknown 3-28 00:00: 00 Dose 2022-0 No Unknown 3-28 00:00: 00 Dose 2022-0 No Unknown 3-28 00:00: 00 Dose 2022-0 No Unknown 3-28 00:00: 00 Dose 2022-0 No Unknown 3-28 00:00: 00 Dose 2022-0 No Unknown 3-28 00:00: 00 Dose 2022-0 No Unknown 3-28 00:00: 00 Dose 2022-0 No Unknown 3-28 00:00: 00 Dose 2022-0 No Unknown 3-28 00:00: 00 Dose 2022-0 No Unknown 3-28 00:00: 00 Dose 2022-0 No Unknown 3-28 00:00: 00 Dose 2022-0 No Unknown 3-28 00:00: 00 Dose 2022-0 No Unknown 3-28 00:00: 00 Dose 2022-0 No Unknown 3-28 00:00: 00 Dose 2022-0 No Unknown 3-28 00:00: 00 Dose 2022-0 No Unknown 3-28 00:00: 00 Dose 2022-0 No Unknown 3-28 00:00: 00 Dose 2022-0 No Unknown 3-28 00:00: 00 Dose 2022-0 No Unknown 3-28 00:00: 00 Dose 2022-0 No Unknown 3-28 00:00: 00 Dose 2022-0 No Unknown 3-28 00:00: 00 Dose 2022-0 No Unknown 3-28 00:00: 00 Dose 2022-0 No Unknown 3-28 00:00: 00 Dose 2022-0 No Unknown 3-28 00:00: 00 Dose 2022-0 No Unknown 3-28 00:00: 00 Dose 2022-0 No Unknown 3-28 00:00: 00 Dose 2022-0 No Unknown 3-28 00:00: 00 Dose 2022-0 No Unknown 3-28 00:00: 00 Dose 2022-0 No Unknown 3-28 00:00: 00 Dose 2022-0 No Unknown 3-28 00:00: 00 Dose 2022-0 No Unknown 3-28 00:00: 00 Dose 2022-0 No Unknown 3-28 00:00: 00 Dose 2022-0 No Unknown 3-28 00:00: 00 Dose 2022-0 No Unknown 3-28 00:00: 00 Dose 2022-0 No Unknown 3-28 00:00: 00 Dose 2022-0 No Unknown 3-28 00:00: 00 Dose 2022-0 No Unknown 3-28 00:00: 00 Dose 2022-0 No Unknown 3-28 00:00: 00 Dose 2022-0 No Unknown 3-28 00:00: 00 Dose 2022-0 No Unknown 3-28 00:00: 00 Dose 2022-0 No Unknown 3-28 00:00: 00 Dose 2022-0 No Unknown 3-28 00:00: 00 Dose 2022-0 No Unknown 3-28 00:00: 00 Dose 2022-0 No Unknown 3-28 00:00: 00 Dose 2022-0 No Unknown 3-28 00:00: 00 Dose 2022-0 No Unknown 3-28 00:00: 00 Dose 2022-0 No Unknown 3-28 00:00: 00 Dose 2022-0 No Unknown 3-28 00:00: 00 Dose 2022-0 No Unknown 3-28 00:00: 00 Dose 2022-0 No Unknown 3-28 00:00: 00 Dose 2022-0 No Unknown 3-28 00:00: 00 Dose 2022-0 No Unknown 3-28 00:00: 00 Dose 2022-0 No Unknown 3-28 00:00: 00 Dose 2022-0 No Unknown 3-28 00:00: 00 Dose 2022-0 No Unknown 3-28 00:00: 00 Dose 2022-0 No Unknown 3-28 00:00: 00 Dose 2022-0 No Unknown 3-28 00:00: 00 Dose 2022-0 No Unknown 3-28 00:00: 00 Dose 2022-0 No Unknown 3-28 00:00: 00 Dose 2022-0 No Unknown 3-28 00:00: 00 Dose 2022-0 No Unknown 3-28 00:00: 00 Dose 2022-0 No Unknown 3-28 00:00: 00 Dose 2022-0 No Unknown 3-28 00:00: 00 Dose 2022-0 No Unknown 3-28 00:00: 00 Dose 2022-0 No Unknown 3-28 00:00: 00 Dose 2022-0 No Unknown 3-28 00:00: 00 Dose 2022-0 No Unknown 3-28 00:00: 00 Dose 2022-0 No Unknown 3-28 00:00: 00 Dose 2022-0 No Unknown 3-28 00:00: 00 Dose 2022-0 No Unknown 3-28 00:00: 00 Dose 2022-0 No Unknown 3-28 00:00: 00 Dose 2022-0 No Unknown 3-28 00:00: 00 Dose 2022-0 No Unknown 3-28 00:00: 00 Dose 2022-0 No Unknown 3-28 00:00: 00 Dose 2022-0 No Unknown 3-28 00:00: 00 Dose 2022-0 No Unknown 3-28 00:00: 00 Dose 2022-0 No Unknown 3-28 00:00: 00 Dose 2022-0 No Unknown 3-28 00:00: 00 Dose 2022-0 No Unknown 3-28 00:00: 00 Dose 2022-0 No Unknown 3-28 00:00: 00 Dose 2022-0 No Unknown 3-28 00:00: 00 Dose 2022-0 No Unknown 3-28 00:00: 00 Dose 2022-0 No Unknown 3-28 00:00: 00 Dose 2022-0 No Unknown 3-28 00:00: 00 Dose 2022-0 No Unknown 3-28 00:00: 00 Dose 2022-0 No Unknown 3-28 00:00: 00 Dose 2022-0 No Unknown 3-28 00:00: 00 Dose 2022-0 No Unknown 3-28 00:00: 00 Dose 2022-0 No Unknown 3-28 00:00: 00 Dose 2022-0 No Unknown 3-28 00:00: 00 Dose 2022-0 No Unknown 3-28 00:00: 00 Dose 2022-0 No Unknown 3-28 00:00: 00 Dose 2022-0 No Unknown 3-28 00:00: 00 Dose 2022-0 No Unknown 3-28 00:00: 00 Dose 2022-0 No Unknown 3-28 00:00: 00 Dose 2022-0 No Unknown 3-28 00:00: 00 Dose 2022-0 No Unknown 3-28 00:00: 00 Dose 2022-0 No Unknown 3-28 00:00: 00 Dose 2022-0 No Unknown 3-28 00:00: 00 Dose 2022-0 No Unknown 3-28 00:00: 00 Dose 2022-0 No Unknown 3-28 00:00: 00 Dose 2022-0 No Unknown 3-28 00:00: 00 Dose 2022-0 No Unknown 3-28 00:00: 00 Dose 2022-0 No Unknown 3-28 00:00: 00 Dose 2022-0 No Unknown 3-28 00:00: 00 Dose 2022-0 No Unknown 3-28 00:00: 00 Dose 2022-0 No Unknown 3-28 00:00: 00 Dose 2022-0 No Unknown 3-28 00:00: 00 Dose 2022-0 No Unknown 3-28 00:00: 00 Dose 2022-0 No Unknown 3-28 00:00: 00 Dose 2022-0 No Unknown 3-28 00:00: 00 Dose 2022-0 No Unknown 3-28 00:00: 00 Dose 2022-0 No Unknown 3-28 00:00: 00 Dose 2022-0 No Unknown 3-28 00:00: 00 Dose 2022-0 No Unknown 3-28 00:00: 00 Dose 2022-0 No Unknown 3-28 00:00: 00 Dose 2022-0 No Unknown 3-28 00:00: 00 Dose 2022-0 No Unknown 3-28 00:00: 00 Dose 2022-0 No Unknown 3-28 00:00: 00 Dose 2022-0 No Unknown 3-28 00:00: 00 Dose 2022-0 No Unknown 3-28 00:00: 00 Dose 2022-0 No Unknown 3-28 00:00: 00 Dose 2022-0 No Unknown 3-28 00:00: 00 Dose 2022-0 No Unknown 3-28 00:00: 00 Dose 2022-0 No Unknown 3-28 00:00: 00 Dose 2022-0 No Unknown 3-28 00:00: 00 Dose 2022-0 No Unknown 3-28 00:00: 00 Dose 2022-0 No Unknown 3-28 00:00: 00 Dose 2022-0 No Unknown 3-28 00:00: 00 Dose 2022-0 No Unknown 3-28 00:00: 00 Dose 2022-0 No Unknown 3-28 00:00: 00 Dose 2022-0 No Unknown 3-28 00:00: 00 Dose 2022-0 No Unknown 3-28 00:00: 00 Dose 2022-0 No Unknown 3-28 00:00: 00 Dose 2022-0 No Unknown 3-28 00:00: 00 Dose 2022-0 No Unknown 3-28 00:00: 00 Dose 2022-0 No Unknown 3-28 00:00: 00 Dose 2022-0 No Unknown 3-28 00:00: 00 Dose 2022-0 No Unknown 3-28 00:00: 00 Dose 2022-0 No Unknown 3-28 00:00: 00 Dose 2022-0 No Unknown 3-28 00:00: 00 Dose 2022-0 No Unknown 3-28 00:00: 00 Dose 2022-0 No Unknown 3-28 00:00: 00 Dose 2022-0 No Unknown 3-28 00:00: 00 Dose 2022-0 No Unknown 3-28 00:00: 00 Dose 2022-0 No Unknown 3-28 00:00: 00 Dose 2022-0 No Unknown 3-28 00:00: 00 Dose 2022-0 No Unknown 3-28 00:00: 00 Dose 2022-0 No Unknown 3-28 00:00: 00 Dose 2022-0 No Unknown 3-28 00:00: 00 Dose 2022-0 No Unknown 3-28 00:00: 00 Dose 2022-0 No Unknown 3-28 00:00: 00 Dose 2022-0 No Unknown 3-28 00:00: 00 Dose 2022-0 No Unknown 3-28 00:00: 00 Dose 2022-0 No Unknown 3-28 00:00: 00 Dose 2022-0 No Unknown 3-28 00:00: 00 Dose 2022-0 No Unknown 3-28 00:00: 00 Dose 2022-0 No Unknown 3-28 00:00: 00 Dose 2022-0 No Unknown 3-28 00:00: 00 Dose 2022-0 No Unknown 3-28 00:00: 00 Dose 2022-0 No Unknown 3-28 00:00: 00 Dose 2022-0 No Unknown 3-28 00:00: 00 Dose 2022-0 No Unknown 3-28 00:00: 00 Dose 2022-0 No Unknown 3-28 00:00: 00 Dose 2022-0 No Unknown 3-28 00:00: 00 Dose 2022-0 No Unknown 3-28 00:00: 00 Dose 2022-0 No Unknown 3-28 00:00: 00 Dose 2022-0 No Unknown 3-28 00:00: 00 Dose 2022-0 No Unknown 3-28 00:00: 00 Dose 2022-0 No Unknown 3-28 00:00: 00 Dose 2022-0 No Unknown 3-28 00:00: 00 Dose 2022-0 No Unknown 3-28 00:00: 00 Dose 2022-0 No Unknown 3-28 00:00: 00 Dose 2022-0 No Unknown 3-28 00:00: 00 Dose 2022-0 No Unknown 3-28 00:00: 00 Dose 2022-0 No Unknown 3-28 00:00: 00 Dose 2022-0 No Unknown 3-28 00:00: 00 Dose 2022-0 No Unknown 3-28 00:00: 00 Dose 2022-0 No Unknown 3-28 00:00: 00 Dose 2022-0 No Unknown 3-28 00:00: 00 Dose 2022-0 No Unknown 3-28 00:00: 00 Dose 2022-0 No Unknown 3-28 00:00: 00 Dose 2022-0 No Unknown 3-28 00:00: 00 Dose 2022-0 No Unknown 3-28 00:00: 00 Dose 2022-0 No Unknown 3-28 00:00: 00 Dose 2022-0 No Unknown 3-28 00:00: 00 Dose 2022-0 No Unknown 3-28 00:00: 00 Dose 2022-0 No Unknown 3-28 00:00: 00 Dose 2022-0 No Unknown 3-28 00:00: 00 Dose 2022-0 No Unknown 3-28 00:00: 00 Dose 2022-0 No Unknown 3-28 00:00: 00 Dose 2022-0 No Unknown 3-28 00:00: 00 Dose 2022-0 No Unknown 3-28 00:00: 00 Dose 2022-0 No Unknown 3-28 00:00: 00 Dose 2022-0 No Unknown 3-28 00:00: 00 Dose 2022-0 No Unknown 3-28 00:00: 00 Dose 2022-0 No Unknown 3-28 00:00: 00 Dose 2022-0 No Unknown 3-28 00:00: 00 Dose 2022-0 No Unknown 3-28 00:00: 00 Dose 2022-0 No Unknown 3-28 00:00: 00 Dose 2022-0 No Unknown 3-28 00:00: 00 Dose 2022-0 No Unknown 3-28 00:00: 00 Dose 2-0 No Unknown 3-28 00:00: 00 Dose 2-0 No Unknown 3-28 00:00: 00 Dose 2-0 No Unknown 3- 00:00: 00 Dose 2022-0 No Unknown 3- 00:00: 00 Dose 2022-0 No Unknown 3- 00:00: 00 Dose 2-0 No Unknown 3- 00:00: 00 Dose 2-0 No Unknown 3- 00:00: 00 Dose 2-0 No Unknown 3- 00:00: 00 Dose 2-0 No Unknown 3- 00:00: 00 Dose 2-0 No Unknown 3- 00:00: 00 Dose 2-0 No Unknown 3- 00:00: 00 Dose 2-0 No Unknown 3- 00:00: 00 Dose 2-0 No Unknown 3- 00:00: 00 Breo 2020-0 No 1mcg/do Ellipta 100 1-28 se mcg-25 00:00: mcg/dose 00 powder for inhalation Breo 2020-0 No 1mcg/do Ellipta 100 1-28 se mcg-25 00:00: mcg/dose 00 powder for inhalation Breo 2020-0 No 1mcg/do Ellipta 100 1-28 se mcg-25 00:00: mcg/dose 00 powder for inhalation Breo 2020-0 No 1mcg/do Ellipta 100 1-28 se mcg-25 00:00: mcg/dose 00 powder for inhalation Breo 2020-0 No 1mcg/do Ellipta 100 1-28 se mcg-25 00:00: mcg/dose 00 powder for inhalation Breo 2020-0 No 1mcg/do Ellipta 100 1-28 se mcg-25 00:00: mcg/dose 00 powder for inhalation Breo 2020-0 No 1mcg/do Ellipta 100 1-28 se mcg-25 00:00: mcg/dose 00 powder for inhalation Breo 2020-0 No 1mcg/do Ellipta 100 1-28 se mcg-25 00:00: mcg/dose 00 powder for inhalation Lunesta 3 2020-0 No 1mg mg tablet 1-27 00:00: 00 propranolol 2020-0 No 1mg 10 mg 1-27 tablet 00:00: 00 Lunesta 3 2020-0 No 1mg mg tablet -27 00:00: 00 propranolol 2020-0 No 1mg 10 mg 1-27 tablet 00:00: 00 Lunesta 3 2020-0 No 1mg mg tablet 27 00:00: 00 propranolol 2020-0 No 1mg 10 mg 1-27 tablet 00:00: 00 Lunesta 3 2020-0 No 1mg mg tablet 27 00:00: 00 propranolol 2020-0 No 1mg 10 mg 1-27 tablet 00:00: 00 Ativan 0.5 2020-0 No 1mg mg tablet -17 00:00: 00 Klonopin 2020-0 No 1mg 0.5 mg 1-17 tablet 00:00: 00 amitriptyli 2020-0 No 1mg ne 10 mg 1-17 tablet 00:00: 00 fluticasone 2020-0 No 1mcg/ac propionate 1-17 tuation 50 00:00: mcg/actuati 00 on nasal spray,suspe nsion omeprazole 2020-0 No 1mg 40 mg 1-17 capsule,del 00:00: ayed 00 release loratadine 2020-0 No 1mg 10 mg 1-17 capsule 00:00: 00 gabapentin 2020-0 No 1mg 300 mg 1-17 capsule 00:00: 00 biotin 2020-0 No 1mcg 2,500 mcg 1-17 capsule 00:00: 00 Flovent HFA 2020-0 No 2mcg/ac 110 1-17 tuation mcg/actuati 00:00: on aerosol 00 inhaler ProAir HFA 2020-0 No 2mcg/ac 90 1-17 tuation mcg/actuati 00:00: on aerosol 00 inhaler promethazin 2020-0 No 2mg e 12.5 mg 1-17 tablet 00:00: 00 Wellbutrin 2020-0 No 1mg XL 300 mg 1-17 24 hr 00:00: tablet, 00 extended release Ativan 0.5 2020-0 No 1mg mg tablet 1-17 00:00: 00 Klonopin 2020-0 No 1mg 0.5 mg 1-17 tablet 00:00: 00 amitriptyli 2020-0 No 1mg ne 10 mg 1-17 tablet 00:00: 00 fluticasone 2020-0 No 1mcg/ac propionate 1-17 tuation 50 00:00: mcg/actuati 00 on nasal spray,suspe nsion omeprazole 2020-0 No 1mg 40 mg 1-17 capsule,del 00:00: ayed 00 release loratadine 2020-0 No 1mg 10 mg 1-17 capsule 00:00: 00 gabapentin 2020-0 No 1mg 300 mg 1-17 capsule 00:00: 00 biotin 2020-0 No 1mcg 2,500 mcg 1-17 capsule 00:00: 00 Flovent HFA 2020-0 No 2mcg/ac 110 1-17 tuation mcg/actuati 00:00: on aerosol 00 inhaler ProAir HFA 2020-0 No 2mcg/ac 90 1-17 tuation mcg/actuati 00:00: on aerosol 00 inhaler promethazin 2020-0 No 2mg e 12.5 mg 1-17 tablet 00:00: 00 Wellbutrin 2020-0 No 1mg XL 300 mg 1-17 24 hr 00:00: tablet, 00 extended release Ativan 0.5 2020-0 No 1mg mg tablet 1-17 00:00: 00 Klonopin 2020-0 No 1mg 0.5 mg 1-17 tablet 00:00: 00 amitriptyli 2020-0 No 1mg ne 10 mg 1-17 tablet 00:00: 00 fluticasone 2020-0 No 1mcg/ac propionate 1-17 tuation 50 00:00: mcg/actuati 00 on nasal spray,suspe nsion omeprazole 2020-0 No 1mg 40 mg 1-17 capsule,del 00:00: ayed 00 release loratadine 2020-0 No 1mg 10 mg 1-17 capsule 00:00: 00 gabapentin 2020-0 No 1mg 300 mg 1-17 capsule 00:00: 00 biotin 2020-0 No 1mcg 2,500 mcg 1-17 capsule 00:00: 00 Flovent HFA 2020-0 No 2mcg/ac 110 1-17 tuation mcg/actuati 00:00: on aerosol 00 inhaler ProAir HFA 2020-0 No 2mcg/ac 90 1-17 tuation mcg/actuati 00:00: on aerosol 00 inhaler promethazin 2020-0 No 2mg e 12.5 mg 1-17 tablet 00:00: 00 Flovent HFA 2020-0 No 2mcg/ac 110 1-17 tuation mcg/actuati 00:00: on aerosol 00 inhaler ProAir HFA 2020-0 No 2mcg/ac 90 1-17 tuation mcg/actuati 00:00: on aerosol 00 inhaler promethazin 2020-0 No 2mg e 12.5 mg 1-17 tablet 00:00: 00 Wellbutrin 2020-0 No 1mg XL 300 mg 1-17 24 hr 00:00: tablet, 00 extended release Ativan 0.5 2020-0 No 1mg mg tablet 1-17 00:00: 00 Klonopin 2020-0 No 1mg 0.5 mg 1-17 tablet 00:00: 00 amitriptyli 2020-0 No 1mg ne 10 mg 1-17 tablet 00:00: 00 fluticasone 2020-0 No 1mcg/ac propionate 1-17 tuation 50 00:00: mcg/actuati 00 on nasal spray,suspe nsion omeprazole 2020-0 No 1mg 40 mg 1-17 capsule,del 00:00: ayed 00 release Wellbutrin 2020-0 No 1mg XL 300 mg 1-17 24 hr 00:00: tablet, 00 extended release loratadine 2020-0 No 1mg 10 mg 1-17 capsule 00:00: 00 gabapentin 2020-0 No 1mg 300 mg 1-17 capsule 00:00: 00 biotin 2020-0 No 1mcg 2,500 mcg 1-17 capsule 00:00: 00 Immunizations Ordered Immunization Filled Immunization Date Status Commen ts Source Name Name Influenza, injectable, 2022-06-07 Completed [facility] 00:00:00 Kidney, preservative-free, quadrivalent Influenza, injectable, 2022-06-07 Completed [facility] [place] [facility] 00:00:00 Kidney, preservative-free, quadrivalent Influenza, injectable, 2022-06-07 Completed [facility] 00:00:00 Kidney, preservative-free, quadrivalent Influenza, seasonal, 2020-05-04 Completed inj 00:00:00 Influenza, seasonal, 2020-05-04 Completed inj 00:00:00 Influenza, seasonal, 2020-05-04 Completed inj 00:00:00 Influenza, seasonal, 2020-05-04 Completed inj 00:00:00 Vital Signs Vital Name Observation Time Observation Value Comments Source BP Systolic 2022-06-07 13:28:00 133 mm[Hg] BP Diastolic 2022-06-07 13:28:00 92 mm[Hg] Weight Measured 2022-06-07 13:28:00 133.60 pounds Height Measured 2022-06-07 13:28:00 62.99 inches Body Temperature 2022-06-07 13:28:00 98.30 degrees Heart Rate 2022-06-07 13:28:00 82.00 /min Respiratory Rate 2022-06-07 13:28:00 BP Systolic 2022-04-05 08:26:00 105 mm[Hg] BP Diastolic 2022-04-05 08:26:00 75 mm[Hg] Weight Measured 2022-04-05 08:26:00 140.00 pounds Height Measured 2022-04-05 08:26:00 65.00 inches Body Temperature 2022-04-05 08:26:00 97.50 degrees Heart Rate 2022-04-05 08:26:00 85.00 /min Respiratory Rate 2022-04-05 08:26:00 BP Systolic 2022-02-13 15:03:00 115 mm[Hg] BP Diastolic 2022-02-13 15:03:00 80 mm[Hg] Weight Measured 2022-02-13 15:03:00 130.80 pounds Height Measured 2022-02-13 15:03:00 65.00 inches Body Temperature 2022-02-13 15:03:00 98.30 degrees Heart Rate 2022-02-13 15:03:00 91.00 /min Respiratory Rate 2022-02-13 15:03:00 BP Systolic 2021-11-14 14:57:00 120 mm[Hg] BP Diastolic 2021-11-14 14:57:00 81 mm[Hg] Weight Measured 2021-11-14 14:57:00 999.99 pounds Height Measured 2021-11-14 14:57:00 65.00 inches Body Temperature 2021-11-14 14:57:00 97.50 degrees Heart Rate 2021-11-14 14:57:00 112.00 /min Respiratory Rate 2021-11-14 14:57:00 BP Systolic 2019-09-15 10:24:00 114 mm[Hg] BP Diastolic 2019-09-15 10:24:00 75 mm[Hg] Weight Measured 2019-09-15 10:24:00 138.00 pounds Height Measured 2019-09-15 10:24:00 65.00 inches Body Temperature 2019-09-15 10:24:00 98.40 degrees Heart Rate 2019-09-15 10:24:00 96.00 /min Respiratory Rate 2019-09-15 10:24:00 Procedures This patient has no known procedures. Plan of Care Planned Activity Planned Date Details Comments Source Goal Plan of Care Note [code = 43042-7] Goal Plan of Care Note [code = 74468-8] Goal Plan of Care Note [code = 66801-1] Goal Plan of Care Note [code = 34322-3] Goal Plan of Care Note [code = 97441-8] Goal Plan of Care Note [code = 56761-7] Goal Plan of Care Note [code = 27928-0] Goal Plan of Care Note [code = 03493-1] Goal Plan of Care Note [code = 73158-3] Goal Plan of Care Note [code = 41301-8] Goal Plan of Care Note [code = 14190-2] Goal Plan of Care Note [code = 85976-5] Goal Plan of Care Note [code = 95343-8] Goal Plan of Care Note [code = 45674-4] Goal Plan of Care Note [code = 33072-7] Goal Plan of Care Note [code = 16337-8] Goal Plan of Care Note [code = 21125-9] Goal Plan of Care Note [code = 48352-4] Goal Plan of Care Note [code = 39400-7] Goal Plan of Care Note [code = 81583-3] Goal Plan of Care Note [code = 96522-0] Goal Plan of Care Note [code = 53255-8] Goal Plan of Care Note [code = 50861-9] Goal Plan of Care Note [code = 96131-2] Goal Plan of Care Note [code = 09301-5] Goal Plan of Care Note [code = 02406-4] Goal Plan of Care Note [code = 25163-5] Goal Plan of Care Note [code = 26547-7] Goal Plan of Care Note [code = 00560-6] Goal Plan of Care Note [code = 54531-7] Goal Plan of Care Note [code = 77370-2] Goal Plan of Care Note [code = 14398-6] Goal Plan of Care Note [code = 85918-2] Goal Plan of Care Note [code = 25091-9] Goal Plan of Care Note [code = 59074-1] Goal Plan of Care Note [code = 63931-8] Goal Plan of Care Note [code = 20613-7] Goal Plan of Care Note [code = 15576-7] Goal Plan of Care Note [code = 53584-0] Goal Plan of Care Note [code = 49413-6] Goal Plan of Care Note [code = 83909-1] Goal Plan of Care Note [code = 63676-7] Encounters Start End Encounter Admission Attending Care Care Encounter Source Date/Time Date/Time Type Type Clinicians Facility Department ID 2022-09-06 2022-09-06 Outpatient [facility] [id number] [place] 13:59:22 13:59:22 0118 F Rudy 2022-06-07 2022-06-07 Outpatient [facility] [id number] [place] 13:21:15 13:21:15 1019 F Rudy 2022-06-07 2022-06-07 Outpatient [id number] 00:00:00 00:00:00 Visit 0s18-38b7 h51-07r3-0 -865a-07a 65a-07a87c [id number] 2022-04-05 2022-04-05 Outpatient [id number] 00:00:00 00:00:00 Visit acfa-40c1 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 -9m8d-359 z1p-1873ox [id number] [id number] 2022-04-05 2022-04-05 Outpatient [id number] 00:00:00 00:00:00 Visit t64z-5ptp 39b-4eaf-8 -48y5-o6v 3u7-w3b11r 09cm403ra e998fb 2022-02-13 2022-02-13 Outpatient [id number]- [id number] 00:00:00 00:00:00 Visit 9w11-7rnp n35-6baz-9 -48y8-5ml 2u2-8buf78 [id number] Results Test Description Test Time Test Comments Results Result Comments Source HEMOGLOBIN A1c 2022-04-06 13:42:39 Test Item Value Reference Range Interpretation Comme nts HEMOGLOBIN A1c (test code = 5.4 % 4.2-5.6 UNLESS OTHERWISE INDICATED, ALL 70695) TESTING PERFORM ED ATCLINICAL PATHOLOGY [facility] [address] [place] [address] AUT[employer] MECHANIC: PRESTON KIM M.D. CLIA NUMBER [id number] CAP ACCREDITATION N O. [id number] COMPREHENSIVE METABOLIC [id number] 06:58:02 Test Item Value Reference Range Interpretation Comments GLUCOSE (test code = 85 MG/DL 70-99 2216) BUN (test code = 9 MG/DL 6-20 2207) CREATININE (test 0.96 MG/DL 0.60-1.30 code = 2214) eGFR (2020 CKD-EPI) 77 ML/MIN/1.73 >60 (test code = 94215) CALC BUN/CREAT (test 9 RATIO 6-28 code = 2235) SODIUM (test code = 141 MEQ/L 996-613 5751) POTASSIUM (test code 5.0 MEQ/L 3.5-5.4 = 222) CHLORIDE (test code 106 MEQ/L 95-107 = 2215) CARBON DIOXIDE (test 24 MEQ/L 19-31 code = 2206) CALCIUM (test code = 9.5 MG/DL 8.5-10.5 2208) PROTEIN, TOTAL (test 7.1 G/DL 6.1-8.3 code = 2229) ALBUMIN (test code = 4.2 G/DL 3.5-5.2 2200) CALC GLOBULIN (test 2.9 G/DL 1.9-3.7 code = 2240) CALC A/G RATIO (test 1.4 RATIO 1.0-2.6 code = 2234) BILIRUBIN, TOTAL <0.2 MG/DL See_Comment [Automated message] (test code = 2207) The syste m which generated this result transmit corona reference range : <=1.2. The refe rence range was not u sed to interpret th is result as normal/abnormal . ALKALINE PHOSPHATASE 66 U/L 40-112 (test code = 2204) AST (test code = 12 U/L 9-40 2217) ALT (test code = 13 U/L 5-40 2218) LIPID [id number] 06:58:02 Test Item Value Reference Range Interpretation Comments CHOLESTEROL (test 197 MG/DL <200 code = 2210) TRIGLYCERIDES (test 106 MG/DL <150 code = 2232) HDL CHOLESTEROL (test 57 MG/DL >39 code = 2220) CALC LDL CHOL (test 119 MG/DL <100 H NOTE: C ALCULATED LDL code = 2237) IS BASED ON LAURA-CALI METHOD WHICHINCLUDES ADJUSTABLE TRIGLYCERIDE:VL DL CHOLESTEROL RAT IO.THIS FACTOR VARIES B Y MEASURED TRIGLY CERIDE AND NON-HDLCHOL ESTEROL CONCENTRATIONS WITH INCREASED CALCU LATED LDL SEENIN HIGH ER TRIGLYCERIDE OR LOWER NON-HDL SPECIME NS. FOR MOREINFORMATION , SEE CLIENT ANNOUNCE MENT AT [email or web address] [email or web address] LDL/HDL 2.09 RATIO <3.22 (test code = 2238) COMPREHENSIVE METABOLIC [id number] 00:00:00 Test Item Value Reference Range Interpretation Comments GLUCOSE (test code = 2217) 85 MG/DL BUN (test code = 2208) 9 MG/DL CREATININE (test code = 2214) 0.96 MG/DL eGFR (2020 CKD-EPI) (test code 77 ML/MIN/1.73 = 66666) CALC BUN/CREAT (test code = 9 RATIO 2235) SODIUM (test code = 2231) 141 MEQ/L POTASSIUM (test code = 2228) 5.0 MEQ/L CHLORIDE (test code = 2215) 106 MEQ/L CARBON DIOXIDE (test code = 24 MEQ/L 2205) CALCIUM (test code = 2209) 9.5 MG/DL PROTEIN, TOTAL (test code = 7.1 G/DL 2228) ALBUMIN (test code = 2201) 4.2 G/DL CALC GLOBULIN (test code = 2.9 G/DL 2239) CALC A/G RATIO (test code = 1.4 RATIO 4) BILIRUBIN, TOTAL (test code = <0.2 MG/DL 2206) ALKALINE PHOSPHATASE (test 66 U/L code = 2204) AST (test code = 2218) 12 U/L ALT (test code = 2219) 13 U/L COMPREHENSIVE METABOLIC [id number] 00:00:00 Test Item Value Reference Range Interpretation Comments GLUCOSE (test code = 2217) 85 MG/DL BUN (test code = 2208) 9 MG/DL CREATININE (test code = 2214) 0.96 MG/DL eGFR (2020 CKD-EPI) (test code 77 ML/MIN/1.73 = 41959) CALC BUN/CREAT (test code = 9 RATIO 2235) SODIUM (test code = 2231) 141 MEQ/L POTASSIUM (test code = 2228) 5.0 MEQ/L CHLORIDE (test code = 2215) 106 MEQ/L CARBON DIOXIDE (test code = 24 MEQ/L 2205) CALCIUM (test code = 2209) 9.5 MG/DL PROTEIN, TOTAL (test code = 7.1 G/DL 2228) ALBUMIN (test code = 2201) 4.2 G/DL CALC GLOBULIN (test code = 2.9 G/DL 2239) CALC A/G RATIO (test code = 1.4 RATIO 2234) BILIRUBIN, TOTAL (test code = <0.2 MG/DL 2206) ALKALINE PHOSPHATASE (test 66 U/L code = 2204) AST (test code = 2218) 12 U/L ALT (test code = 2219) 13 U/L LIPID [id number] 00:00:00 Test Item Value Reference Range Interpretation Comments CHOLESTEROL (test code = 2210) 197 MG/DL TRIGLYCERIDES (test code = 2232) 106 MG/DL HDL CHOLESTEROL (test code = 2220) 57 MG/DL CALC LDL CHOL (test code = 2237) 119 MG/DL RISK RATIO LDL/HDL (test code = 2.09 RATIO 2238) LIPID [id number] 00:00:00 Test Item Value Reference Range Interpretation Comments CHOLESTEROL (test code = 2210) 197 MG/DL TRIGLYCERIDES (test code = 2232) 106 MG/DL HDL CHOLESTEROL (test code = 2220) 57 MG/DL CALC LDL CHOL (test code = 2237) 119 MG/DL RISK RATIO LDL/HDL (test code = 2.09 RATIO 2238) HEMOGLOBIN [id number] 00:00:00 Test Item Value Reference Range Interpretation Comments HEMOGLOBIN A1c (test code = 63045) 5.4 % HEMOGLOBIN [id number] 00:00:00 Test Item Value Reference Range Interpretation Comments HEMOGLOBIN A1c (test code = 72922) 5.4 % HEMOGLOBIN [id number] 00:00:00 Test Item Value Reference Range Interpretation Comments HEMOGLOBIN A1c (test code = 78524) 5.4 % COMPREHENSIVE METABOLIC [id number] 00:00:00 Test Item Value Reference Range Interpretation Comments GLUCOSE (test code = 2217) 85 MG/DL BUN (test code = 2208) 9 MG/DL CREATININE (test code = 2214) 0.96 MG/DL eGFR (2020 CKD-EPI) (test code 77 ML/MIN/1.73 = 10324) CALC BUN/CREAT (test code = 9 RATIO 2235) SODIUM (test code = 2231) 141 MEQ/L POTASSIUM (test code = 2228) 5.0 MEQ/L CHLORIDE (test code = 2215) 106 MEQ/L CARBON DIOXIDE (test code = 24 MEQ/L 2205) CALCIUM (test code = 2209) 9.5 MG/DL PROTEIN, TOTAL (test code = 7.1 G/DL 2228) ALBUMIN (test code = 2201) 4.2 G/DL CALC GLOBULIN (test code = 2.9 G/DL 0) CALC A/G RATIO (test code = 1.4 RATIO 4) BILIRUBIN, TOTAL (test code = <0.2 MG/DL 2206) ALKALINE PHOSPHATASE (test 66 U/L code = 2204) AST (test code = 2218) 12 U/L ALT (test code = 2219) 13 U/L COMPREHENSIVE METABOLIC [id number] 00:00:00 Test Item Value Reference Range Interpretation Comments GLUCOSE (test code = 2217) 85 MG/DL BUN (test code = 2208) 9 MG/DL CREATININE (test code = 2214) 0.96 MG/DL eGFR (2020 CKD-EPI) (test code 77 ML/MIN/1.73 = 71536) CALC BUN/CREAT (test code = 9 RATIO 2235) SODIUM (test code = 2231) 141 MEQ/L POTASSIUM (test code = 2228) 5.0 MEQ/L CHLORIDE (test code = 2215) 106 MEQ/L CARBON DIOXIDE (test code = 24 MEQ/L 220) CALCIUM (test code = 2209) 9.5 MG/DL PROTEIN, TOTAL (test code = 7.1 G/DL 2228) ALBUMIN (test code = 2201) 4.2 G/DL CALC GLOBULIN (test code = 2.9 G/DL 2239) CALC A/G RATIO (test code = 1.4 RATIO 2234) BILIRUBIN, TOTAL (test code = <0.2 MG/DL 2206) ALKALINE PHOSPHATASE (test 66 U/L code = 2204) AST (test code = 2218) 12 U/L ALT (test code = 2219) 13 U/L LIPID [id number] 00:00:00 Test Item Value Reference Range Interpretation Comments CHOLESTEROL (test code = 2210) 197 MG/DL TRIGLYCERIDES (test code = 2232) 106 MG/DL HDL CHOLESTEROL (test code = 2220) 57 MG/DL CALC LDL CHOL (test code = 2237) 119 MG/DL RISK RATIO LDL/HDL (test code = 2.09 RATIO 2238) LIPID [id number] 00:00:00 Test Item Value Reference Range Interpretation Comments CHOLESTEROL (test code = 2210) 197 MG/DL TRIGLYCERIDES (test code = 2232) 106 MG/DL HDL CHOLESTEROL (test code = 2220) 57 MG/DL CALC LDL CHOL (test code = 2237) 119 MG/DL RISK RATIO LDL/HDL (test code = 2.09 RATIO 2238) HEMOGLOBIN [id number] 00:00:00 Test Item Value Reference Range Interpretation Comments HEMOGLOBIN A1c (test code = 04575) 5.4 % HEMOGLOBIN [id number] 00:00:00 Test Item Value Reference Range Interpretation Comments HEMOGLOBIN A1c (test code = 25066) 5.4 % HEMOGLOBIN [id number] 00:00:00 Test Item Value Reference Range Interpretation Comments HEMOGLOBIN A1c (test code = 79675) 5.4 % COMPREHENSIVE METABOLIC [id number] 00:00:00 Test Item Value Reference Range Interpretation Comments GLUCOSE (test code = 2217) 85 MG/DL BUN (test code = 2208) 9 MG/DL CREATININE (test code = 2214) 0.96 MG/DL eGFR (2020 CKD-EPI) (test code 77 ML/MIN/1.73 = 74714) CALC BUN/CREAT (test code = 9 RATIO 2235) SODIUM (test code = 2231) 141 MEQ/L POTASSIUM (test code = 2228) 5.0 MEQ/L CHLORIDE (test code = 2215) 106 MEQ/L CARBON DIOXIDE (test code = 24 MEQ/L 2205) CALCIUM (test code = 2209) 9.5 MG/DL PROTEIN, TOTAL (test code = 7.1 G/DL 2228) ALBUMIN (test code = 2201) 4.2 G/DL CALC GLOBULIN (test code = 2.9 G/DL 2240) CALC A/G RATIO (test code = 1.4 RATIO 2234) BILIRUBIN, TOTAL (test code = <0.2 MG/DL 2206) ALKALINE PHOSPHATASE (test 66 U/L code = 2204) AST (test code = 2218) 12 U/L ALT (test code = 2219) 13 U/L COMPREHENSIVE METABOLIC [id number] 00:00:00 Test Item Value Reference Range Interpretation Comments GLUCOSE (test code = 2217) 85 MG/DL BUN (test code = 2208) 9 MG/DL CREATININE (test code = 2214) 0.96 MG/DL eGFR (2020 CKD-EPI) (test code 77 ML/MIN/1.73 = 43550) CALC BUN/CREAT (test code = 9 RATIO 2235) SODIUM (test code = 2231) 141 MEQ/L POTASSIUM (test code = 2228) 5.0 MEQ/L CHLORIDE (test code = 2215) 106 MEQ/L CARBON DIOXIDE (test code = 24 MEQ/L 2205) CALCIUM (test code = 2209) 9.5 MG/DL PROTEIN, TOTAL (test code = 7.1 G/DL 2228) ALBUMIN (test code = 2201) 4.2 G/DL CALC GLOBULIN (test code = 2.9 G/DL 2240) CALC A/G RATIO (test code = 1.4 RATIO 2234) BILIRUBIN, TOTAL (test code = <0.2 MG/DL 2206) ALKALINE PHOSPHATASE (test 66 U/L code = 2204) AST (test code = 2218) 12 U/L ALT (test code = 2219) 13 U/L LIPID [id number] 00:00:00 Test Item Value Reference Range Interpretation Comments CHOLESTEROL (test code = 2210) 197 MG/DL TRIGLYCERIDES (test code = 2232) 106 MG/DL HDL CHOLESTEROL (test code = 2220) 57 MG/DL CALC LDL CHOL (test code = 2237) 119 MG/DL RISK RATIO LDL/HDL (test code = 2.09 RATIO 2238) LIPID [id number] 00:00:00 Test Item Value Reference Range Interpretation Comments CHOLESTEROL (test code = 2210) 197 MG/DL TRIGLYCERIDES (test code = 2232) 106 MG/DL HDL CHOLESTEROL (test code = 2220) 57 MG/DL CALC LDL CHOL (test code = 2237) 119 MG/DL RISK RATIO LDL/HDL (test code = 2.09 RATIO 2238) HEMOGLOBIN [id number] 00:00:00 Test Item Value Reference Range Interpretation Comments HEMOGLOBIN A1c (test code = 96944) 5.4 % HEMOGLOBIN [id number] 00:00:00 Test Item Value Reference Range Interpretation Comments HEMOGLOBIN A1c (test code = 67092) 5.4 % HEMOGLOBIN [id number] 00:00:00 Test Item Value Reference Range Interpretation Comments HEMOGLOBIN A1c (test code = 03922) 5.4 % COMPREHENSIVE METABOLIC [id number] 00:00:00 Test Item Value Reference Range Interpretation Comments GLUCOSE (test code = 2217) 85 MG/DL BUN (test code = 2208) 9 MG/DL CREATININE (test code = 2214) 0.96 MG/DL eGFR (2020 CKD-EPI) (test code 77 ML/MIN/1.73 = 85029) CALC BUN/CREAT (test code = 9 RATIO 2235) SODIUM (test code = 2231) 141 MEQ/L POTASSIUM (test code = 2228) 5.0 MEQ/L CHLORIDE (test code = 2215) 106 MEQ/L CARBON DIOXIDE (test code = 24 MEQ/L 2205) CALCIUM (test code = 2209) 9.5 MG/DL PROTEIN, TOTAL (test code = 7.1 G/DL 2228) ALBUMIN (test code = 2201) 4.2 G/DL CALC GLOBULIN (test code = 2.9 G/DL 0) CALC A/G RATIO (test code = 1.4 RATIO 2234) BILIRUBIN, TOTAL (test code = <0.2 MG/DL 2206) ALKALINE PHOSPHATASE (test 66 U/L code = 2204) AST (test code = 2218) 12 U/L ALT (test code = 2219) 13 U/L COMPREHENSIVE METABOLIC [id number] 00:00:00 Test Item Value Reference Range Interpretation Comments GLUCOSE (test code = 2217) 85 MG/DL BUN (test code = 2208) 9 MG/DL CREATININE (test code = 2214) 0.96 MG/DL eGFR (2020 CKD-EPI) (test code 77 ML/MIN/1.73 = 36929) CALC BUN/CREAT (test code = 9 RATIO 2235) SODIUM (test code = 2231) 141 MEQ/L POTASSIUM (test code = 2228) 5.0 MEQ/L CHLORIDE (test code = 2215) 106 MEQ/L CARBON DIOXIDE (test code = 24 MEQ/L 2205) CALCIUM (test code = 2209) 9.5 MG/DL PROTEIN, TOTAL (test code = 7.1 G/DL 2228) ALBUMIN (test code = 2201) 4.2 G/DL CALC GLOBULIN (test code = 2.9 G/DL 2239) CALC A/G RATIO (test code = 1.4 RATIO 2233) BILIRUBIN, TOTAL (test code = <0.2 MG/DL 2206) ALKALINE PHOSPHATASE (test 66 U/L code = 2204) AST (test code = 2218) 12 U/L ALT (test code = 2219) 13 U/L LIPID [id number] 00:00:00 Test Item Value Reference Range Interpretation Comments CHOLESTEROL (test code = 2210) 197 MG/DL TRIGLYCERIDES (test code = 2232) 106 MG/DL HDL CHOLESTEROL (test code = 2220) 57 MG/DL CALC LDL CHOL (test code = 2237) 119 MG/DL RISK RATIO LDL/HDL (test code = 2.09 RATIO 2238) LIPID [id number] 00:00:00 Test Item Value Reference Range Interpretation Comments CHOLESTEROL (test code = 2210) 197 MG/DL TRIGLYCERIDES (test code = 2232) 106 MG/DL HDL CHOLESTEROL (test code = 2220) 57 MG/DL CALC LDL CHOL (test code = 2237) 119 MG/DL RISK RATIO LDL/HDL (test code = 2.09 RATIO 2238) HEMOGLOBIN [id number] 00:00:00 Test Item Value Reference Range Interpretation Comments HEMOGLOBIN A1c (test code = 67148) 5.4 % HEMOGLOBIN [id number] 00:00:00 Test Item Value Reference Range Interpretation Comments HEMOGLOBIN A1c (test code = 47967) 5.4 % HEMOGLOBIN [id number] 00:00:00 Test Item Value Reference Range Interpretation Comments HEMOGLOBIN A1c (test code = 55686) 5.4 % CBC W/AUTO DIFF WITH [id number] 14:22:31 Test Item Value Reference Range Interpretation Comments WBC (test code = 6.0 K/UL 3.5-11.0 1001) RBC (test code = 4.36 M/UL 3.80-5.40 1002) HEMOGLOBIN (test code 13.7 G/DL 11.5-15.5 = 1003) HEMATOCRIT (test code 40.3 % 34.0-45.0 = 1004) MCV (test code = 92.4 fL 80.0-99.0 1005) MCH (test code = 31.4 PG 25.0-33.0 1006) MCHC (test code = 34.0 G/DL 31.0-36.0 1007) RDW (test code = 11.9 % 11.5-15.0 1038) NEUTROPHILS (test 47.9 % code = 1008) LYMPHOCYTES (test 42.2 % code = 1010) MONOCYTES (test code 6.5 % = 1011) EOSINOPHILS (test 2.3 % code = 1012) BASOPHILS (test code 0.8 % = 1013) IMMATURE GRANULOCYTES 0.3 % (test code = 1036) NUCLEATED RBCS (test 0.0 /100 WBC'S See_Comment [Aut omated code = 1065) message] The sy stem which generated this result transmitted reference range : 0.0. The refere nce range was not u sed to interpret th is result as normal/abnormal . PLATELET COUNT (test 329 K/UL 130-400 code = 1015) ABSOLUTE NEUTROPHILS 2.85 K/UL 1.50-7.50 (test code = 1066) ABSOLUTE LYMPHOCYTES 2.52 K/UL 1.00-4.00 (test code = 1067) ABSOLUTE MONOCYTES 0.39 K/UL 0.20-1.00 (test code = 1068) ABSOLUTE EOSINOPHILS 0.14 K/UL 0.00-0.50 (test code = 1040) ABSOLUTE BASOPHILS 0.05 K/UL 0.00-0.20 (test code = 1069) ABS IMMATURE 0.02 K/UL 0.00-0.10 GRANULOCYTES (test code = 1020) ABS NUCLEATED RBCS 0.00 K/UL 0.00-0.11 (test code = 69658) VITAMIN D, 25 [id number] 06:37:02 Test Item Value Reference Range Interpretation Comments VITAMIN D, 25 OH 35 NG/ML SEE BELOW NOTE: 25-H YDROXYVITAMIN D (test code = 4958) ASSAY INC LUDES 25-HYDROXYVITAM IN D2 AND D3. METHODOLOGY IS CHEMILUMINESCEN T IMMUNOASSAY. INTERPRETIVE RA NGES PEDIATRIC (<17 YEARS) . . . . . . . . . . . NG/ML 20-100ADULT: IN SUFFICIENT . . . . . . . . . . . . . . NG/ML <20 SUBOP TIMAL . . . . . . . . . . . . . . . NG/ML 20-29 OPT IMAL . . . . . . . . . . . . . . . . . NG/ML 30-100 UN LESS OTHERWISE INDIC ATED, ALL TESTING PERFORM ED ATCLINICAL PATH OG LABORATORIES, [facility]. [address] [place] [id number] LAB[address]ORY DIRE CTOR: Albina CAMARGO. CLIA NUMBER [id number] CAP ACCREDITATION N O. [id number] VITAMIN [id number] 05:50:32 Test Item Value Reference Range Interpretation Comments VITAMIN B-12 (test code = 2840) >2000 PG/ML 200-950 H COMPREHENSIVE METABOLIC [id number] 04:56:00 Test Item Value Reference Range Interpretation Comments GLUCOSE (test code = 95 MG/DL 70-99 2216) BUN (test code = 7 MG/DL -20 2207) CREATININE (test 0.91 MG/DL 0.60-1.30 code = 2214) eGFR (2020 CKD-EPI) 82 ML/MIN/1.73 >60 (test code = 65980) CALC BUN/CREAT (test 8 RATIO 6-28 code = 2235) SODIUM (test code = 142 MEQ/L 403-044 2899) POTASSIUM (test code 4.5 MEQ/L 3.5-5.4 = 2227) CHLORIDE (test code 104 MEQ/L 95-107 = 2215) CARBON DIOXIDE (test 24 MEQ/L 19-31 code = 2206) CALCIUM (test code = 10.0 MG/DL 8.5-10.5 2208) PROTEIN, TOTAL (test 7.5 G/DL 6.1-8.3 code = 2229) ALBUMIN (test code = 4.7 G/DL 3.5-5.2 2200) CALC GLOBULIN (test 2.8 G/DL 1.9-3.7 code = 2240) CALC A/G RATIO (test 1.7 RATIO 1.0-2.6 code = 2234) BILIRUBIN, TOTAL 0.4 MG/DL See_Comment [Automated message] (test code = 2207) The syste m which generated this result transmit corona reference range : <=1.2. The refe rence range was not u sed to interpret th is result as normal/abnormal . ALKALINE PHOSPHATASE 76 U/L 40-112 (test code = 2204) AST (test code = 10 U/L 9-40 2217) ALT (test code = 6 U/L 5-40 2218) LIPID [id number] 04:56:00 Test Item Value Reference Range Interpretation Comments CHOLESTEROL (test 262 MG/DL <200 H code = 2210) TRIGLYCERIDES (test 113 MG/DL <150 code = 2232) HDL CHOLESTEROL (test 58 MG/DL >39 code = 2220) CALC LDL CHOL (test 180 MG/DL <100 H NOTE: C ALCULATED LDL code = 2237) IS BASED ON LAURA-CALI METHOD WHICHINCLUDES ADJUSTABLE TRIGLYCERIDE:VL DL CHOLESTEROL RAT IO.THIS FACTOR VARIES B Y MEASURED TRIGLY CERIDE AND NON-HDLCHOL ESTEROL CONCENTRATIONS WITH INCREASED CALCU LATED LDL SEENIN HIGH ER TRIGLYCERIDE OR LOWER NON-HDL SPECIME NS. FOR MOREINFORMATION , SEE CLIENT ANNOUNCE MENT AT [email or web address] RISK RATIO LDL/HDL 3.10 RATIO <3.22 (test code = 2238) VITAMIN [id number] 00:00:00 Test Item Value Reference Range Interpretation Comments VITAMIN B-12 (test code = 2840) >2000 PG/ML VITAMIN [id number] 00:00:00 Test Item Value Reference Range Interpretation Comments VITAMIN B-12 (test code = 2840) >2000 PG/ML VITAMIN D, 25 [id number] 00:00:00 Test Item Value Reference Range Interpretation Comments VITAMIN D, 25 OH (test code = 4958) 35 NG/ML VITAMIN D, 25 [id number] 00:00:00 Test Item Value Reference Range Interpretation Comments VITAMIN D, 25 OH (test code = 4958) 35 NG/ML COMPREHENSIVE METABOLIC [id number] 00:00:00 Test Item Value Reference Range Interpretation Comments GLUCOSE (test code = 2217) 95 MG/DL BUN (test code = 2208) 7 MG/DL CREATININE (test code = 2214) 0.91 MG/DL eGFR (2020 CKD-EPI) (test code 82 ML/MIN/1.73 = 78193) CALC BUN/CREAT (test code = 8 RATIO 2235) SODIUM (test code = 2231) 142 MEQ/L POTASSIUM (test code = 2228) 4.5 MEQ/L CHLORIDE (test code = 2215) 104 MEQ/L CARBON DIOXIDE (test code = 24 MEQ/L 2205) CALCIUM (test code = 2209) 10.0 MG/DL PROTEIN, TOTAL (test code = 7.5 G/DL 2228) ALBUMIN (test code = 2201) 4.7 G/DL CALC GLOBULIN (test code = 2.8 G/DL 2239) CALC A/G RATIO (test code = 1.7 RATIO 2233) BILIRUBIN, TOTAL (test code = 0.4 MG/DL 2206) ALKALINE PHOSPHATASE (test 76 U/L code = 2204) AST (test code = 2218) 10 U/L ALT (test code = 2219) 6 U/L COMPREHENSIVE METABOLIC [id number] 00:00:00 Test Item Value Reference Range Interpretation Comments GLUCOSE (test code = 2217) 95 MG/DL BUN (test code = 2208) 7 MG/DL CREATININE (test code = 2214) 0.91 MG/DL eGFR (2020 CKD-EPI) (test code 82 ML/MIN/1.73 = 74815) CALC BUN/CREAT (test code = 8 RATIO 2235) SODIUM (test code = 2231) 142 MEQ/L POTASSIUM (test code = 2228) 4.5 MEQ/L CHLORIDE (test code = 2215) 104 MEQ/L CARBON DIOXIDE (test code = 24 MEQ/L 220) CALCIUM (test code = 2209) 10.0 MG/DL PROTEIN, TOTAL (test code = 7.5 G/DL 2229) ALBUMIN (test code = 2201) 4.7 G/DL CALC GLOBULIN (test code = 2.8 G/DL 2240) CALC A/G RATIO (test code = 1.7 RATIO 2234) BILIRUBIN, TOTAL (test code = 0.4 MG/DL 2207) ALKALINE PHOSPHATASE (test 76 U/L code = 2204) AST (test code = 2218) 10 U/L ALT (test code = 2219) 6 U/L CBC W/AUTO [id number] 00:00:00 Test Item Value Reference Range Interpretation Comments WBC (test code = 1001) 6.0 K/UL RBC (test code = 1002) 4.36 M/UL HEMOGLOBIN (test code = 1003) 13.7 G/DL HEMATOCRIT (test code = 1004) 40.3 % MCV (test code = 1005) 92.4 fL MCH (test code = 1006) 31.4 PG MCHC (test code = 1007) 34.0 G/DL RDW (test code = 1038) 11.9 % NEUTROPHILS (test code = 1008) 47.9 % LYMPHOCYTES (test code = 1010) 42.2 % MONOCYTES (test code = 1011) 6.5 % EOSINOPHILS (test code = 1012) 2.3 % BASOPHILS (test code = 1013) 0.8 % IMMATURE GRANULOCYTES (test 0.3 % code = 1036) NUCLEATED RBCS (test code = 0.0 /100WBC'S 1065) PLATELET COUNT (test code = 329 K/UL 1015) ABSOLUTE NEUTROPHILS (test code 2.85 K/UL = 1066) ABSOLUTE LYMPHOCYTES (test code 2.52 K/UL = 1067) ABSOLUTE MONOCYTES (test code = 0.39 K/UL 1068) ABSOLUTE EOSINOPHILS (test code 0.14 K/UL = 1040) ABSOLUTE BASOPHILS (test code = 0.05 K/UL 1069) ABS IMMATURE GRANULOCYTES (test 0.02 K/UL code = 1020) ABS NUCLEATED RBCS (test code = 0.00 K/UL 09148) CBC W/AUTO [id number] 00:00:00 Test Item Value Reference Range Interpretation Comments WBC (test code = 1001) 6.0 K/UL RBC (test code = 1002) 4.36 M/UL HEMOGLOBIN (test code = 1003) 13.7 G/DL HEMATOCRIT (test code = 1004) 40.3 % MCV (test code = 1005) 92.4 fL MCH (test code = 1006) 31.4 PG MCHC (test code = 1007) 34.0 G/DL RDW (test code = 1038) 11.9 % NEUTROPHILS (test code = 1008) 47.9 % LYMPHOCYTES (test code = 1010) 42.2 % MONOCYTES (test code = 1011) 6.5 % EOSINOPHILS (test code = 1012) 2.3 % BASOPHILS (test code = 1013) 0.8 % IMMATURE GRANULOCYTES (test 0.3 % code = 1036) NUCLEATED RBCS (test code = 0.0 /100WBC'S 1065) PLATELET COUNT (test code = 329 K/UL 1015) ABSOLUTE NEUTROPHILS (test code 2.85 K/UL = 1066) ABSOLUTE LYMPHOCYTES (test code 2.52 K/UL = 1067) ABSOLUTE MONOCYTES (test code = 0.39 K/UL 1068) ABSOLUTE EOSINOPHILS (test code 0.14 K/UL = 1040) ABSOLUTE BASOPHILS (test code = 0.05 K/UL 1069) ABS IMMATURE GRANULOCYTES (test 0.02 K/UL code = 1020) ABS NUCLEATED RBCS (test code = 0.00 K/UL 41327) CBC W/AUTO [id number] 00:00:00 Test Item Value Reference Range Interpretation Comments WBC (test code = 1001) 6.0 K/UL RBC (test code = 1002) 4.36 M/UL HEMOGLOBIN (test code = 1003) 13.7 G/DL HEMATOCRIT (test code = 1004) 40.3 % MCV (test code = 1005) 92.4 fL MCH (test code = 1006) 31.4 PG MCHC (test code = 1007) 34.0 G/DL RDW (test code = 1038) 11.9 % NEUTROPHILS (test code = 1008) 47.9 % LYMPHOCYTES (test code = 1010) 42.2 % MONOCYTES (test code = 1011) 6.5 % EOSINOPHILS (test code = 1012) 2.3 % BASOPHILS (test code = 1013) 0.8 % IMMATURE GRANULOCYTES (test 0.3 % code = 1036) NUCLEATED RBCS (test code = 0.0 /100WBC'S 1065) PLATELET COUNT (test code = 329 K/UL 1015) ABSOLUTE NEUTROPHILS (test code 2.85 K/UL = 1066) ABSOLUTE LYMPHOCYTES (test code 2.52 K/UL = 1067) ABSOLUTE MONOCYTES (test code = 0.39 K/UL 1068) ABSOLUTE EOSINOPHILS (test code 0.14 K/UL = 1040) ABSOLUTE BASOPHILS (test code = 0.05 K/UL 1069) ABS IMMATURE GRANULOCYTES (test 0.02 K/UL code = 1020) ABS NUCLEATED RBCS (test code = 0.00 K/UL 50006) LIPID [id number] 00:00:00 Test Item Value Reference Range Interpretation Comments CHOLESTEROL (test code = 2210) 262 MG/DL TRIGLYCERIDES (test code = 2232) 113 MG/DL HDL CHOLESTEROL (test code = 2220) 58 MG/DL CALC LDL CHOL (test code = 2237) 180 MG/DL RISK RATIO LDL/HDL (test code = 3.10 RATIO 2238) LIPID [id number] 00:00:00 Test Item Value Reference Range Interpretation Comments CHOLESTEROL (test code = 2210) 262 MG/DL TRIGLYCERIDES (test code = 2232) 113 MG/DL HDL CHOLESTEROL (test code = 2220) 58 MG/DL CALC LDL CHOL (test code = 2237) 180 MG/DL RISK RATIO LDL/HDL (test code = 3.10 RATIO 2238) VITAMIN [id number] 00:00:00 Test Item Value Reference Range Interpretation Comments VITAMIN B-12 (test code = 2840) >2000 PG/ML VITAMIN [id number] 00:00:00 Test Item Value Reference Range Interpretation Comments VITAMIN B-12 (test code = 2840) >2000 PG/ML VITAMIN [id number] 00:00:00 Test Item Value Reference Range Interpretation Comments VITAMIN B-12 (test code = 2840) >2000 PG/ML VITAMIN D, 25 [id number] 00:00:00 Test Item Value Reference Range Interpretation Comments VITAMIN D, 25 OH (test code = 4958) 35 NG/ML VITAMIN D, 25 [id number] 00:00:00 Test Item Value Reference Range Interpretation Comments VITAMIN D, 25 OH (test code = 4958) 35 NG/ML COMPREHENSIVE METABOLIC [id number] 00:00:00 Test Item Value Reference Range Interpretation Comments GLUCOSE (test code = 2217) 95 MG/DL BUN (test code = 2208) 7 MG/DL CREATININE (test code = 2214) 0.91 MG/DL eGFR (2020 CKD-EPI) (test code 82 ML/MIN/1.73 = 84302) CALC BUN/CREAT (test code = 8 RATIO 2235) SODIUM (test code = 2231) 142 MEQ/L POTASSIUM (test code = 2228) 4.5 MEQ/L CHLORIDE (test code = 2215) 104 MEQ/L CARBON DIOXIDE (test code = 24 MEQ/L 220) CALCIUM (test code = 2209) 10.0 MG/DL PROTEIN, TOTAL (test code = 7.5 G/DL 2228) ALBUMIN (test code = 2201) 4.7 G/DL CALC GLOBULIN (test code = 2.8 G/DL 2240) CALC A/G RATIO (test code = 1.7 RATIO 2234) BILIRUBIN, TOTAL (test code = 0.4 MG/DL 2206) ALKALINE PHOSPHATASE (test 76 U/L code = 2204) AST (test code = 2218) 10 U/L ALT (test code = 2219) 6 U/L COMPREHENSIVE METABOLIC [id number] 00:00:00 Test Item Value Reference Range Interpretation Comments GLUCOSE (test code = 2217) 95 MG/DL BUN (test code = 2208) 7 MG/DL CREATININE (test code = 2214) 0.91 MG/DL eGFR (2020 CKD-EPI) (test code 82 ML/MIN/1.73 = 41154) CALC BUN/CREAT (test code = 8 RATIO 2235) SODIUM (test code = 2231) 142 MEQ/L POTASSIUM (test code = 2228) 4.5 MEQ/L CHLORIDE (test code = 2215) 104 MEQ/L CARBON DIOXIDE (test code = 24 MEQ/L 2205) CALCIUM (test code = 2209) 10.0 MG/DL PROTEIN, TOTAL (test code = 7.5 G/DL 2228) ALBUMIN (test code = 2201) 4.7 G/DL CALC GLOBULIN (test code = 2.8 G/DL 2240) CALC A/G RATIO (test code = 1.7 RATIO 2234) BILIRUBIN, TOTAL (test code = 0.4 MG/DL 2207) ALKALINE PHOSPHATASE (test 76 U/L code = 2204) AST (test code = 2218) 10 U/L ALT (test code = 2219) 6 U/L CBC W/AUTO [id number] 00:00:00 Test Item Value Reference Range Interpretation Comments WBC (test code = 1001) 6.0 K/UL RBC (test code = 1002) 4.36 M/UL HEMOGLOBIN (test code = 1003) 13.7 G/DL HEMATOCRIT (test code = 1004) 40.3 % MCV (test code = 1005) 92.4 fL MCH (test code = 1006) 31.4 PG MCHC (test code = 1007) 34.0 G/DL RDW (test code = 1038) 11.9 % NEUTROPHILS (test code = 1008) 47.9 % LYMPHOCYTES (test code = 1010) 42.2 % MONOCYTES (test code = 1011) 6.5 % EOSINOPHILS (test code = 1012) 2.3 % BASOPHILS (test code = 1013) 0.8 % IMMATURE GRANULOCYTES (test 0.3 % code = 1036) NUCLEATED RBCS (test code = 0.0 /100WBC'S 1065) PLATELET COUNT (test code = 329 K/UL 1015) ABSOLUTE NEUTROPHILS (test code 2.85 K/UL = 1066) ABSOLUTE LYMPHOCYTES (test code 2.52 K/UL = 1067) ABSOLUTE MONOCYTES (test code = 0.39 K/UL 1068) ABSOLUTE EOSINOPHILS (test code 0.14 K/UL = 1040) ABSOLUTE BASOPHILS (test code = 0.05 K/UL 1069) ABS IMMATURE GRANULOCYTES (test 0.02 K/UL code = 1020) ABS NUCLEATED RBCS (test code = 0.00 K/UL 28358) CBC W/AUTO [id number] 00:00:00 Test Item Value Reference Range Interpretation Comments WBC (test code = 1001) 6.0 K/UL RBC (test code = 1002) 4.36 M/UL HEMOGLOBIN (test code = 1003) 13.7 G/DL HEMATOCRIT (test code = 1004) 40.3 % MCV (test code = 1005) 92.4 fL MCH (test code = 1006) 31.4 PG MCHC (test code = 1007) 34.0 G/DL RDW (test code = 1038) 11.9 % NEUTROPHILS (test code = 1008) 47.9 % LYMPHOCYTES (test code = 1010) 42.2 % MONOCYTES (test code = 1011) 6.5 % EOSINOPHILS (test code = 1012) 2.3 % BASOPHILS (test code = 1013) 0.8 % IMMATURE GRANULOCYTES (test 0.3 % code = 1036) NUCLEATED RBCS (test code = 0.0 /100WBC'S 1065) PLATELET COUNT (test code = 329 K/UL 1015) ABSOLUTE NEUTROPHILS (test code 2.85 K/UL = 1066) ABSOLUTE LYMPHOCYTES (test code 2.52 K/UL = 1067) ABSOLUTE MONOCYTES (test code = 0.39 K/UL 1068) ABSOLUTE EOSINOPHILS (test code 0.14 K/UL = 1040) ABSOLUTE BASOPHILS (test code = 0.05 K/UL 1069) ABS IMMATURE GRANULOCYTES (test 0.02 K/UL code = 1020) ABS NUCLEATED RBCS (test code = 0.00 K/UL 18168) CBC W/AUTO [id number] 00:00:00 Test Item Value Reference Range Interpretation Comments WBC (test code = 1001) 6.0 K/UL RBC (test code = 1002) 4.36 M/UL HEMOGLOBIN (test code = 1003) 13.7 G/DL HEMATOCRIT (test code = 1004) 40.3 % MCV (test code = 1005) 92.4 fL MCH (test code = 1006) 31.4 PG MCHC (test code = 1007) 34.0 G/DL RDW (test code = 1038) 11.9 % NEUTROPHILS (test code = 1008) 47.9 % LYMPHOCYTES (test code = 1010) 42.2 % MONOCYTES (test code = 1011) 6.5 % EOSINOPHILS (test code = 1012) 2.3 % BASOPHILS (test code = 1013) 0.8 % IMMATURE GRANULOCYTES (test 0.3 % code = 1036) NUCLEATED RBCS (test code = 0.0 /100WBC'S 1065) PLATELET COUNT (test code = 329 K/UL 1015) ABSOLUTE NEUTROPHILS (test code 2.85 K/UL = 1066) ABSOLUTE LYMPHOCYTES (test code 2.52 K/UL = 1067) ABSOLUTE MONOCYTES (test code = 0.39 K/UL 1068) ABSOLUTE EOSINOPHILS (test code 0.14 K/UL = 1040) ABSOLUTE BASOPHILS (test code = 0.05 K/UL 1069) ABS IMMATURE GRANULOCYTES (test 0.02 K/UL code = 1020) ABS NUCLEATED RBCS (test code = 0.00 K/UL 91306) LIPID [id number] 00:00:00 Test Item Value Reference Range Interpretation Comments CHOLESTEROL (test code = 2210) 262 MG/DL TRIGLYCERIDES (test code = 2232) 113 MG/DL HDL CHOLESTEROL (test code = 2220) 58 MG/DL CALC LDL CHOL (test code = 2237) 180 MG/DL RISK RATIO LDL/HDL (test code = 3.10 RATIO 2238) LIPID [id number] 00:00:00 Test Item Value Reference Range Interpretation Comments CHOLESTEROL (test code = 2210) 262 MG/DL TRIGLYCERIDES (test code = 2232) 113 MG/DL HDL CHOLESTEROL (test code = 2220) 58 MG/DL CALC LDL CHOL (test code = 2237) 180 MG/DL RISK RATIO LDL/HDL (test code = 3.10 RATIO 2238) VITAMIN [id number] 00:00:00 Test Item Value Reference Range Interpretation Comments VITAMIN B-12 (test code = 2840) >2000 PG/ML VITAMIN [id number] 00:00:00 Test Item Value Reference Range Interpretation Comments VITAMIN B-12 (test code = 2840) >2000 PG/ML VITAMIN [id number] 00:00:00 Test Item Value Reference Range Interpretation Comments VITAMIN B-12 (test code = 2840) >2000 PG/ML VITAMIN D, 25 [id number] 00:00:00 Test Item Value Reference Range Interpretation Comments VITAMIN D, 25 OH (test code = 4958) 35 NG/ML VITAMIN D, 25 [id number] 00:00:00 Test Item Value Reference Range Interpretation Comments VITAMIN D, 25 OH (test code = 4958) 35 NG/ML COMPREHENSIVE METABOLIC [id number] 00:00:00 Test Item Value Reference Range Interpretation Comments GLUCOSE (test code = 2217) 95 MG/DL BUN (test code = 2208) 7 MG/DL CREATININE (test code = 2214) 0.91 MG/DL eGFR (2020 CKD-EPI) (test code 82 ML/MIN/1.73 = 89110) CALC BUN/CREAT (test code = 8 RATIO 2235) SODIUM (test code = 2231) 142 MEQ/L POTASSIUM (test code = 2228) 4.5 MEQ/L CHLORIDE (test code = 2215) 104 MEQ/L CARBON DIOXIDE (test code = 24 MEQ/L 2206) CALCIUM (test code = 2209) 10.0 MG/DL PROTEIN, TOTAL (test code = 7.5 G/DL 2228) ALBUMIN (test code = 2201) 4.7 G/DL CALC GLOBULIN (test code = 2.8 G/DL 2240) CALC A/G RATIO (test code = 1.7 RATIO 2234) BILIRUBIN, TOTAL (test code = 0.4 MG/DL 2206) ALKALINE PHOSPHATASE (test 76 U/L code = 2204) AST (test code = 2218) 10 U/L ALT (test code = 2219) 6 U/L COMPREHENSIVE METABOLIC [id number] 00:00:00 Test Item Value Reference Range Interpretation Comments GLUCOSE (test code = 2217) 95 MG/DL BUN (test code = 2208) 7 MG/DL CREATININE (test code = 2214) 0.91 MG/DL eGFR (2020 CKD-EPI) (test code 82 ML/MIN/1.73 = 46795) CALC BUN/CREAT (test code = 8 RATIO 2235) SODIUM (test code = 2231) 142 MEQ/L POTASSIUM (test code = 2228) 4.5 MEQ/L CHLORIDE (test code = 2215) 104 MEQ/L CARBON DIOXIDE (test code = 24 MEQ/L 2205) CALCIUM (test code = 2209) 10.0 MG/DL PROTEIN, TOTAL (test code = 7.5 G/DL 2228) ALBUMIN (test code = 2201) 4.7 G/DL CALC GLOBULIN (test code = 2.8 G/DL 2240) CALC A/G RATIO (test code = 1.7 RATIO 2234) BILIRUBIN, TOTAL (test code = 0.4 MG/DL 2206) ALKALINE PHOSPHATASE (test 76 U/L code = 2204) AST (test code = 2218) 10 U/L ALT (test code = 2219) 6 U/L CBC W/AUTO [id number] 00:00:00 Test Item Value Reference Range Interpretation Comments WBC (test code = 1001) 6.0 K/UL RBC (test code = 1002) 4.36 M/UL HEMOGLOBIN (test code = 1003) 13.7 G/DL HEMATOCRIT (test code = 1004) 40.3 % MCV (test code = 1005) 92.4 fL MCH (test code = 1006) 31.4 PG MCHC (test code = 1007) 34.0 G/DL RDW (test code = 1038) 11.9 % NEUTROPHILS (test code = 1008) 47.9 % LYMPHOCYTES (test code = 1010) 42.2 % MONOCYTES (test code = 1011) 6.5 % EOSINOPHILS (test code = 1012) 2.3 % BASOPHILS (test code = 1013) 0.8 % IMMATURE GRANULOCYTES (test 0.3 % code = 1036) NUCLEATED RBCS (test code = 0.0 /100WBC'S 1065) PLATELET COUNT (test code = 329 K/UL 1015) ABSOLUTE NEUTROPHILS (test code 2.85 K/UL = 1066) ABSOLUTE LYMPHOCYTES (test code 2.52 K/UL = 1067) ABSOLUTE MONOCYTES (test code = 0.39 K/UL 1068) ABSOLUTE EOSINOPHILS (test code 0.14 K/UL = 1040) ABSOLUTE BASOPHILS (test code = 0.05 K/UL 1069) ABS IMMATURE GRANULOCYTES (test 0.02 K/UL code = 1020) ABS NUCLEATED RBCS (test code = 0.00 K/UL 92541) CBC W/AUTO [id number] 00:00:00 Test Item Value Reference Range Interpretation Comments WBC (test code = 1001) 6.0 K/UL RBC (test code = 1002) 4.36 M/UL HEMOGLOBIN (test code = 1003) 13.7 G/DL HEMATOCRIT (test code = 1004) 40.3 % MCV (test code = 1005) 92.4 fL MCH (test code = 1006) 31.4 PG MCHC (test code = 1007) 34.0 G/DL RDW (test code = 1038) 11.9 % NEUTROPHILS (test code = 1008) 47.9 % LYMPHOCYTES (test code = 1010) 42.2 % MONOCYTES (test code = 1011) 6.5 % EOSINOPHILS (test code = 1012) 2.3 % BASOPHILS (test code = 1013) 0.8 % IMMATURE GRANULOCYTES (test 0.3 % code = 1036) NUCLEATED RBCS (test code = 0.0 /100WBC'S 1065) PLATELET COUNT (test code = 329 K/UL 1015) ABSOLUTE NEUTROPHILS (test code 2.85 K/UL = 1066) ABSOLUTE LYMPHOCYTES (test code 2.52 K/UL = 1067) ABSOLUTE MONOCYTES (test code = 0.39 K/UL 1068) ABSOLUTE EOSINOPHILS (test code 0.14 K/UL = 1040) ABSOLUTE BASOPHILS (test code = 0.05 K/UL 1069) ABS IMMATURE GRANULOCYTES (test 0.02 K/UL code = 1020) ABS NUCLEATED RBCS (test code = 0.00 K/UL 56771) CBC W/AUTO [id number] 00:00:00 Test Item Value Reference Range Interpretation Comments WBC (test code = 1001) 6.0 K/UL RBC (test code = 1002) 4.36 M/UL HEMOGLOBIN (test code = 1003) 13.7 G/DL HEMATOCRIT (test code = 1004) 40.3 % MCV (test code = 1005) 92.4 fL MCH (test code = 1006) 31.4 PG MCHC (test code = 1007) 34.0 G/DL RDW (test code = 1038) 11.9 % NEUTROPHILS (test code = 1008) 47.9 % LYMPHOCYTES (test code = 1010) 42.2 % MONOCYTES (test code = 1011) 6.5 % EOSINOPHILS (test code = 1012) 2.3 % BASOPHILS (test code = 1013) 0.8 % IMMATURE GRANULOCYTES (test 0.3 % code = 1036) NUCLEATED RBCS (test code = 0.0 /100WBC'S 1065) PLATELET COUNT (test code = 329 K/UL 1015) ABSOLUTE NEUTROPHILS (test code 2.85 K/UL = 1066) ABSOLUTE LYMPHOCYTES (test code 2.52 K/UL = 1067) ABSOLUTE MONOCYTES (test code = 0.39 K/UL 1068) ABSOLUTE EOSINOPHILS (test code 0.14 K/UL = 1040) ABSOLUTE BASOPHILS (test code = 0.05 K/UL 1069) ABS IMMATURE GRANULOCYTES (test 0.02 K/UL code = 1020) ABS NUCLEATED RBCS (test code = 0.00 K/UL 17321) LIPID [id number] 00:00:00 Test Item Value Reference Range Interpretation Comments CHOLESTEROL (test code = 2210) 262 MG/DL TRIGLYCERIDES (test code = 2232) 113 MG/DL HDL CHOLESTEROL (test code = 2220) 58 MG/DL CALC LDL CHOL (test code = 2237) 180 MG/DL RISK RATIO LDL/HDL (test code = 3.10 RATIO 2238) LIPID [id number] 00:00:00 Test Item Value Reference Range Interpretation Comments CHOLESTEROL (test code = 2210) 262 MG/DL TRIGLYCERIDES (test code = 2232) 113 MG/DL HDL CHOLESTEROL (test code = 2220) 58 MG/DL CALC LDL CHOL (test code = 2237) 180 MG/DL RISK RATIO LDL/HDL (test code = 3.10 RATIO 2238) VITAMIN [id number] 00:00:00 Test Item Value Reference Range Interpretation Comments VITAMIN B-12 (test code = 2840) >2000 PG/ML VITAMIN [id number] 00:00:00 Test Item Value Reference Range Interpretation Comments VITAMIN B-12 (test code = 2840) >2000 PG/ML VITAMIN [id number] 00:00:00 Test Item Value Reference Range Interpretation Comments VITAMIN B-12 (test code = 2840) >2000 PG/ML VITAMIN D, 25 [id number] 00:00:00 Test Item Value Reference Range Interpretation Comments VITAMIN D, 25 OH (test code = 4958) 35 NG/ML VITAMIN D, 25 [id number] 00:00:00 Test Item Value Reference Range Interpretation Comments VITAMIN D, 25 OH (test code = 4958) 35 NG/ML COMPREHENSIVE METABOLIC [id number] 00:00:00 Test Item Value Reference Range Interpretation Comments GLUCOSE (test code = 2217) 95 MG/DL BUN (test code = 2208) 7 MG/DL CREATININE (test code = 2214) 0.91 MG/DL eGFR (2020 CKD-EPI) (test code 82 ML/MIN/1.73 = 23828) CALC BUN/CREAT (test code = 8 RATIO 2235) SODIUM (test code = 2231) 142 MEQ/L POTASSIUM (test code = 2228) 4.5 MEQ/L CHLORIDE (test code = 2215) 104 MEQ/L CARBON DIOXIDE (test code = 24 MEQ/L 2205) CALCIUM (test code = 2209) 10.0 MG/DL PROTEIN, TOTAL (test code = 7.5 G/DL 222) ALBUMIN (test code = 2201) 4.7 G/DL CALC GLOBULIN (test code = 2.8 G/DL 2240) CALC A/G RATIO (test code = 1.7 RATIO 2234) BILIRUBIN, TOTAL (test code = 0.4 MG/DL 2206) ALKALINE PHOSPHATASE (test 76 U/L code = 2204) AST (test code = 2218) 10 U/L ALT (test code = 2219) 6 U/L COMPREHENSIVE METABOLIC [id number] 00:00:00 Test Item Value Reference Range Interpretation Comments GLUCOSE (test code = 2217) 95 MG/DL BUN (test code = 2208) 7 MG/DL CREATININE (test code = 2214) 0.91 MG/DL eGFR (2020 CKD-EPI) (test code 82 ML/MIN/1.73 = 97208) CALC BUN/CREAT (test code = 8 RATIO 2235) SODIUM (test code = 2231) 142 MEQ/L POTASSIUM (test code = 2228) 4.5 MEQ/L CHLORIDE (test code = 2215) 104 MEQ/L CARBON DIOXIDE (test code = 24 MEQ/L 2205) CALCIUM (test code = 2209) 10.0 MG/DL PROTEIN, TOTAL (test code = 7.5 G/DL 2228) ALBUMIN (test code = 2201) 4.7 G/DL CALC GLOBULIN (test code = 2.8 G/DL 2240) CALC A/G RATIO (test code = 1.7 RATIO 2234) BILIRUBIN, TOTAL (test code = 0.4 MG/DL 2206) ALKALINE PHOSPHATASE (test 76 U/L code = 2204) AST (test code = 2218) 10 U/L ALT (test code = 2219) 6 U/L CBC W/AUTO [id number] 00:00:00 Test Item Value Reference Range Interpretation Comments WBC (test code = 1001) 6.0 K/UL RBC (test code = 1002) 4.36 M/UL HEMOGLOBIN (test code = 1003) 13.7 G/DL HEMATOCRIT (test code = 1004) 40.3 % MCV (test code = 1005) 92.4 fL MCH (test code = 1006) 31.4 PG MCHC (test code = 1007) 34.0 G/DL RDW (test code = 1038) 11.9 % NEUTROPHILS (test code = 1008) 47.9 % LYMPHOCYTES (test code = 1010) 42.2 % MONOCYTES (test code = 1011) 6.5 % EOSINOPHILS (test code = 1012) 2.3 % BASOPHILS (test code = 1013) 0.8 % IMMATURE GRANULOCYTES (test 0.3 % code = 1036) NUCLEATED RBCS (test code = 0.0 /100WBC'S 1065) PLATELET COUNT (test code = 329 K/UL 1015) ABSOLUTE NEUTROPHILS (test code 2.85 K/UL = 1066) ABSOLUTE LYMPHOCYTES (test code 2.52 K/UL = 1067) ABSOLUTE MONOCYTES (test code = 0.39 K/UL 1068) ABSOLUTE EOSINOPHILS (test code 0.14 K/UL = 1040) ABSOLUTE BASOPHILS (test code = 0.05 K/UL 1069) ABS IMMATURE GRANULOCYTES (test 0.02 K/UL code = 1020) ABS NUCLEATED RBCS (test code = 0.00 K/UL 31229) CBC W/AUTO [id number] 00:00:00 Test Item Value Reference Range Interpretation Comments WBC (test code = 1001) 6.0 K/UL RBC (test code = 1002) 4.36 M/UL HEMOGLOBIN (test code = 1003) 13.7 G/DL HEMATOCRIT (test code = 1004) 40.3 % MCV (test code = 1005) 92.4 fL MCH (test code = 1006) 31.4 PG MCHC (test code = 1007) 34.0 G/DL RDW (test code = 1038) 11.9 % NEUTROPHILS (test code = 1008) 47.9 % LYMPHOCYTES (test code = 1010) 42.2 % MONOCYTES (test code = 1011) 6.5 % EOSINOPHILS (test code = 1012) 2.3 % BASOPHILS (test code = 1013) 0.8 % IMMATURE GRANULOCYTES (test 0.3 % code = 1036) NUCLEATED RBCS (test code = 0.0 /100WBC'S 1065) PLATELET COUNT (test code = 329 K/UL 1015) ABSOLUTE NEUTROPHILS (test code 2.85 K/UL = 1066) ABSOLUTE LYMPHOCYTES (test code 2.52 K/UL = 1067) ABSOLUTE MONOCYTES (test code = 0.39 K/UL 1068) ABSOLUTE EOSINOPHILS (test code 0.14 K/UL = 1040) ABSOLUTE BASOPHILS (test code = 0.05 K/UL 1069) ABS IMMATURE GRANULOCYTES (test 0.02 K/UL code = 1020) ABS NUCLEATED RBCS (test code = 0.00 K/UL 27998) CBC W/AUTO [id number] 00:00:00 Test Item Value Reference Range Interpretation Comments WBC (test code = 1001) 6.0 K/UL RBC (test code = 1002) 4.36 M/UL HEMOGLOBIN (test code = 1003) 13.7 G/DL HEMATOCRIT (test code = 1004) 40.3 % MCV (test code = 1005) 92.4 fL MCH (test code = 1006) 31.4 PG MCHC (test code = 1007) 34.0 G/DL RDW (test code = 1038) 11.9 % NEUTROPHILS (test code = 1008) 47.9 % LYMPHOCYTES (test code = 1010) 42.2 % MONOCYTES (test code = 1011) 6.5 % EOSINOPHILS (test code = 1012) 2.3 % BASOPHILS (test code = 1013) 0.8 % IMMATURE GRANULOCYTES (test 0.3 % code = 1036) NUCLEATED RBCS (test code = 0.0 /100WBC'S 1065) PLATELET COUNT (test code = 329 K/UL 1015) ABSOLUTE NEUTROPHILS (test code 2.85 K/UL = 1066) ABSOLUTE LYMPHOCYTES (test code 2.52 K/UL = 1067) ABSOLUTE MONOCYTES (test code = 0.39 K/UL 1068) ABSOLUTE EOSINOPHILS (test code 0.14 K/UL = 1040) ABSOLUTE BASOPHILS (test code = 0.05 K/UL 1069) ABS IMMATURE GRANULOCYTES (test 0.02 K/UL code = 1020) ABS NUCLEATED RBCS (test code = 0.00 K/UL 48900) LIPID [id number] 00:00:00 Test Item Value Reference Range Interpretation Comments CHOLESTEROL (test code = 2210) 262 MG/DL TRIGLYCERIDES (test code = 2232) 113 MG/DL HDL CHOLESTEROL (test code = 2220) 58 MG/DL CALC LDL CHOL (test code = 2237) 180 MG/DL RISK RATIO LDL/HDL (test code = 3.10 RATIO 2238) LIPID [id number] 00:00:00 Test Item Value Reference Range Interpretation Comments CHOLESTEROL (test code = 2210) 262 MG/DL TRIGLYCERIDES (test code = 2232) 113 MG/DL HDL CHOLESTEROL (test code = 2220) 58 MG/DL CALC LDL CHOL (test code = 2237) 180 MG/DL RISK RATIO LDL/HDL (test code = 3.10 RATIO 2238) VITAMIN [id number] 00:00:00 Test Item Value Reference Range Interpretation Comments VITAMIN B-12 (test code = 2840) >2000 PG/ML
[2022-10-21] MEDS ORDERED: ASPIRIN 81 MG CHEWABLE TABLET ONE (05:34)
[2022-10-21 06:04] LABS: Absolute Lymphocytes (CBC) 1.7 K/uL (0.7-4.9); Hematocrit 41.4 % (36.0-45.0); Lymphocytes % 26.5 % (15.3-44.8); MCV 90.3 fL (80-100); RBC Red Blood Cell Count 4.59 M/uL (3.86-4.86)
[2022-10-21 06:09] LABS: Protime INR 1.11
[2022-10-21] MEDS ORDERED: LORazepam 2 MG/ML VIAL ONE (06:21)
[2022-10-21] MEDS ORDERED: NA CHLORIDE 0.9% 1,000 ML ONE (06:21)
[2022-10-21 06:23] LABS: Barbiturates NEGATIVE (NEGATIVE); Benzodiazepines NEGATIVE (NEGATIVE); Cocaine NEGATIVE (NEGATIVE); METHAMPHETAM NEGATIVE (NEGATIVE); Methadone NEGATIVE (NEGATIVE); Opiates NEGATIVE (NEGATIVE); Phencyclidine NEGATIVE (NEGATIVE); THC Cannibis POSITIVE (NEGATIVE)
[2022-10-21 06:25] LABS: ALT/SGPT 25 U/L (13-56); AST/SGOT 14 U/L (15-37); Albumin 4.2 g/dL (3.4-5.0); Alkaline Phosphatase 81 U/L (45-117); BUN Blood Urea Nitrogen 9 mg/dL (7-18); Bicarbonate 28 mmol/L (21-32); Bilirubin Direct 0.1 mg/dL (0-0.2); Bilirubin Total 0.4 mg/dL (0.2-1.0); Glomerular Filtration Rate 75 ml/min (=/>90); Glucose Level 108 mg/dL (74-106); Magnesium 2.2 mg/dL (1.6-2.4); NT PRO-BNP 27 pg/mL (<125); Potassium 3.3 mmol/L (3.5-5.1); Protein, Total 7.7 g/dL (6.4-8.2); Sodium Level 138 mmol/L (136-145)
[2022-10-21 06:26] LABS: Troponin High Sensitivity < 3.0 pg/mL (<58.9)
[2022-10-21 06:32] LABS: Thyroid Stimulating Hormone 1.35 uIU/mL (0.358-3.740)
[2022-10-21 06:37] LABS: Urine Blood Trace-intact (Negative); Urine Glucose Negative (Negative); Urine Protein Negative (Negative); Urine Specific Gravity <=1.005 (1.005-1.030); Urine pH 5.5 (5.0-7.0)
--- NOTE | 2022-10-21 07:13 | ER ---
Nurse's Notes [facility] Name: Ellie Perera Age: 41 yrs Sex: Female : 1980 Arrival Date: 10/21/2022 Time: 04:26 Bed 14 Private MD: Diagnosis: Tachycardia, unspecified;Chest pain, unspecified;Anxiety disorder, unspecified-Acute anxiety reaction associated with chest pain and palpitations Presentation: 10/21 05:09 Chief complaint: Chief complaint: Patient states: I woke up not feeling my normal, I ha1 felt chest palpitations that are not going away. Also, I feel dizziness while walking. Ebola Screen: No symptoms or risks identified at this time. Initial Sepsis Screen: Does the patient meet any 2 criteria? No. Patient's initial sepsis screen is negative. Does the patient have a suspected source of infection? No. Patient's initial sepsis screen is negative. Risk Assessment: Do you want to hurt yourself or someone else? Patient reports no desire to harm self or others. Onset of symptoms was October 21, 2022. 05:09 Method Of Arrival: Ambulatory ha1 05:09 Acuity: DOUG 3 ha1 05:45 Coronavirus screen: Vaccine status: Patient reports receiving the 2nd dose of the covid ha1 vaccine. Triage Assessment: 04:37 General: Appears comfortable, Behavior is calm, cooperative. Pain: Complains of pain in ha1 chest palpitations Pain does not radiate. EENT: No signs and/or symptoms were reported regarding the EENT system. Neuro: Level of Consciousness is awake, alert, obeys commands, Oriented to person, place, time, situation. Cardiovascular: Capillary refill Patient's skin is warm and dry. Respiratory: Airway is patent Respiratory effort is even, unlabored, Respiratory pattern is regular, symmetrical. GI: Abdomen is flat, non-distended, Bowel sounds present X 4 quads. Reports vomiting. : No signs and/or symptoms were reported regarding the genitourinary system. Derm: No signs and/or symptoms reported regarding the dermatologic system. Skin is pink, warm \T\ dry. Musculoskeletal: Circulation, motion, and sensation intact. Range of motion: intact in all extremities. 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 - Social history:: Smoking status: Patient denies any tobacco usage or history of. - Family history:: not pertinent. - Hospitalizations: : No recent hospitalization is reported. Screenin:11 Abuse screen: Denies threats or abuse. Denies injuries from another. Nutritional ha1 screening: No deficits noted. Tuberculosis screening: No symptoms or risk factors identified. 07:30 [facility] ED Fall Risk Assessment (Adult) History of falling in the last 3 months, ha1 including since admission No falls in past 3 months (0 pts) Confusion or Disorientation No (0 pts) Intoxicated or Sedated No (0 pts) Impaired Gait No (0 pts) Mobility Assist Device Used No (0 pt) Altered Elimination No (0 pt) Score/Fall Risk Level 0 - 2 = Low Risk Oriented to surroundings, Maintained a safe environment. Assessment: 04:47 Reassessment: see triage assessment. ha1 05:40 Reassessment: Patient and/or family updated on plan of care and expected duration. Pain ha1 level reassessed. Patient is alert, oriented x 3, equal unlabored respirations, skin warm/dry/pink. 06:25 Reassessment: Patient and/or family updated on plan of care and expected duration. Pain ha1 level reassessed. Patient is alert, oriented x 3, equal unlabored respirations, skin warm/dry/pink. 07:30 Reassessment: Patient appears in no apparent distress at this time. Patient and/or ha1 family updated on plan of care and expected duration. Pain level reassessed. Patient is alert, oriented x 3, equal unlabored respirations, skin warm/dry/pink. Patient states feeling better. Patient states symptoms have improved. General: Appears in no apparent distress. comfortable, Behavior is calm, cooperative. Pain: Denies pain. Neuro: Level of Consciousness is awake, alert, obeys commands, Oriented to person, place, time, situation. Respiratory: No deficits noted. Airway is patent Respiratory effort is even, unlabored, Respiratory pattern is regular, symmetrical. GI: No deficits noted. No signs and/or symptoms were reported involving the gastrointestinal system. 07:30 Pain: Pain began. ha1 Vital Signs: 05:09 BP 132 / 97; Pulse 103; Resp 20 S; Pulse Ox 99% ; Weight 57.15 kg; Height 5 ft. 4 in. ha1 (162.56 cm); 06:00 BP 118 / 84; Pulse 104; Resp 18 S; Pulse Ox 98% on R/A; ha1 07:30 BP 120 / 84; Pulse 99; Resp 20; Temp 98.3(O); Pulse Ox 100% on R/A; ha1 05:09 Body Mass Index 21.63 (57.15 kg, 162.56 cm) ha1 ED Course: 04:26 Patient arrived in ED. [id number] 04:45 Helder Little MD is Attending Physician. sp4 05:06 Carmen Crews, LEATHA is Primary Nurse. ha1 05:10 Triage completed. ha1 05:11 Patient has correct armband on for positive identification. Placed in gown. Bed in low ha1 position. Call light in reach. Side rails up X 1. 05:52 Troponin HS Sent. ha1 05:52 PT-INR Sent. ha1 05:52 NT PRO-BNP Sent. ha1 05:52 Magnesium Sent. ha1 05:52 D-Dimer Sent. ha1 05:52 CBC with Diff Sent. ha1 05:52 Basic Metabolic Panel Sent. ha1 05:52 TSH Sent. ha1 05:52 T4 Free Sent. ha1 06:47 Test, Serum Sent. ke1 07:30 Client placed on continuous cardiac and pulse oximetry monitoring. NIBP monitoring ha1 applied. Warm blanket given. 07:30 Patient placed in an exam room. ha1 07:30 No provider procedures requiring assistance completed. IV discontinued, intact, ha1 bleeding controlled, No redness/swelling at site. Patient maintains SpO2 saturation greater than 95% on room air. Administered Medications: 05:51 Drug: Aspirin Chewable Tablet 324 mg Route: PO; ha1 08:01 Follow up: Response: No adverse reaction ha1 06:00 Drug: NS 0.9% 1000 ml Route: IV; Rate: 1 bolus; Site: right antecubital; ha1 07:30 Follow up: Response: No adverse reaction; IV Status: Completed infusion; IV Intake: ha1 1000ml 06:25 Drug: Ativan (LORazepam) 1 mg Route: IVP; Site: right antecubital; ha1 07:30 Follow up: Response: No adverse reaction ha1 Medication: 08:01 VIS not applicable for this client. ha1 Intake: 07:30 IV: 1000ml; Total: 1000ml. ha1 Outcome: 07:13 Discharge ordered by . sp4 07:30 Discharged to home ambulatory. ha1 07:30 Condition: stable 07:30 Discharge instructions given to patient, Instructed on discharge instructions, follow up and referral plans. Prescriptions given X 1. 08:02 Patient left the ED. ha1 Signatures: Mattie Courtney [id number] Pablo Carter RN RN 1 Carmen Crews RN RN ha1 Helder Little MD MD sp4 Corrections: (The following items were deleted from the chart) 05:48 05:09 Chief complaint: ha1 ha1
--- NOTE | 2022-10-21 07:14 | EDPHYS ---
Physician Documentation [facility] Name: Ellie Perera Age: 41 yrs Sex: Female : 1980 Arrival Date: 10/21/2022 Time: 04:26 Bed 14 Private MD: ED Physician Helder Little HPI: 10/21 04:45 This 41 yrs old Female presents to ER via Unassigned with complaints of Chest Pain, sp4 Irregular Pulse, Dizziness. 05:32 This 41 yrs old Female presents to ER via Ambulatory with complaints of Chest sp4 Pain, Irregular Pulse, Dizziness. 05:32 41-year-old female presents with acute onset or midsternal chest pain rapid heart rate sp4 irregular heart rate, dizziness and left arm tingling starting at midnight this morning. Patient states she periodically uses cannabis but denied use of any other drugs. 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 - Social history:: Smoking status: Patient denies any tobacco usage or history of. - Family history:: not pertinent. - Hospitalizations: : No recent hospitalization is reported. ROS: 05:32 Constitutional: Negative for fever, chills, and weight loss, Eyes: Negative for injury, sp4 pain, redness, and discharge, ENT: Negative for injury, pain, and discharge, Neck: Negative for injury, pain, and swelling, Cardiovascular: Negative for lower extremity edema, positive for chest pain, palpitations, rapid heart rate, dizziness Respiratory: Negative for shortness of breath, cough, wheezing, and pleuritic chest pain, Abdomen/GI: Negative for abdominal pain, nausea, vomiting, diarrhea, and constipation, Back: Negative for injury and pain, : Negative for injury, bleeding, discharge, and swelling, MS/Extremity: Negative for injury and deformity, Skin: Negative for injury, rash, and discoloration, Neuro: Negative for headache, weakness, numbness, tingling, and seizure, Psych: Negative for depression, anxiety, suicide ideation, homicidal ideation, and hallucinations, Allergy/Immunology: Negative for hives, rash, and allergies, Endocrine: Negative for neck swelling, polydipsia, polyuria, polyphagia, and marked weight changes, Hematologic/Lymphatic: Negative for swollen nodes, abnormal bleeding, and unusual bruising. Exam: 05:32 Constitutional: This is a well developed, well nourished patient who is awake, alert, sp4 and in no acute distress. Multiple facial excoriations consistent with stimulant use. Anxious appearing female but nontoxic-appearing. Tachycardia on exam Head/Face: Normocephalic, atraumatic. Eyes: Pupils equal round and reactive to light, extra-ocular motions intact. Lids and lashes normal. Conjunctiva and sclera are non-icteric and not injected. Cornea within normal limits. Periorbital areas with no swelling, redness, or edema. ENT: Nares patent. No nasal discharge, no septal abnormalities noted. Tympanic membranes are normal and external auditory canals are clear. Oropharynx with no redness, swelling, or masses, exudates, or evidence of obstruction, uvula midline. Mucous membranes moist. Neck: Trachea midline, no thyromegaly or masses palpated, and no cervical lymphadenopathy. Supple, full range of motion without nuchal rigidity, or vertebral point tenderness. No Meningismus. Chest/axilla: Normal chest wall appearance and motion. Nontender with no deformity. No lesions are appreciated. Cardiovascular: Regular rhythm with a normal S1 and S2. No gallops, murmurs, or rubs. Normal PMI, no JVD. No pulse deficits. There is mild tachycardia at 110 Respiratory: Lungs have equal breath sounds bilaterally, clear to auscultation and percussion. No rales, rhonchi or wheezes noted. No increased work of breathing, no retractions or nasal flaring. Abdomen/GI: Soft, non-tender, with normal bowel sounds. No distension or tympany. No guarding or rebound. No evidence of tenderness throughout. Back: No spinal tenderness. No costovertebral tenderness. Full range of motion. Skin: Warm, dry with normal turgor. Normal color with no evidence of cellulitis. Multiple excoriations consistent with prolonged stimulant use. Multiple neurotic excoriations MS/ Extremity: Pulses equal, no cyanosis. Neurovascular intact. Full, normal range of motion. Neuro: Awake and alert, GCS 15, oriented to person, place, time, and situation. Cranial nerves II-XII grossly intact. Motor strength 5/5 in all extremities. Sensory grossly intact. Cerebellar exam normal. Normal gait. Psych: Awake, alert, with orientation to person, place and time. Behavior, mood, and affect are within normal limits. Mild anxiety on exam 05:32 ECG was reviewed by the Attending Physician. sp4 Vital Signs: 05:09 BP 132 / 97; Pulse 103; Resp 20 S; Pulse Ox 99% ; Weight 57.15 kg; Height 5 ft. 4 in. ha1 (162.56 cm); 06:00 BP 118 / 84; Pulse 104; Resp 18 S; Pulse Ox 98% on R/A; ha1 07:30 BP 120 / 84; Pulse 99; Resp 20; Temp 98.3(O); Pulse Ox 100% on R/A; ha1 05:09 Body Mass Index 21.63 (57.15 kg, 162.56 cm) ha1 MDM: 05:30 Patient medically screened. sp4 07:09 Differential diagnosis: abnormal EKG, acute pericarditis, anxiety, coronary artery sp4 disease chest wall pain, congestive heart failure esophagitis, gastritis, gastroesophageal reflux disease (GERD), herpes zoster, myocarditis, pancreatitis, pericarditis, pleurisy, pulmonary embolus, stable angina. HEART Score: History: Slightly Suspicious (0), ECG: Normal (0), Age: < or = 45 years (0), Risk Factors: No Risk Factors Known (0), Troponin: < or = 1 x Normal Limit (0), Total Score = 0. Data reviewed: vital signs, nurses notes, lab test result(s), cardiac enzymes, CBC, drug level(s), electrolytes, hepatic panel, urinalysis, urine drug screen, EKG, radiologic studies, plain films. ED course: Patient has improved after lorazepam and IV fluids, patient is safe to discharge home with p.o. lorazepam as needed advised to see community relations advisor on outpatient basis for recurrent or persistent chest pains.. 10/21 04:46 Order name: Basic Metabolic Panel sp4 10/21 04:46 Order name: CBC with Diff sp4 10/21 04:46 Order name: D-Dimer sp4 10/21 04:46 Order name: LFT's sp4 10/21 04:46 Order name: Magnesium sp4 10/21 04:46 Order name: NT PRO-BNP sp4 10/21 04:46 Order name: PT-INR sp4 10/21 04:46 Order name: Troponin HS sp4 10/21 04:46 Order name: XRAY Chest (1 view) sp4 10/21 04:46 Order name: EKG; Complete Time: 04:48 sp4 10/21 04:46 Order name: Cardiac monitoring; Complete Time: 05:06 sp4 10/21 04:46 Order name: EKG - Nurse/Tech; Complete Time: 05:51 sp4 10/21 04:46 Order name: IV Saline Lock; Complete Time: 05:51 sp4 10/21 04:46 Order name: Labs collected and sent; Complete Time: 05:51 sp4 10/21 04:46 Order name: O2 Per Protocol; Complete Time: 05:51 sp4 10/21 04:46 Order name: O2 Sat Monitoring; Complete Time: 05:51 sp4 10/21 04:46 Order name: Urine Test (obtain specimen); Complete Time: 06:46 sp4 10/21 05:31 Order name: UDS sp4 10/21 05:31 Order name: TSH sp4 10/21 05:31 Order name: T4 Free sp4 10/21 06:05 Order name: CBC with Automated Diff; Complete Time: 06:59 EDMS 10/21 06:09 Order name: Protime (+INR); Complete Time: 06:59 EDMS 10/21 06:09 Order name: D-Dimer; Complete Time: 06:59 EDMS 10/21 06:23 Order name: Urine Drug Screen; Complete Time: 06:59 EDMS 10/21 06:26 Order name: Basic Metabolic Panel; Complete Time: 06:59 EDMS 10/21 06:26 Order name: Liver (Hepatic) Function; Complete Time: 06:59 EDMS 10/21 06:26 Order name: Troponin High Sensitivity; Complete Time: 06:59 EDMS 03/04 06:26 Order name: NT PRO-BNP; Complete Time: 06:59 EDMS 10/21 06:26 Order name: Magnesium; Complete Time: 06:59 EDMS 10/21 06:32 Order name: T4 Free; Complete Time: 06:59 EDMS 10/21 06:32 Order name: Thyroid Stimulating Hormone; Complete Time: 06:59 EDMS 04 06:36 Order name: Test, Serum eb 10/21 06:37 Order name: Urine Dipstick-Ancillary; Complete Time: 06:59 EDMS 10/21 07:34 Order name: Test Serum, [place] EDMS EC:09 Rate is 101 beats/min. Rhythm is regular. QRS [place] is Normal. [place] interval is normal. sp4 QRS interval is normal. QT interval is normal. No ST changes noted. Clinical impression: No evidence of ischemia. Interpreted by me. Administered Medications: 05:51 Drug: Aspirin Chewable Tablet 324 mg Route: PO; ha1 08:01 Follow up: Response: No adverse reaction ha1 06:00 Drug: NS 0.9% 1000 ml Route: IV; Rate: 1 bolus; Site: right antecubital; ha1 07:30 Follow up: Response: No adverse reaction; IV Status: Completed infusion; IV Intake: ha1 1000ml 06:25 Drug: Ativan (LORazepam) 1 mg Route: IVP; Site: right antecubital; ha1 07:30 Follow up: Response: No adverse reaction ha1 Disposition Summary: 10/21/22 07:13 Discharge Ordered Location: Home sp4 Problem: new sp4 Symptoms: have improved sp4 Condition: Stable sp4 Diagnosis - Tachycardia, unspecified sp4 - Chest pain, unspecified sp4 - Anxiety disorder, unspecified - Acute anxiety reaction associated with chest pain sp4 and palpitations Followup: sp4 - With: Private Physician - When: 7 - 10 days - Reason: Re-evaluation by your physician Discharge Instructions: - Discharge Summary Sheet sp4 - Panic Attack sp4 Forms: - Work release form eb - Medication Reconciliation Form sp4 - Thank You Letter sp4 Prescriptions: - Ativan 1 mg Oral Tablet - take 1 tablet by ORAL route every 8 hours As needed; 20 tablet; Refills: 0, sp4 Product Selection Permitted Signatures: Dispatcher [employer] Carmen Johnston RN RN ha1 Helder Little, MD sp4
[2022-10-21 08:09] VITALS: BP 120/84; TEMP 98.3; O2SAT 100
--- NOTE | 2022-10-21 12:21 | RAD REPORT ---
EXAM DESCRIPTION: RAD - Chest Single View - 10/21/2022 5:34 am CLINICAL HISTORY: CHEST PAIN COMPARISON: None. TECHNIQUE: XR CHEST 1 VIEW 10/21/2022 4:46 AM [facility] FINDINGS: Cardiac silhouette is normal in size. Lungs are clear without consolidation, atelectasis, mass or edema. There is no pleural effusion. There is no pneumothorax. There are no acute osseous fin dings. IMPRESSION: Clear lungs. Electronically signed by: Claude Herrera MD 10/21/2022 6:20 AM [facility] Due to temporary technical issues with the PACS/Fluency reporting system, reports are being signed by the in house radiologists without review as a courtesy to insure prompt reporting. The interpreting radiologist is fully responsible for the content of the report.
--- NOTE | 2022-10-23 16:46 | EKG ---
Test Date: 2022-10-21 Test Time: 05:41:23 Distribution Systems Superintendent: LEONIDAS MEASUREMENT RESULTS: Intervals: Rate: 101 DE: 182 QRSD: 78 QT: 358 QTc: 464 [place]: P: 101 DE: 182 QRS: 73 T: 51 INTERPRETIVE STATEMENTS: Sinus tachycardia Septal infarct, age undetermined Abnormal ECG Compared to ECG 10/21/2019 19:16:42 Myocardial infarct finding now present Electronically Signed On 10-23-22 16:39:14 FIRST SAMPLER by Kael Robertson
== END 2022-10-21 08:02 | disposition home or self-care (01) ==
LOC: ER 04:24
DX: R07.89 Other chest pain (principal); R00.0 Tachycardia, unspecified; F41.1 Generalized anxiety disorder; Z88.2 Allergy status to sulfonamides; Z88.5 Allergy status to narcotic agent
CPT/HCPCS: 96361; 93005; 85025; 80048; 36415; 83735; 84703; 85610; 85379; 80076; 84443; 81003; 84484; 84439; 83880; 80307; 71045; 96374; 99284; J7030